=== PATIENT | female | born 1950 | race American Indian/Alaskan Native ===

== ENCOUNTER 2019-06-01 13:11 | Outpatient (CLI) | payer MEDICARE, OTHER ==
--- NOTE | 2019-06-02 10:22 | DEXA Report ---
Reason: MENOPAUSAL AND PERIMENOPAUSAL DISORDER. BONE DISOR Procedure Date: 06/01/2019 Accession Number: [id number] / [id number] Procedure: DEX - Dexa Spine and/or Hip CPT Code: FULL RESULT: EXAM: Dexa Spine and/or Hip DATE: 06/01/2019 1:48 PM CLINICAL HISTORY: MENOPAUSAL AND PERIMENOPAUSAL DISORDER. BONE DISOR TECHNIQUE: Dual energy x-ray absorptiometry (DXA) was performed on a Hydrophi System. Regions measured are the AP Spine, femoral neck, and if needed forearm. COMPARISON: None. In accordance with the International Society for Clinical Densitometry (ISCD) guidelines, data from previous exams may be reanalyzed using current recommendations and techniques. This is done to allow a more accurate basis for comparison with the current study. FINDINGS: The data for the lumbar spine is as follows: BMD (g/cm/cm) T-SCORE Z-SCORE REGION L1 1.132 0.0 0.9 L2 1.142 -0.5 0.4 L3 1.320 1.0 1.9 L4 1.371 1.4 2.3 TOTAL 1.243 0.5 1.4 NOTE: All evaluable vertebrae are used for classification The data for the hip is as follows: BMD (g/cm/cm) T-SCORE Z-SCORE REGION Neck 0.877 -1.2 -0.1 TOTAL 0.824 -1.5 -0.7 NOTE: The femoral neck or total proximal femur, whichever is lowest, is used for classification. IMPRESSION: THE WHO CLASSIFICATION BASED ON THE INTERNATIONAL REFERENCE STANDARD IS OSTEOPENIA. THE FRACTURE RISK IS INCREASED. RECOMMENDATION: Patients with diagnosis of osteoporosis or osteopenia should have regular bone mineral density assessment. For those eligible for Medicare, routine testing is allowed once every 2 years. Testing frequency can be increased for patients who have rapidly progressing disease or for those who are receiving medical therapy to restore bone mass. COMMENT: World Health Organization (WHO) definitions for osteoporosis and osteopenia: NORMAL BMD: T-score at -1.0 or higher, fracture risk is low OSTEOPENIA BMD: T-score between -1.0 and -2.5, fracture risk is increased. OSTEOPOROSIS BMD: T-score at -2.5 or lower, fracture risk is high. National Osteoporosis Foundation recommends: 1. Obtain adequate dietary calcium (at least 1200 mg per day) and vitamin D (400-800 international units per day). 2. Participate, as appropriate, in regular weightbearing and muscle-strengthening exercise. 3. Avoid tobacco use and reduce alcohol and caffeine intake. 4. For more detailed information see the website at www.NOF.org.
== END 2019-06-01 13:12 | disposition home or self-care (01) ==
LOC: DI 13:11
PROVIDERS: ATTEND Family Medicine
DX: M85.89 Other specified disorders of bone density and structure, multiple sites (principal); N95.1 Menopausal and female climacteric states; N95.9 Unspecified menopausal and perimenopausal disorder
CPT/HCPCS: 77080

== ENCOUNTER 2021-03-07 17:08 | Emergency (ER) | payer MEDICARE, OTHER ==
[2021-03-07] MEDS ORDERED: predniSONE 20 MG TABLET PO STA (18:04)
[2021-03-07] MEDS ORDERED: ALBUTEROL 1 PUFF INH STA (18:05)
--- OUTSIDE RECORDS SUMMARY | 2021-03-07 18:08 | EXTERNAL MEDICAL SUMMARY RPT | Continuity of Care Document ---
:1950 Demographics Phone Unavailable Preferred Language Unknown Marital Status Unknown Mosque Affiliation Unknown Race Unknown Ethnic Group Unknown Author Organization [facility] Address [address] [phone] Phone Social History date description facility [id number]
--- NOTE | 2021-03-07 18:10 | ED Physician Documentation ---
History of Present Illness - Stated complaint Stated Complaint: FEVER,CHILLS,COUGH - Chief complaint Chief Complaint: Resp - History obtained from History obtained from: Patient - History of Present Illness Pain level max: 0 Pain level now: 0 - Additonal information Additional information: Patient is a 70-year-old female with a history of COPD who has been coughing and congested for the past 2 to 3 days. Subjective fever at home. Nothing makes it better or worse. No pain. She states she had an appoint with her doctor today but was told that she needed a Covid test before she could be seen in the office. She has been fully vaccinated with the mother no vaccine. Received both doses. Does not know of any Covid exposures. She uses inhalers at home. States she is having some difficulty breathing as well. Review of Systems Ten Systems: 10 systems reviewed and negative Constitutional: denies: Fever, Chills Ears: denies: Ear pain Nose: denies: Rhinorrhea / runny nose, Congestion Throat: denies: Sore throat Cardiac: denies: Chest pain / pressure, Palpitations Respiratory: reports: Dyspnea, Cough, Wheezing GI: denies: Abdominal Pain, Nausea, Vomiting, Diarrhea Skin: denies: Rash Musculoskeletal: denies: Neck pain, Back pain Neurologic: denies: Headache PD PAST MEDICAL HISTORY - Past Medical History Cardiovascular: Hypertension, Coronary artery disease : Kidney stones Musculoskeletal: Rheumatoid arthritis - Past Surgical History 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, 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 - Present Medications Home Medications: Ambulatory Orders Medication Instructions Recorded Confirmed ALPRAZolam [Xanax] 0.5 mg PO HS 08/14/13 03/07/21 Letrozole 2.5 mg PO DAILY 08/14/13 03/07/21 Lisinopril [Zestril] 2.5 mg PO DAILY 08/14/13 03/07/21 Venlafaxine [Effexor] 75 mg PO BID 08/14/13 03/07/21 Zolpidem [Ambien] 10 mg PO HS 08/14/13 03/07/21 carvediloL [Carvedilol] 3.125 mg PO DAILY 08/14/13 03/07/21 Albuterol Sulf [Ventolin Hfa 1 - 2 puffs INH Q4HR PRN #1 inhaler 03/07/21 Inhaler] Doxycycline Hyclate 100 mg PO BID #20 03/07/21 predniSONE [Deltasone] 10 mg PO [id number] #42 tab 03/07/21 - Allergies Allergies/Adverse Reactions: Allergies Allergy/AdvReac Type Severity Reaction Status Date / Time No Known Drug Allergies Allergy Verified 03/07/21 17:25 - Social History Does the pt smoke?: Yes Smoking Status: Current every day smoker Does the pt drink ETOH?: No Does the pt have substance abuse?: No PD ED PE NORMAL - Vitals Vital signs reviewed: Yes - General General: Alert and oriented X 3, No acute distress - HEENT HEENT: Moist mucous membranes - Neck Neck: Supple, no meningeal sign - Cardiac Cardiac: RRR - Respiratory Respiratory: Other (wheezing bilaterally. ) - Abdomen Abdomen: Soft, Non tender, Non distended - Derm Derm: Warm and dry - Extremities Extremities: No edema - Neuro Neuro: Alert and oriented X 3 - Psych Psych: Normal mood, Normal affect Results - Vitals Vitals: Vital Signs - 24 hr 03/07/21 03/07/21 03/07/21 17:21 18:24 19:15 Temperature 35.9 C L Heart Rate 95 90 91 Respiratory 20 16 20 Rate Blood Pressure 162/84 H 112/100 H O2 Saturation 97 94 Oxygen O2 Source Room air - Rads (name of study) cxr Radiology: Prelim report reviewed, EMP read contemporaneously, See rad report (no acute disease) PD MEDICAL DECISION MAKING - ED course Complexity details: reviewed results, re-evaluated patient, considered differential, d/w patient ED course: 70-year-old female with what appears to be a COPD exacerbation. No evidence of pneumonia. Patient is well-appearing, nontoxic. Will place on doxycycline for the COPD exacerbation as well as steroids. Patient counseled regarding signs and symptoms for which I believe and urgent re-evaluation would be necessary. Patient with good understanding of and agreement to plan and is comfortable going home at this time This document was made in part using voice recognition software. While efforts are made to proofread this document, sound alike and grammatical errors may occur. Departure - Departure Disposition: 01 Home, Self Care Clinical Impression: Bronchitis, COPD exacerbation Condition: Good Instructions: ED COPD Flare Follow-Up: Martha Christianson MD [Primary Care Provider] - Within 1 week Prescriptions: Albuterol Sulf [Ventolin Hfa Inhaler] 1 - 2 puffs INH Q4HR PRN #1 inhaler PRN Reason: Shortness Of Air/Wheezing predniSONE [Deltasone] 10 mg PO [id number] #42 tab Doxycycline Hyclate 100 mg PO BID #20 Comments: Take all antibiotics until gone. Return if you worsen. Follow-up with your doctor for further care. Use the inhaler as instructed. Discharge Date/Time: 03/07/21 19:16
--- NOTE | 2021-03-07 18:53 | XRAY Report ---
PROCEDURE: Chest 1 View X-Ray INDICATIONS: cough TECHNIQUE: One view of the chest was acquired. COMPARISON: None available. FINDINGS: Surgical changes and devices: Bilateral breast clips. Left axillary clips. Lungs and pleura: No pleural effusions or pneumothorax. Lungs are clear. Mediastinum: Mediastinal contours appear normal. Heart size is normal. Bones and chest wall: No suspicious bony lesions. Overlying soft tissues appear unremarkable. IMPRESSION: No acute cardiopulmonary abnormality. Reviewed by: Rajendra Ascencio MD on 03/07/2021 6:52 PM PDT Approved by: Rajendra Ascencio MD on 03/07/2021 6:52 PM PDT Station ID: [id number]
[2021-03-07 19:16] VITALS: BP 112/100
== END 2021-03-07 19:16 | disposition home or self-care (01) ==
LOC: ED 17:08
DX: J44.1 Chronic obstructive pulmonary disease with (acute) exacerbation (principal); Z20.822 Contact with and (suspected) exposure to COVID-19; I10 Essential (primary) hypertension; F17.200 Nicotine dependence, unspecified, uncomplicated
CPT/HCPCS: 71045; 94640; 99284; J7512; U0004

== ENCOUNTER 2021-11-25 16:47 | Emergency (ER) | payer MEDICARE, OTHER ==
[2021-11-25 17:07] VITALS: BP 136/81
--- NOTE | 2021-11-25 17:08 | ED Physician Documentation ---
History of Present Illness - Stated complaint Stated Complaint: C+,FEVER - Chief complaint Chief Complaint: Heent - History obtained from History obtained from: Patient - History of Present Illness Timing: Today Pain level max: 0 Pain level now: 0 - Additonal information Additional information: 71-year-old female states that she has been sick for the past several days. Cough, congestion. She took a Covid test today that was positive at home. Came in for confirmatory test. She has an appoint with her doctor tomorrow. No difficulty breathing. Nothing makes it better or worse. She states she actually feels better than she did yesterday. Has had her 2 Covid vaccinations plus a booster. Review of Systems Constitutional: reports: Fever (Fever 2 days ago, none now). 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 - Present Medications Home Medications: Ambulatory Orders Medication Instructions Recorded Confirmed ALPRAZolam [Xanax] 0.5 mg PO HS 08/14/13 03/07/21 Letrozole 2.5 mg PO DAILY 08/14/13 03/07/21 Lisinopril [Zestril] 2.5 mg PO DAILY 08/14/13 03/07/21 Venlafaxine [Effexor] 75 mg PO BID 08/14/13 03/07/21 Zolpidem [Ambien] 10 mg PO HS 08/14/13 03/07/21 carvediloL [Carvedilol] 3.125 mg PO DAILY 08/14/13 03/07/21 Albuterol Sulf [Ventolin Hfa 1 - 2 puffs INH Q4HR PRN #1 inhaler 03/07/21 Inhaler] Doxycycline Hyclate 100 mg PO BID #20 03/07/21 predniSONE [Deltasone] 10 mg PO [id number] #42 tab 03/07/21 - Allergies Allergies/Adverse Reactions: Allergies Allergy/AdvReac Type Severity Reaction Status Date / Time No Known Drug Allergies Allergy Verified 11/25/21 17:01 - Social History Does the pt smoke?: Yes Smoking Status: Current every day smoker Does the pt drink ETOH?: No Does the pt have substance abuse?: No PD ED PE NORMAL - Vitals Vital signs reviewed: Yes - General General: Alert and oriented X 3, No acute distress - HEENT HEENT: Moist mucous membranes - Neck Neck: Supple, no meningeal sign - Cardiac Cardiac: RRR - Respiratory Respiratory: No respiratory distress, Clear bilaterally - Derm Derm: Warm and dry - Neuro Neuro: Alert and oriented X 3 - Psych Psych: Normal mood, Normal affect Results - Vitals Vitals: Vital Signs - 24 hr 11/25/21 16:57 Temperature 37.3 C Heart Rate 86 Respiratory 17 Rate Blood Pressure 136/81 H O2 Saturation 99 Oxygen O2 Source Room air PD MEDICAL DECISION MAKING - ED course Complexity details: considered differential, d/w patient ED course: Patient is well-appearing, nontoxic. Afebrile. No hypoxia. No respiratory distress. Covid test sent. Patient counseled regarding signs and symptoms for which I believe and urgent re-evaluation would be necessary. Patient with good understanding of and agreement to plan and is comfortable going home at this time This document was made in part using voice recognition software. While efforts are made to proofread this document, sound alike and grammatical errors may occur. Departure - Departure Disposition: 01 Home, Self Care Clinical Impression: COVID-19 Condition: Good Instructions: ED Viral Syndrome Follow-Up: Austin Lund MD [Primary Care Provider] - As Needed Comments: You have a Covid test pending. You need to self quarantine until the result is done and negative. The results should be done in 24-48 hours. We will call with a positive result, the fastest way to get a negative result for confirmation though is to go to the hospital website at [email or web address], click on the my [email or web address] tab and sign up for the patient portal. If any of your friends and/or family need to be tested, they can call the hospital at [phone] for an appointment to have their Covid test. Discharge Date/Time: 11/25/21 17:24
== END 2021-11-25 17:24 | disposition home or self-care (01) ==
LOC: ED 16:47
DX: U07.1 COVID-19 (principal); I10 Essential (primary) hypertension; F17.200 Nicotine dependence, unspecified, uncomplicated
CPT/HCPCS: 99282; 99283; U0004

== ENCOUNTER 2022-08-18 14:43 | Emergency (ER) | payer MEDICARE, OTHER ==
--- OUTSIDE RECORDS SUMMARY | 2022-08-18 14:52 | EXTERNAL MEDICAL SUMMARY RPT | Continuity of Care Document ---
:1950 Author Organization [facility] [place] Address [address] [place] [address] Phone Allergies and Intolerances date description facility type (no date) No Known Drug Allergies [facility] (unkn own) Encounters No information. Functional Status No information. Immunizations No information. Medications No information. Problems No information. Procedures No information. Results/Labs test date author facility value unit interpret ation Result panel 1 (unknown) (no (unknown) (unknown) (no value) (units (unk nown) date) unknown) (unknown) (no (unknown) (unknown) [address] [place] [address] (units (unknown) date) unknown) (unknown) (no (unknown) (unknown) [place] [address] (unit s (unknown) date) unknown) (unknown) (no (unknown) (unknown) [facility] (units (unknown) date) unknown) (unknown) (no (unknown) (unknown) Signed (units (unkno wn) date) unknown) (unknown) (no (unknown) (unknown) XRay Report (units (un known) date) unknown) (unknown) (no (unknown) (unknown) (no value) (units (unk nown) date) unknown) (unknown) (no (unknown) (unknown) 07/09/22 (units (unkno wn) date) unknown) (unknown) (no (unknown) (unknown) Approved by: Matt (units (unknown) date) Zhao Murray on unknown) 07/09/2022 at 16:44 (unknown) (no (unknown) (unknown) Approved by: Rajendra (units (unknown) date) Zhao Ascencio on unknown) 07/09/2022 at 17:02 (unknown) (no (unknown) (unknown) Approved by: Rajendra (units (unknown) date) Zhao Ascencio on unknown) 07/09/2022 at 17:07 (unknown) (no (unknown) (unknown) Approved by: Rajendra (units (unknown) date) Zhao Ascencio on unknown) 07/09/2022 at 17:09 (unknown) (no (unknown) (unknown) Bones and chest (units (unknown) date) wall: No suspicious unknown) bony abnormalities. Left clavicle (unknown) (no (unknown) (unknown) Bones: Left (units (un known) date) clavicle segmental unknown) fracture. No humeral head fracture or (unknown) (no (unknown) (unknown) Bones: No fractures (unit s (unknown) date) or dislocations. No unknown) suspicious bony lesions. Moderate (unknown) (no (unknown) (unknown) Bones: Segmental (units (unknown) date) left clavicle unknown) fracture with fractures at the mid and distal (unknown) (no (unknown) (unknown) CHEST 1 VIEW, (units ( unknown) date) 04/19/2010, 15:14. unknown) (unknown) (no (unknown) (unknown) COMPARISON[facility] date[facility], CR, XR unknown) CHEST 2V, 08/20/2021, 15:40. [facility] (unknown) (no (unknown) (unknown) COMPARISON: [facility] (units (unknown) date) [facility], CR, XR unknown) CLAVICLE LT, 07/09/2022, 16:23. (unknown) (no (unknown) (unknown) COMPARISON: None. (units (unknown) date) unknown) (unknown) (no (unknown) (unknown) Dictated by: Rajendra (units (unknown) date) Zhao Ascencio on unknown) 07/09/2022 at 16:58 (unknown) (no (unknown) (unknown) Dictated by: Rajendra (units (unknown) date) Zhao Ascencio on unknown) 07/09/2022 at 17:02 (unknown) (no (unknown) (unknown) Dictated by: Rajendra (units (unknown) date) Zhao Ascencio on unknown) 07/09/2022 at 17:07 (unknown) (no (unknown) (unknown) FINDINGS: (units (unkn own) date) unknown) (unknown) (no (unknown) (unknown) IMPRESSION: (units (un known) date) unknown) (unknown) (no (unknown) (unknown) IMPRESSION: (units (un known) date) Osteoarthritis unknown) without fracture (unknown) (no (unknown) (unknown) INDICATIONS: PAIN (units (unknown) date) S/P FALL unknown) (unknown) (no (unknown) (unknown) Left clavicle (units ( unknown) date) segmental fracture. unknown) (unknown) (no (unknown) (unknown) Lungs and pleura: (units (unknown) date) Minimal streaky unknown) opacity at the left lung base. No pleural (unknown) (no (unknown) (unknown) Mediastinum: (units (u nknown) date) Mediastinal contours unknown) are normal. Heart size is normal. (unknown) (no (unknown) (unknown) Minimal streaky (units (unknown) date) opacity at the left unknown) lung base. Suspect atelectasis. (unknown) (no (unknown) (unknown) No humeral head (units (unknown) date) fracture or unknown) dislocation. (unknown) (no (unknown) (unknown) Please see (units (unk nown) date) separately dictated unknown) left clavicle radiographs. Left clavicle (unknown) (no (unknown) (unknown) Segmental left (units (unknown) date) clavicle fracture. unknown) (unknown) (no (unknown) (unknown) Soft tissues: No (units (unknown) date) joint effusion. No unknown) suspicious soft tissue calcifications. (unknown) (no (unknown) (unknown) Soft tissues: No (units (unknown) date) suspicious soft unknown) tissue calcifications. (unknown) (no (unknown) (unknown) Soft tissues: No (units (unknown) date) suspicious soft unknown) tissue calcifications. Left axillary clips. (unknown) (no (unknown) (unknown) Surgical changes (units (unknown) date) and devices: Left unknown) axillary and breast clips. Right breast (unknown) (no (unknown) (unknown) TECHNIQUE: 2 views (units (unknown) date) of the chest were unknown) acquired. (unknown) (no (unknown) (unknown) TECHNIQUE: 2 views (units (unknown) date) of the clavicle were unknown) acquired. (unknown) (no (unknown) (unknown) TECHNIQUE: 3 views (units (unknown) date) of the knee were unknown) acquired. (unknown) (no (unknown) (unknown) TECHNIQUE: 3 views (units (unknown) date) of the shoulder were unknown) acquired. (unknown) (no (unknown) (unknown) The midportion (units (unknown) date) fracture is apex unknown) superior. There is moderate displacement of (unknown) (no (unknown) (unknown) fracture. Soft (units (unknown) date) tissues appear unknown) unremarkable. (unknown) (no (unknown) (unknown) fracture. The (units ( unknown) date) acromioclavicular unknown) joint is not widened. No suspicious bony (unknown) (no (unknown) (unknown) joint effusion. (units (unknown) date) Small lateral unknown) marginal osteophytes (unknown) (no (unknown) (unknown) lateral (units (unkno wn) date) compartmental joint unknown) space narrowing. Mild patellofemoral space (unknown) (no (unknown) (unknown) or pneumothorax. (units (unknown) date) unknown) (unknown) (no (unknown) (unknown) suspicious bony (units (unknown) date) lesions. Visualized unknown) ribs appear intact. (unknown) (no (unknown) (unknown) [id number] (units (unkn own) date) unknown) (unknown) (no (unknown) (unknown) Accession Number: (units (unknown) date) [id number] unknown) (unknown) (no (unknown) (unknown) Accession Number: (units (unknown) date) [id number] unknown) (unknown) (no (unknown) (unknown) Accession Number: (units (unknown) date) [id number] unknown) (unknown) (no (unknown) (unknown) Accession Number: (units (unknown) date) [id number] unknown) (unknown) (no (unknown) (unknown) Age/Sex: 71 / F (units (unknown) date) Date of Service: unknown) (unknown) (no (unknown) (unknown) : 1950 (units (unknown) date) Acct:[id number] unknown) (unknown) (no (unknown) (unknown) [facility], , (units ( unknown) date) unknown) (unknown) (no (unknown) (unknown) Loc: DI (units (unkno wn) date) unknown) (unknown) (no (unknown) (unknown) Ordering Provider: (units (unknown) date) Austin Lund MD unknown) (unknown) (no (unknown) (unknown) PROCEDURE: XR CHEST (unit s (unknown) date) 2V unknown) (unknown) (no (unknown) (unknown) PROCEDURE: XR (units ( unknown) date) CLAVICLE LT unknown) (unknown) (no (unknown) (unknown) PROCEDURE: XR KNEE (units (unknown) date) RT 3V unknown) (unknown) (no (unknown) (unknown) PROCEDURE: XR (units ( unknown) date) SHOULDER LT MIN 2V unknown) (unknown) (no (unknown) (unknown) Patient: (units (unkno wn) date) Kamilla Metz N unknown) MR#: [id number] (unknown) (no (unknown) (unknown) Procedure: XR chest (unit s (unknown) date) 2V unknown) (unknown) (no (unknown) (unknown) Procedure: XR (units ( unknown) date) clavicle LT unknown) (unknown) (no (unknown) (unknown) Procedure: XR knee (units (unknown) date) RT 3V unknown) (unknown) (no (unknown) (unknown) Procedure: XR (units ( unknown) date) shoulder LT min 2V unknown) (unknown) (no (unknown) (unknown) clips. (units (unkno wn) date) unknown) (unknown) (no (unknown) (unknown) dislocation. No (units (unknown) date) unknown) (unknown) (no (unknown) (unknown) effusions (units (unkn own) date) unknown) (unknown) (no (unknown) (unknown) fracture. (units (unkn own) date) unknown) (unknown) (no (unknown) (unknown) lesions. (units (unkno wn) date) unknown) (unknown) (no (unknown) (unknown) medial (units (unkno wn) date) unknown) (unknown) (no (unknown) (unknown) narrowing. No (units ( unknown) date) unknown) (unknown) (no (unknown) (unknown) portions. (units (unkn own) date) unknown) (unknown) (no (unknown) (unknown) segmental (units (unkn own) date) unknown) (unknown) (no (unknown) (unknown) the distal (units (unk nown) date) unknown) Result panel 2 (unknown) (no (unknown) (unknown) (no value) (units (unk nown) date) unknown) (unknown) (no (unknown) (unknown) Radiologist's (units ( unknown) date) Impression: unknown) (unknown) (no (unknown) (unknown) Date of Service: (units (unknown) date) 07/09/22 unknown) (unknown) (no (unknown) (unknown) (no value) (units (unk nown) date) unknown) (unknown) (no (unknown) (unknown) 0.5 mg PO PRN Qty: (units (unknown) date) 0 unknown) (unknown) (no (unknown) (unknown) 1,000 mcg PO DAILY (units (unknown) date) unknown) (unknown) (no (unknown) (unknown) 1,000 unit PO DAILY (unit s (unknown) date) unknown) (unknown) (no (unknown) (unknown) 10 mg PO HS Qty: 0 (units (unknown) date) unknown) (unknown) (no (unknown) (unknown) [address] [place] [address] (units (unknown) date) unknown) (unknown) (no (unknown) (unknown) 2.5 mg PO QDAY Qty: (unit s (unknown) date) 0 unknown) (unknown) (no (unknown) (unknown) 2.5 mg PO QDAY Qty: (unit s (unknown) date) 90 1RF unknown) (unknown) (no (unknown) (unknown) 3.125 mg PO QDAY (units (unknown) date) Qty: 0 unknown) (unknown) (no (unknown) (unknown) 50 mg PO DAILY (units (unknown) date) unknown) (unknown) (no (unknown) (unknown) 500 mg PO DAILY (units (unknown) date) unknown) (unknown) (no (unknown) (unknown) 650 mg PRN Qty: 0 (units (unknown) date) unknown) (unknown) (no (unknown) (unknown) 75 mg PO QDAY Qty: (units (unknown) date) 0 unknown) (unknown) (no (unknown) (unknown) Allergies (units (unkn own) date) unknown) (unknown) (no (unknown) (unknown) [place] [address] (unit s (unknown) date) unknown) (unknown) (no (unknown) (unknown) Emergency Report (units (unknown) date) unknown) (unknown) (no (unknown) (unknown) Home Medications (units (unknown) date) unknown) (unknown) (no (unknown) (unknown) [facility] (units (unknown) date) unknown) (unknown) (no (unknown) (unknown) [facility] (units (unknown) date) [address] unknown) [place] [address] (unknown) (no (unknown) (unknown) Label Comments: (units (unknown) date) unknown) (unknown) (no (unknown) (unknown) PT TO VERIFY DOSE (units (unknown) date) unknown) (unknown) (no (unknown) (unknown) Previous Rx's (units ( unknown) date) unknown) (unknown) (no (unknown) (unknown) Signed (units (unkno wn) date) unknown) (unknown) (no (unknown) (unknown) Vital Signs - 8 hr (units (unknown) date) unknown) (unknown) (no (unknown) (unknown) XRay Report (units (un known) date) unknown) (unknown) (no (unknown) (unknown) (no value) (units (unk nown) date) unknown) (unknown) (no (unknown) (unknown) [tylenol] (units (unkn own) date) unknown) (unknown) (no (unknown) (unknown) alprazolam [Xanax (units (unknown) date) XR] 0.5 MG tablet unknown) extended release 24 hr (unknown) (no (unknown) (unknown) calcium carbonate (units (unknown) date) [Calcium 500] 500 mg unknown) calcium (1,250 mg) Tablet (unknown) (no (unknown) (unknown) carvedilol [Coreg] (units (unknown) date) 3.125 MG tablet unknown) (unknown) (no (unknown) (unknown) cholecalciferol (units (unknown) date) (vitamin D3) unknown) [Vitamin D3] 1,000 unit Tablet (unknown) (no (unknown) (unknown) cyanocobalamin (units (unknown) date) (vitamin B-12) unknown) [Vitamin B-12] 1,000 mcg Tablet (unknown) (no (unknown) (unknown) letrozole [Femara] (units (unknown) date) 2.5 MG tablet unknown) (unknown) (no (unknown) (unknown) lisinopril 2.5 MG (units (unknown) date) tablet unknown) (unknown) (no (unknown) (unknown) venlafaxine (units (un known) date) [Effexor XR] 75 MG unknown) capsule,extended release 24hr (unknown) (no (unknown) (unknown) zinc 50 mg Tablet (units (unknown) date) unknown) (unknown) (no (unknown) (unknown) zolpidem [Ambien] (units (unknown) date) 10 MG tablet unknown) (unknown) (no (unknown) (unknown) 07/09/22 (units (unkno wn) date) unknown) (unknown) (no (unknown) (unknown) Medication (units (unk nown) date) Instructions unknown) Recorded (unknown) (no (unknown) (unknown) Medication (units (unk nown) date) Instructions unknown) Recorded Confirmed (unknown) (no (unknown) (unknown) distal (units (unkno wn) date) unknown) (unknown) (no (unknown) (unknown) tabs (units (unkno wn) date) unknown) (unknown) (no (unknown) (unknown) (1,250 mg) tablet (units (unknown) date) (Calcium 500) unknown) (unknown) (no (unknown) (unknown) [id number] (units (unkno wn) date) unknown) (unknown) (no (unknown) (unknown) 1,000 mcg tablet (units (unknown) date) (Vitamin B-12) unknown) (unknown) (no (unknown) (unknown) 17:01 (units (unkno wn) date) unknown) (unknown) (no (unknown) (unknown) ? (units (unkno wn) date) unknown) (unknown) (no (unknown) (unknown) Accession Number: (units (unknown) date) [id number] ?? unknown) (unknown) (no (unknown) (unknown) Acct:[id number] (units (unknown) date) unknown) (unknown) (no (unknown) (unknown) Age/Sex: 71 / F (units (unknown) date) unknown) (unknown) (no (unknown) (unknown) Age/Sex: 71 / F (units (unknown) date) unknown) (unknown) (no (unknown) (unknown) Allergy/AdvReac (units (unknown) date) Type Severity unknown) Reaction Status Date / Time (unknown) (no (unknown) (unknown) Approved by: Rajendra (units (unknown) date) Zhao Ascencio on unknown) 07/09/2022 at 17:07 ? (unknown) (no (unknown) (unknown) Blood Pressure (units (unknown) date) 146/96 H 07/09/22 unknown) 17:01 (unknown) (no (unknown) (unknown) Blood Pressure (units (unknown) date) 146/96 H unknown) (unknown) (no (unknown) (unknown) Bones:? Segmental (units (unknown) date) left clavicle unknown) fracture with fractures at the mid and distal (unknown) (no (unknown) (unknown) COMPARISON:? None. (units (unknown) date) unknown) (unknown) (no (unknown) (unknown) Chief Complaint: (units (unknown) date) Extremity Injury, unknown) Upper (unknown) (no (unknown) (unknown) Course (units (unkno wn) date) unknown) (unknown) (no (unknown) (unknown) D3) (units (unkno wn) date) unknown) (unknown) (no (unknown) (unknown) : 1950 (units (unknown) date) Acct:[id number] unknown) (unknown) (no (unknown) (unknown) : 1950 (units (unknown) date) unknown) (unknown) (no (unknown) (unknown) Date of Service: (units (unknown) date) 07/09/22 unknown) (unknown) (no (unknown) (unknown) Departure (units (unkn own) date) unknown) (unknown) (no (unknown) (unknown) Dictated by: Rajendra (units (unknown) date) Zhao Ascencio on unknown) 07/09/2022 at 17:02 ? ? (unknown) (no (unknown) (unknown) Discharge Plan (units (unknown) date) unknown) (unknown) (no (unknown) (unknown) ER Physician: (units ( unknown) date) Perry Gonzalez unknown) (unknown) (no (unknown) (unknown) Exam (units (unkno wn) date) unknown) (unknown) (no (unknown) (unknown) Extremity x-ray #1: (unit s (unknown) date) unknown) (unknown) (no (unknown) (unknown) FINDINGS:? (units (unk nown) date) unknown) (unknown) (no (unknown) (unknown) General (units (unkno wn) date) unknown) (unknown) (no (unknown) (unknown) HPI - Extremity (units (unknown) date) Injury (Upper) unknown) (unknown) (no (unknown) (unknown) IMPRESSION:? (units (u nknown) date) unknown) (unknown) (no (unknown) (unknown) INDICATIONS:? PAIN (units (unknown) date) S/P FALL unknown) (unknown) (no (unknown) (unknown) Imaging Data (units (u nknown) date) unknown) (unknown) (no (unknown) (unknown) Initial Vital Signs (unit s (unknown) date) unknown) (unknown) (no (unknown) (unknown) Initial Vital (units ( unknown) date) Signs: unknown) (unknown) (no (unknown) (unknown) Loc: DI (units (unkno wn) date) unknown) (unknown) (no (unknown) (unknown) Austin Lund MD (unit s (unknown) date) [Primary Care unknown) Provider] - (unknown) (no (unknown) (unknown) MDM - Extremity (units (unknown) date) Injury (Upper) unknown) (unknown) (no (unknown) (unknown) MR#: [id number] (units (unknown) date) unknown) (unknown) (no (unknown) (unknown) Mode of arrival: (units (unknown) date) Ambulatory unknown) (unknown) (no (unknown) (unknown) No Action (units (unkn own) date) unknown) (unknown) (no (unknown) (unknown) No Known Drug (units ( unknown) date) Allergies Allergy unknown) Verified 07/09/22 17:06 (unknown) (no (unknown) (unknown) Ordering Provider: (units (unknown) date) Austin Lund MD unknown) (unknown) (no (unknown) (unknown) Oxygen Delivery (units (unknown) date) Method 07/09/22 unknown) 17:01 (unknown) (no (unknown) (unknown) Oxygen Delivery (units (unknown) date) Method Room Air unknown) (unknown) (no (unknown) (unknown) PROCEDURE:? XR (units (unknown) date) CLAVICLE LT unknown) (unknown) (no (unknown) (unknown) Patient History (units (unknown) date) unknown) (unknown) (no (unknown) (unknown) Patient: (units (unkno wn) date) Kamilla Metz N unknown) MR#: [id number] (unknown) (no (unknown) (unknown) Patient: (units (unkno wn) date) Kamilla Metz N unknown) (unknown) (no (unknown) (unknown) Prescriptions: (units (unknown) date) unknown) (unknown) (no (unknown) (unknown) Procedure: XR (units ( unknown) date) clavicle LT unknown) (unknown) (no (unknown) (unknown) Pulse Oximetry 97 (units (unknown) date) 07/09/22 17:01 unknown) (unknown) (no (unknown) (unknown) Pulse Oximetry 97 (units (unknown) date) unknown) (unknown) (no (unknown) (unknown) Pulse Rate 83 (units ( unknown) date) 07/09/22 17:01 unknown) (unknown) (no (unknown) (unknown) Pulse Rate 83 (units ( unknown) date) unknown) (unknown) (no (unknown) (unknown) Referrals: (units (unk nown) date) unknown) (unknown) (no (unknown) (unknown) Related Data (units (u nknown) date) unknown) (unknown) (no (unknown) (unknown) Respiratory Rate (units (unknown) date) 200 H 07/09/22 17:01 unknown) (unknown) (no (unknown) (unknown) Respiratory Rate (units (unknown) date) 200 H unknown) (unknown) (no (unknown) (unknown) Segmental left (units (unknown) date) clavicle fracture. unknown) (unknown) (no (unknown) (unknown) Signed By: (units (unk nown) date) unknown) (unknown) (no (unknown) (unknown) Smoking Status: (units (unknown) date) Former smoker unknown) (unknown) (no (unknown) (unknown) Smoking Status: (units (unknown) date) Former smoker unknown) (unknown) (no (unknown) (unknown) Social History (units (unknown) date) unknown) (unknown) (no (unknown) (unknown) Soft tissues:? No (units (unknown) date) suspicious soft unknown) tissue calcifications.? (unknown) (no (unknown) (unknown) Source: patient (units (unknown) date) unknown) (unknown) (no (unknown) (unknown) Stated Complaint: (units (unknown) date) lt shoulder pain unknown) (unknown) (no (unknown) (unknown) Substance Use Type: (unit s (unknown) date) does not use unknown) (unknown) (no (unknown) (unknown) TECHNIQUE:? 2 views (unit s (unknown) date) of the clavicle were unknown) acquired.? (unknown) (no (unknown) (unknown) Temperature 98.1 F (units (unknown) date) 07/09/22 17:01 unknown) (unknown) (no (unknown) (unknown) Temperature 98.1 F (units (unknown) date) unknown) (unknown) (no (unknown) (unknown) The midportion (units ( unknown) date) fracture is apex unknown) superior.? There is moderate displacement of the (unknown) (no (unknown) (unknown) Time Seen by (units (u nknown) date) Provider: 07/09/22 unknown) 18:44 (unknown) (no (unknown) (unknown) Vital Signs (units (un known) date) unknown) (unknown) (no (unknown) (unknown) Vital signs: (units (u nknown) date) unknown) (unknown) (no (unknown) (unknown) [tylenol] 650 mg (units (unknown) date) PRN ##0 06/02/13 unknown) 09/09/19 (unknown) (no (unknown) (unknown) alcohol intake (units (unknown) date) frequency: 0-2 unknown) drinks per day (unknown) (no (unknown) (unknown) alprazolam 0.5 mg (units (unknown) date) tablet,extended 0.5 unknown) mg PO PRN ##0 06/02/13 09/09/19 (unknown) (no (unknown) (unknown) calcium carbonate (units (unknown) date) 500 mg calcium 500 unknown) mg PO DAILY 06/10/19 09/09/19 (unknown) (no (unknown) (unknown) carvedilol 3.125 mg (unit s (unknown) date) tablet (Coreg) 3.125 unknown) mg PO QDAY ##0 06/02/13 09/09/19 (unknown) (no (unknown) (unknown) cholecalciferol (units (unknown) date) (vitamin D3) 25 unknown) 1,000 unit PO DAILY 06/10/19 09/09/19 (unknown) (no (unknown) (unknown) cyanocobalamin (units (unknown) date) (vitamin B-12) 1,000 unknown) mcg PO DAILY 06/10/19 09/09/19 (unknown) (no (unknown) (unknown) fracture.? The (units (unknown) date) acromioclavicular unknown) joint is not widened.? No suspicious bony (unknown) (no (unknown) (unknown) lesions.? (units (unkn own) date) unknown) (unknown) (no (unknown) (unknown) letrozole 2.5 mg (units (unknown) date) tablet (Femara) 2.5 unknown) mg PO QDAY breast cancer #90 09/09/19 (unknown) (no (unknown) (unknown) lisinopril 2.5 mg (units (unknown) date) tablet 2.5 mg PO unknown) QDAY ##0 06/02/13 09/09/19 (unknown) (no (unknown) (unknown) mcg (1,000 unit) (units (unknown) date) tablet (Vitamin unknown) (unknown) (no (unknown) (unknown) portions.? (units (unk nown) date) unknown) (unknown) (no (unknown) (unknown) release 24 hr (units ( unknown) date) (Effexor XR) unknown) (unknown) (no (unknown) (unknown) release 24 hr (units ( unknown) date) (Xanax XR) unknown) (unknown) (no (unknown) (unknown) venlafaxine 75 mg (units (unknown) date) capsule,extended 75 unknown) mg PO QDAY ##0 06/02/13 09/09/19 (unknown) (no (unknown) (unknown) zinc 50 mg tablet (units (unknown) date) 50 mg PO DAILY unknown) 06/10/19 09/09/19 (unknown) (no (unknown) (unknown) zolpidem 10 mg (units (unknown) date) tablet (Ambien) 10 unknown) mg PO HS ##0 06/02/13 09/09/19 Result panel 3 (unknown) (no (unknown) (unknown) (no value) (units (unk nown) date) unknown) (unknown) (no (unknown) (unknown) Radiologist's (units ( unknown) date) Impression: unknown) (unknown) (no (unknown) (unknown) Date of Service: (units (unknown) date) 07/09/22 unknown) (unknown) (no (unknown) (unknown) (no value) (units (unk nown) date) unknown) (unknown) (no (unknown) (unknown) 0.5 mg PO PRN Qty: (units (unknown) date) 0 unknown) (unknown) (no (unknown) (unknown) 1,000 mcg PO DAILY (units (unknown) date) unknown) (unknown) (no (unknown) (unknown) 1,000 unit PO DAILY (unit s (unknown) date) unknown) (unknown) (no (unknown) (unknown) 10 mg PO HS Qty: 0 (units (unknown) date) unknown) (unknown) (no (unknown) (unknown) [address] [place] [address] (units (unknown) date) unknown) (unknown) (no (unknown) (unknown) 2.5 mg PO QDAY Qty: (unit s (unknown) date) 0 unknown) (unknown) (no (unknown) (unknown) 2.5 mg PO QDAY Qty: (unit s (unknown) date) 90 1RF unknown) (unknown) (no (unknown) (unknown) 3.125 mg PO QDAY (units (unknown) date) Qty: 0 unknown) (unknown) (no (unknown) (unknown) 50 mg PO DAILY (units (unknown) date) unknown) (unknown) (no (unknown) (unknown) 500 mg PO DAILY (units (unknown) date) unknown) (unknown) (no (unknown) (unknown) 650 mg PRN Qty: 0 (units (unknown) date) unknown) (unknown) (no (unknown) (unknown) 75 mg PO QDAY Qty: (units (unknown) date) 0 unknown) (unknown) (no (unknown) (unknown) Allergies (units (unkn own) date) unknown) (unknown) (no (unknown) (unknown) Sheryl [place] [address] (unit s (unknown) date) unknown) (unknown) (no (unknown) (unknown) Emergency Report (units (unknown) date) unknown) (unknown) (no (unknown) (unknown) Home Medications (units (unknown) date) unknown) (unknown) (no (unknown) (unknown) [facility] (units (unknown) date) unknown) (unknown) (no (unknown) (unknown) [facility] (units (unknown) date) [address] unknown) [place] [address] (unknown) (no (unknown) (unknown) Label Comments: (units (unknown) date) unknown) (unknown) (no (unknown) (unknown) PT TO VERIFY DOSE (units (unknown) date) unknown) (unknown) (no (unknown) (unknown) Previous Rx's (units ( unknown) date) unknown) (unknown) (no (unknown) (unknown) Signed (units (unkno wn) date) unknown) (unknown) (no (unknown) (unknown) Vital Signs - 8 hr (units (unknown) date) unknown) (unknown) (no (unknown) (unknown) XRay Report (units (un known) date) unknown) (unknown) (no (unknown) (unknown) (no value) (units (unk nown) date) unknown) (unknown) (no (unknown) (unknown) [tylenol] (units (unkn own) date) unknown) (unknown) (no (unknown) (unknown) alprazolam [Xanax (units (unknown) date) XR] 0.5 MG tablet unknown) extended release 24 hr (unknown) (no (unknown) (unknown) calcium carbonate (units (unknown) date) [Calcium 500] 500 mg unknown) calcium (1,250 mg) Tablet (unknown) (no (unknown) (unknown) carvedilol [Coreg] (units (unknown) date) 3.125 MG tablet unknown) (unknown) (no (unknown) (unknown) cholecalciferol (units (unknown) date) (vitamin D3) unknown) [Vitamin D3] 1,000 unit Tablet (unknown) (no (unknown) (unknown) cyanocobalamin (units (unknown) date) (vitamin B-12) unknown) [Vitamin B-12] 1,000 mcg Tablet (unknown) (no (unknown) (unknown) letrozole [Femara] (units (unknown) date) 2.5 MG tablet unknown) (unknown) (no (unknown) (unknown) lisinopril 2.5 MG (units (unknown) date) tablet unknown) (unknown) (no (unknown) (unknown) venlafaxine (units (un known) date) [Effexor XR] 75 MG unknown) capsule,extended release 24hr (unknown) (no (unknown) (unknown) zinc 50 mg Tablet (units (unknown) date) unknown) (unknown) (no (unknown) (unknown) zolpidem [Ambien] (units (unknown) date) 10 MG tablet unknown) (unknown) (no (unknown) (unknown) 07/09/22 (units (unkno wn) date) unknown) (unknown) (no (unknown) (unknown) Medication (units (unk nown) date) Instructions unknown) Recorded (unknown) (no (unknown) (unknown) Medication (units (unk nown) date) Instructions unknown) Recorded Confirmed (unknown) (no (unknown) (unknown) distal (units (unkno wn) date) unknown) (unknown) (no (unknown) (unknown) tabs (units (unkno wn) date) unknown) (unknown) (no (unknown) (unknown) (1,250 mg) tablet (units (unknown) date) (Calcium 500) unknown) (unknown) (no (unknown) (unknown) [id number] (units (unkno wn) date) unknown) (unknown) (no (unknown) (unknown) 1,000 mcg tablet (units (unknown) date) (Vitamin B-12) unknown) (unknown) (no (unknown) (unknown) 17:01 (units (unkno wn) date) unknown) (unknown) (no (unknown) (unknown) 71-year-old female, (unit s (unknown) date) former smoker, unknown) presents emergency department with left (unknown) (no (unknown) (unknown) ? (units (unkno wn) date) unknown) (unknown) (no (unknown) (unknown) Accession Number: (units (unknown) date) [id number] ?? unknown) (unknown) (no (unknown) (unknown) Acct:[id number] (units (unknown) date) unknown) (unknown) (no (unknown) (unknown) Active Range of (units (unknown) date) motion is full and unknown) without pain. (unknown) (no (unknown) (unknown) Age/Sex: 71 / F (units (unknown) date) unknown) (unknown) (no (unknown) (unknown) Age/Sex: 71 / F (units (unknown) date) unknown) (unknown) (no (unknown) (unknown) Allergy/AdvReac (units (unknown) date) Type Severity unknown) Reaction Status Date / Time (unknown) (no (unknown) (unknown) Approved by: Rajendra (units (unknown) date) Zhao Ascencio on unknown) 07/09/2022 at 17:07 ? (unknown) (no (unknown) (unknown) July 04, due to (unit s (unknown) date) her right knee unknown) giving way. Patient denies hitting her head (unknown) (no (unknown) (unknown) Blood Pressure (units (unknown) date) 146/96 H 07/09/22 unknown) 17:01 (unknown) (no (unknown) (unknown) Blood Pressure (units (unknown) date) 146/96 H unknown) (unknown) (no (unknown) (unknown) Bones:? Segmental (units (unknown) date) left clavicle unknown) fracture with fractures at the mid and distal (unknown) (no (unknown) (unknown) CARDIOVASCULAR: (units (unknown) date) Denies palpitations, unknown) edema. (unknown) (no (unknown) (unknown) CARDIOVASCULAR: (units (unknown) date) Regular rate and unknown) rhythm without murmurs, peripheral pulses (unknown) (no (unknown) (unknown) COMPARISON:? None. (units (unknown) date) unknown) (unknown) (no (unknown) (unknown) Chief Complaint: (units (unknown) date) Extremity Injury, unknown) Upper (unknown) (no (unknown) (unknown) Course (units (unkno wn) date) unknown) (unknown) (no (unknown) (unknown) D3) (units (unkno wn) date) unknown) (unknown) (no (unknown) (unknown) : 1950 (units (unknown) date) Acct:[id number] unknown) (unknown) (no (unknown) (unknown) : 1950 (units (unknown) date) unknown) (unknown) (no (unknown) (unknown) Date of Service: (units (unknown) date) 07/09/22 unknown) (unknown) (no (unknown) (unknown) Departure (units (unkn own) date) unknown) (unknown) (no (unknown) (unknown) Dictated by: Rajendra (units (unknown) date) Zhao Ascencio on unknown) 07/09/2022 at 17:02 ? ? (unknown) (no (unknown) (unknown) Discharge Plan (units (unknown) date) unknown) (unknown) (no (unknown) (unknown) ER Physician: (units ( unknown) date) Perry Gonzalez unknown) (unknown) (no (unknown) (unknown) Exam (units (unkno wn) date) unknown) (unknown) (no (unknown) (unknown) Exam Narrative: (units (unknown) date) unknown) (unknown) (no (unknown) (unknown) Extrem (units (unkno wn) date) unknown) (unknown) (no (unknown) (unknown) Extremity x-ray #1: (unit s (unknown) date) unknown) (unknown) (no (unknown) (unknown) FINDINGS:? (units (unk nown) date) unknown) (unknown) (no (unknown) (unknown) GASTROINTESTINAL: (units (unknown) date) Denies nausea, unknown) vomiting, abdominal pain, diarrhea, (unknown) (no (unknown) (unknown) GENERAL: Denies (units (unknown) date) chills, fatigue, unknown) fever, sweats. See HPI (unknown) (no (unknown) (unknown) GENERAL: This is a (units (unknown) date) well-nourished, unknown) well-developed patient, in no acute distress (unknown) (no (unknown) (unknown) : Denies dysuria, (unit s (unknown) date) frequency, unknown) incontinence, hematuria, urinary retention, (unknown) (no (unknown) (unknown) General (units (unkno wn) date) unknown) (unknown) (no (unknown) (unknown) HEAD: Atraumatic. (units (unknown) date) Normocephalic. unknown) (unknown) (no (unknown) (unknown) HEENT: Denies sinus (unit s (unknown) date) pain, ear pain, sore unknown) throat, difficulty swallowing, (unknown) (no (unknown) (unknown) HPI - Extremity (units (unknown) date) Injury (Upper) unknown) (unknown) (no (unknown) (unknown) HPI narrative: (units (unknown) date) unknown) (unknown) (no (unknown) (unknown) History of Present (units (unknown) date) Illness unknown) (unknown) (no (unknown) (unknown) IMPRESSION:? (units (u nknown) date) unknown) (unknown) (no (unknown) (unknown) INDICATIONS:? PAIN (units (unknown) date) S/P FALL unknown) (unknown) (no (unknown) (unknown) Imaging Data (units (u nknown) date) unknown) (unknown) (no (unknown) (unknown) Initial Vital Signs (unit s (unknown) date) unknown) (unknown) (no (unknown) (unknown) Initial Vital (units ( unknown) date) Signs: unknown) (unknown) (no (unknown) (unknown) Loc: DI (units (unkno wn) date) unknown) (unknown) (no (unknown) (unknown) Austin Lund MD (unit s (unknown) date) [Primary Care unknown) Provider] - (unknown) (no (unknown) (unknown) MDM - Extremity (units (unknown) date) Injury (Upper) unknown) (unknown) (no (unknown) (unknown) MR#: [id number] (units (unknown) date) unknown) (unknown) (no (unknown) (unknown) MSK: Moves all (units (unknown) date) extremities. Did not unknown) move left shoulder due to fractured left (unknown) (no (unknown) (unknown) MSK: Denies (units (un known) date) weakness, joint unknown) pain. Endorses left upper chest/clavicle pain and (unknown) (no (unknown) (unknown) Mode of arrival: (units (unknown) date) Ambulatory unknown) (unknown) (no (unknown) (unknown) NEURO: A+O x 3. (units (unknown) date) unknown) (unknown) (no (unknown) (unknown) NEUROLOGIC: Denies (units (unknown) date) weakness, dizziness, unknown) headache, numbness, confusion. (unknown) (no (unknown) (unknown) Narrative (units (unkn own) date) unknown) (unknown) (no (unknown) (unknown) Narrative: (units (unk nown) date) unknown) (unknown) (no (unknown) (unknown) No Action (units (unkn own) date) unknown) (unknown) (no (unknown) (unknown) No Known Drug (units ( unknown) date) Allergies Allergy unknown) Verified 07/09/22 17:06 (unknown) (no (unknown) (unknown) Ordering Provider: (units (unknown) date) Austin Lund MD unknown) (unknown) (no (unknown) (unknown) Other: (units (unkno wn) date) unknown) (unknown) (no (unknown) (unknown) Oxygen Delivery (units (unknown) date) Method 07/09/22 unknown) 17:01 (unknown) (no (unknown) (unknown) Oxygen Delivery (units (unknown) date) Method Room Air unknown) (unknown) (no (unknown) (unknown) PROCEDURE:? XR (units (unknown) date) CLAVICLE LT unknown) (unknown) (no (unknown) (unknown) PSYCHIATRIC: No (units (unknown) date) concerning unknown) psychosocial issues. (unknown) (no (unknown) (unknown) Passive range of (units (unknown) date) motion is full and unknown) without pain. (unknown) (no (unknown) (unknown) Patient History (units (unknown) date) unknown) (unknown) (no (unknown) (unknown) Patient has been (units (unknown) date) applying hot and unknown) cold compresses over the last several days and (unknown) (no (unknown) (unknown) Patient: (units (unkno wn) date) Kamilla Metz N unknown) MR#: [id number] (unknown) (no (unknown) (unknown) Patient: (units (unkno wn) date) Kamilla Metz N unknown) (unknown) (no (unknown) (unknown) Positive bruising (units (unknown) date) and tenting adjacent unknown) to the fracture site. Patient was placed (unknown) (no (unknown) (unknown) Prescriptions: (units (unknown) date) unknown) (unknown) (no (unknown) (unknown) Procedure: XR (units ( unknown) date) clavicle LT unknown) (unknown) (no (unknown) (unknown) Pulse Oximetry 97 (units (unknown) date) 07/09/22 17:01 unknown) (unknown) (no (unknown) (unknown) Pulse Oximetry 97 (units (unknown) date) unknown) (unknown) (no (unknown) (unknown) Pulse Rate 83 (units ( unknown) date) 07/09/22 17:01 unknown) (unknown) (no (unknown) (unknown) Pulse Rate 83 (units ( unknown) date) unknown) (unknown) (no (unknown) (unknown) RESPIRATORY: Breath (unit s (unknown) date) sounds equal and unknown) clear bilaterally. No wheezes, rales, or (unknown) (no (unknown) (unknown) RESPIRATORY: Denies (unit s (unknown) date) dyspnea, cough, unknown) wheezing, sputum. (unknown) (no (unknown) (unknown) Range of motion of (units (unknown) date) the elbow is normal. unknown) (unknown) (no (unknown) (unknown) Referrals: (units (unk nown) date) unknown) (unknown) (no (unknown) (unknown) Related Data (units (u nknown) date) unknown) (unknown) (no (unknown) (unknown) Resistive strength (units (unknown) date) intact. unknown) (unknown) (no (unknown) (unknown) Respiratory Rate (units (unknown) date) 200 H 07/09/22 17:01 unknown) (unknown) (no (unknown) (unknown) Respiratory Rate (units (unknown) date) 200 H unknown) (unknown) (no (unknown) (unknown) Review of Systems (units (unknown) date) unknown) (unknown) (no (unknown) (unknown) Reviewed (units (unkno wn) date) unknown) (unknown) (no (unknown) (unknown) SHOULDER: (units (unkn own) date) unknown) (unknown) (no (unknown) (unknown) SKIN: Denies rash, (units (unknown) date) skin lesions, or unknown) pruritis. (unknown) (no (unknown) (unknown) SKIN: Warm, dry, no (unit s (unknown) date) rashes or lesions unknown) noted. Bruising noted adjacent to left (unknown) (no (unknown) (unknown) Segmental left (units (unknown) date) clavicle fracture. unknown) (unknown) (no (unknown) (unknown) Sensation grossly (units (unknown) date) intact. unknown) (unknown) (no (unknown) (unknown) Signed By: (units (unk nown) date) unknown) (unknown) (no (unknown) (unknown) Smoking Status: (units (unknown) date) Former smoker unknown) (unknown) (no (unknown) (unknown) Smoking Status: (units (unknown) date) Former smoker unknown) (unknown) (no (unknown) (unknown) Social History (units (unknown) date) (Reviewed 07/09/22 @ unknown) 18:59 by PERNELL Wilson) (unknown) (no (unknown) (unknown) Soft tissues:? No (units (unknown) date) suspicious soft unknown) tissue calcifications.? (unknown) (no (unknown) (unknown) Source: patient (units (unknown) date) unknown) (unknown) (no (unknown) (unknown) Stated Complaint: (units (unknown) date) lt shoulder pain unknown) (unknown) (no (unknown) (unknown) Substance Use Type: (unit s (unknown) date) does not use unknown) (unknown) (no (unknown) (unknown) TECHNIQUE:? 2 views (unit s (unknown) date) of the clavicle were unknown) acquired.? (unknown) (no (unknown) (unknown) Temperature 98.1 F (units (unknown) date) 07/09/22 17:01 unknown) (unknown) (no (unknown) (unknown) Temperature 98.1 F (units (unknown) date) unknown) (unknown) (no (unknown) (unknown) The contralateral (units (unknown) date) shoulder exam is unknown) unremarkable. (unknown) (no (unknown) (unknown) The midportion (units ( unknown) date) fracture is apex unknown) superior.? There is moderate displacement of the (unknown) (no (unknown) (unknown) There is bruising, (units (unknown) date) swelling and unknown) asymmetry. (unknown) (no (unknown) (unknown) There is no soft (units (unknown) date) tissue tenderness to unknown) palpation. (unknown) (no (unknown) (unknown) There is tenderness (unit s (unknown) date) to palpation over unknown) the AC joint, coracoid or glenoid (unknown) (no (unknown) (unknown) Time Seen by (units (u nknown) date) Provider: 07/09/22 unknown) 18:44 (unknown) (no (unknown) (unknown) Vital Signs (units (un known) date) unknown) (unknown) (no (unknown) (unknown) Vital signs: (units (u nknown) date) unknown) (unknown) (no (unknown) (unknown) [tylenol] 650 mg (units (unknown) date) PRN ##0 06/02/13 unknown) 09/09/19 (unknown) (no (unknown) (unknown) alcohol intake (units (unknown) date) frequency: 0-2 unknown) drinks per day (unknown) (no (unknown) (unknown) alprazolam 0.5 mg (units (unknown) date) tablet,extended 0.5 unknown) mg PO PRN ##0 06/02/13 09/09/19 (unknown) (no (unknown) (unknown) and with the (units (u nknown) date) exception of the unknown) fractured clavicle, all others were negative. (unknown) (no (unknown) (unknown) bruising. (units (unkn own) date) unknown) (unknown) (no (unknown) (unknown) calcium carbonate (units (unknown) date) 500 mg calcium 500 unknown) mg PO DAILY 06/10/19 09/09/19 (unknown) (no (unknown) (unknown) carvedilol 3.125 mg (unit s (unknown) date) tablet (Coreg) 3.125 unknown) mg PO QDAY ##0 06/02/13 09/09/19 (unknown) (no (unknown) (unknown) cholecalciferol (units (unknown) date) (vitamin D3) 25 unknown) 1,000 unit PO DAILY 06/10/19 09/09/19 (unknown) (no (unknown) (unknown) clavicle fracture. (units (unknown) date) Patient reports that unknown) she fell down 5 steps on , (unknown) (no (unknown) (unknown) clavicle. (units (unkn own) date) Neurovascularly unknown) intact. (unknown) (no (unknown) (unknown) constipation. (units ( unknown) date) unknown) (unknown) (no (unknown) (unknown) cyanocobalamin (units (unknown) date) (vitamin B-12) 1,000 unknown) mcg PO DAILY 06/10/19 09/09/19 (unknown) (no (unknown) (unknown) did not come in to (units (unknown) date) the hospital until unknown) she was reprimanded by her daughter. (unknown) (no (unknown) (unknown) dizziness. (units (unk nown) date) unknown) (unknown) (no (unknown) (unknown) flank pain. (units (un known) date) unknown) (unknown) (no (unknown) (unknown) fracture.? The (units (unknown) date) acromioclavicular unknown) joint is not widened.? No suspicious bony (unknown) (no (unknown) (unknown) fractured clavicle. (unit s (unknown) date) unknown) (unknown) (no (unknown) (unknown) in a sling which (units (unknown) date) slightly improved unknown) the pain. (unknown) (no (unknown) (unknown) intact, cap refill (units (unknown) date) <2 sec. unknown) (unknown) (no (unknown) (unknown) lesions.? (units (unkn own) date) unknown) (unknown) (no (unknown) (unknown) letrozole 2.5 mg (units (unknown) date) tablet (Femara) 2.5 unknown) mg PO QDAY breast cancer #90 09/09/19 (unknown) (no (unknown) (unknown) lisinopril 2.5 mg (units (unknown) date) tablet 2.5 mg PO unknown) QDAY ##0 06/02/13 09/09/19 (unknown) (no (unknown) (unknown) mcg (1,000 unit) (units (unknown) date) tablet (Vitamin unknown) (unknown) (no (unknown) (unknown) or any loss of (units (unknown) date) consciousness. unknown) Patient's family doctor ordered multiple x-rays (unknown) (no (unknown) (unknown) portions.? (units (unk nown) date) unknown) (unknown) (no (unknown) (unknown) processes. (units (unk nown) date) unknown) (unknown) (no (unknown) (unknown) release 24 hr (units ( unknown) date) (Effexor XR) unknown) (unknown) (no (unknown) (unknown) release 24 hr (units ( unknown) date) (Xanax XR) unknown) (unknown) (no (unknown) (unknown) rhonchi. No cough. (units (unknown) date) No increased unknown) respiratory effort. No accessory muscle use. (unknown) (no (unknown) (unknown) venlafaxine 75 mg (units (unknown) date) capsule,extended 75 unknown) mg PO QDAY ##0 06/02/13 09/09/19 (unknown) (no (unknown) (unknown) zinc 50 mg tablet (units (unknown) date) 50 mg PO DAILY unknown) 06/10/19 09/09/19 (unknown) (no (unknown) (unknown) zolpidem 10 mg (units (unknown) date) tablet (Ambien) 10 unknown) mg PO HS ##0 06/02/13 09/09/19 Result panel 4 (unknown) (no (unknown) (unknown) (no value) (units (unk nown) date) unknown) (unknown) (no (unknown) (unknown) Radiologist's (units ( unknown) date) Impression: unknown) (unknown) (no (unknown) (unknown) (no value) (units (unk nown) date) unknown) (unknown) (no (unknown) (unknown) *Please continue to (unit s (unknown) date) take your regular unknown) medications as directed. (unknown) (no (unknown) (unknown) Date of Service: (units (unknown) date) 07/09/22 unknown) (unknown) (no (unknown) (unknown) (no value) (units (unk nown) date) unknown) (unknown) (no (unknown) (unknown) <Electronically (units (unknown) date) signed by Perry lawson) PERNELL Gonzalez> (unknown) (no (unknown) (unknown) 0.5 mg PO PRN Qty: (units (unknown) date) 0 unknown) (unknown) (no (unknown) (unknown) 07/09/22 1930 (units ( unknown) date) unknown) (unknown) (no (unknown) (unknown) 1,000 mcg PO DAILY (units (unknown) date) unknown) (unknown) (no (unknown) (unknown) 1,000 unit PO DAILY (unit s (unknown) date) unknown) (unknown) (no (unknown) (unknown) 10 mg PO HS Qty: 0 (units (unknown) date) unknown) (unknown) (no (unknown) (unknown) [address] [place] [address] (units (unknown) date) unknown) (unknown) (no (unknown) (unknown) 2.5 mg PO QDAY Qty: (unit s (unknown) date) 0 unknown) (unknown) (no (unknown) (unknown) 2.5 mg PO QDAY Qty: (unit s (unknown) date) 90 1RF unknown) (unknown) (no (unknown) (unknown) 3.125 mg PO QDAY (units (unknown) date) Qty: 0 unknown) (unknown) (no (unknown) (unknown) 50 mg PO DAILY (units (unknown) date) unknown) (unknown) (no (unknown) (unknown) 500 mg PO DAILY (units (unknown) date) unknown) (unknown) (no (unknown) (unknown) 650 mg PRN Qty: 0 (units (unknown) date) unknown) (unknown) (no (unknown) (unknown) 75 mg PO QDAY Qty: (units (unknown) date) 0 unknown) (unknown) (no (unknown) (unknown) Allergies (units (unkn own) date) unknown) (unknown) (no (unknown) (unknown) [facility]ORE[facility] Sau[facility]o [address] (unit s (unknown) date) unknown) (unknown) (no (unknown) (unknown) Emergency Report (units (unknown) date) unknown) (unknown) (no (unknown) (unknown) Home Medications (units (unknown) date) unknown) (unknown) (no (unknown) (unknown) [facility] (units (unknown) date) unknown) (unknown) (no (unknown) (unknown) [facility] (units (unknown) date) [address] unknown) [place] [address] (unknown) (no (unknown) (unknown) Label Comments: (units (unknown) date) unknown) (unknown) (no (unknown) (unknown) Last Admin: (units (un known) date) 07/09/22 19:03 Dose: unknown) 1 tab (unknown) (no (unknown) (unknown) PT TO VERIFY DOSE (units (unknown) date) unknown) (unknown) (no (unknown) (unknown) Previous Rx's (units ( unknown) date) unknown) (unknown) (no (unknown) (unknown) Signed (units (unkno wn) date) unknown) (unknown) (no (unknown) (unknown) Stop: 07/09/22 (units (unknown) date) 18:55 unknown) (unknown) (no (unknown) (unknown) Vital Signs - 8 hr (units (unknown) date) unknown) (unknown) (no (unknown) (unknown) XRay Report (units (un known) date) unknown) (unknown) (no (unknown) (unknown) [ ] New medication (units (unknown) date) prescriptions sent unknown) to your pharmacy: [ ] (unknown) (no (unknown) (unknown) [ ] New medication (units (unknown) date) written as a paper unknown) prescription (unknown) (no (unknown) (unknown) [x ] No new (units (un known) date) medications given unknown) (unknown) (no (unknown) (unknown) (no value) (units (unk nown) date) unknown) (unknown) (no (unknown) (unknown) [tylenol] (units (unkn own) date) unknown) (unknown) (no (unknown) (unknown) alprazolam [Xanax (units (unknown) date) XR] 0.5 MG tablet unknown) extended release 24 hr (unknown) (no (unknown) (unknown) calcium carbonate (units (unknown) date) [Calcium 500] 500 mg unknown) calcium (1,250 mg) Tablet (unknown) (no (unknown) (unknown) carvedilol [Coreg] (units (unknown) date) 3.125 MG tablet unknown) (unknown) (no (unknown) (unknown) cholecalciferol (units (unknown) date) (vitamin D3) unknown) [Vitamin D3] 1,000 unit Tablet (unknown) (no (unknown) (unknown) cyanocobalamin (units (unknown) date) (vitamin B-12) unknown) [Vitamin B-12] 1,000 mcg Tablet (unknown) (no (unknown) (unknown) letrozole [Femara] (units (unknown) date) 2.5 MG tablet unknown) (unknown) (no (unknown) (unknown) lisinopril 2.5 MG (units (unknown) date) tablet unknown) (unknown) (no (unknown) (unknown) venlafaxine (units (un known) date) [Effexor XR] 75 MG unknown) capsule,extended release 24hr (unknown) (no (unknown) (unknown) zinc 50 mg Tablet (units (unknown) date) unknown) (unknown) (no (unknown) (unknown) zolpidem [Ambien] (units (unknown) date) 10 MG tablet unknown) (unknown) (no (unknown) (unknown) 07/09/22 (units (unkno wn) date) unknown) (unknown) (no (unknown) (unknown) Fracture of (units (un known) date) clavicle unknown) (unknown) (no (unknown) (unknown) Medication (units (unk nown) date) Instructions unknown) Recorded (unknown) (no (unknown) (unknown) Medication (units (unk nown) date) Instructions unknown) Recorded Confirmed (unknown) (no (unknown) (unknown) distal (units (unkno wn) date) unknown) (unknown) (no (unknown) (unknown) in for evaluation (units (unknown) date) this week. For any unknown) worsening symptoms that include (unknown) (no (unknown) (unknown) needed. Please call (unit s (unknown) date) the orthopedic unknown) clinic tomorrow morning so they can get you (unknown) (no (unknown) (unknown) tabs (units (unkno wn) date) unknown) (unknown) (no (unknown) (unknown) (1,250 mg) tablet (units (unknown) date) (Calcium 500) unknown) (unknown) (no (unknown) (unknown) *If you do not have (unit s (unknown) date) a primary care unknown) provider please contact the [facility] (unknown) (no (unknown) (unknown) *Please follow up (units (unknown) date) with your primary unknown) care provider in 2-3 days, call for an (unknown) (no (unknown) (unknown) *What to do: (units (u nknown) date) unknown) (unknown) (no (unknown) (unknown) *You have been (units (unknown) date) diagnosed with left unknown) clavicle fracture. We have placed you in a (unknown) (no (unknown) (unknown) [id number] (units (unkno wn) date) unknown) (unknown) (no (unknown) (unknown) 1,000 mcg tablet (units (unknown) date) (Vitamin B-12) unknown) (unknown) (no (unknown) (unknown) 17:01 (units (unkno wn) date) unknown) (unknown) (no (unknown) (unknown) 71-year-old female (units (unknown) date) that presents to the unknown) emergency department with a left (unknown) (no (unknown) (unknown) 71-year-old female, (unit s (unknown) date) former smoker, unknown) presents emergency department with left (unknown) (no (unknown) (unknown) ? (units (unkno wn) date) unknown) (unknown) (no (unknown) (unknown) ? Return to ER if (units (unknown) date) you should have any unknown) new, worsening or concerning symptoms, (unknown) (no (unknown) (unknown) Accession Number: (units (unknown) date) [id number] ?? unknown) (unknown) (no (unknown) (unknown) Acct:[id number] (units (unknown) date) unknown) (unknown) (no (unknown) (unknown) Activity (units (unkno wn) date) Restrictions/Additio unknown) nal Instructions: (unknown) (no (unknown) (unknown) Age/Sex: 71 / F (units (unknown) date) unknown) (unknown) (no (unknown) (unknown) Age/Sex: 71 / F (units (unknown) date) unknown) (unknown) (no (unknown) (unknown) Allergy/AdvReac (units (unknown) date) Type Severity unknown) Reaction Status Date / Time (unknown) (no (unknown) (unknown) Approved by: Rajendra (units (unknown) date) Zhao Ascencio on unknown) 07/09/2022 at 17:07 ? (unknown) (no (unknown) (unknown) July 04, due to (unit s (unknown) date) her right knee unknown) giving way. Patient denies hitting her head (unknown) (no (unknown) (unknown) Blood Pressure (units (unknown) date) 146/96 H 07/09/22 unknown) 17:01 (unknown) (no (unknown) (unknown) Blood Pressure (units (unknown) date) 146/96 H unknown) (unknown) (no (unknown) (unknown) Bones:? Segmental (units (unknown) date) left clavicle unknown) fracture with fractures at the mid and distal (unknown) (no (unknown) (unknown) CARDIOVASCULAR: (units (unknown) date) Denies palpitations, unknown) edema. (unknown) (no (unknown) (unknown) CARDIOVASCULAR: (units (unknown) date) Regular rate and unknown) rhythm without murmurs, peripheral pulses (unknown) (no (unknown) (unknown) COMPARISON:? None. (units (unknown) date) unknown) (unknown) (no (unknown) (unknown) Chief Complaint: (units (unknown) date) Extremity Injury, unknown) Upper (unknown) (no (unknown) (unknown) Clinical (units (unkno wn) date) Impression: unknown) (unknown) (no (unknown) (unknown) Consultation #1: (units (unknown) date) unknown) (unknown) (no (unknown) (unknown) Consultations (units ( unknown) date) unknown) (unknown) (no (unknown) (unknown) Course (units (unkno wn) date) unknown) (unknown) (no (unknown) (unknown) D3) (units (unkno wn) date) unknown) (unknown) (no (unknown) (unknown) : 1950 (units (unknown) date) Acct:[id number] unknown) (unknown) (no (unknown) (unknown) : 1950 (units (unknown) date) unknown) (unknown) (no (unknown) (unknown) Date of Service: (units (unknown) date) 07/09/22 unknown) (unknown) (no (unknown) (unknown) Departure (units (unkn own) date) unknown) (unknown) (no (unknown) (unknown) Dictated by: Rajendra (units (unknown) date) Zhao Ascencio on unknown) 07/09/2022 at 17:02 ? ? (unknown) (no (unknown) (unknown) Differential (units (u nknown) date) Diagnosis unknown) (unknown) (no (unknown) (unknown) Differential (units (u nknown) date) diagnosis: Likely unknown) fracture of clavicle (unknown) (no (unknown) (unknown) Discharge Plan (units (unknown) date) unknown) (unknown) (no (unknown) (unknown) Discontinued (units (u nknown) date) Medications unknown) (unknown) (no (unknown) (unknown) Dr. Alex, (units (unk nown) date) orthopedics. unknown) Recommended patient be placed in a splint and have her (unknown) (no (unknown) (unknown) ER Physician: (units ( unknown) date) Perry Gonzalez unknown) (unknown) (no (unknown) (unknown) Exam (units (unkno wn) date) unknown) (unknown) (no (unknown) (unknown) Exam Narrative: (units (unknown) date) unknown) (unknown) (no (unknown) (unknown) Extrem (units (unkno wn) date) unknown) (unknown) (no (unknown) (unknown) Extremity x-ray #1: (unit s (unknown) date) unknown) (unknown) (no (unknown) (unknown) FINDINGS:? (units (unk nown) date) unknown) (unknown) (no (unknown) (unknown) GASTROINTESTINAL: (units (unknown) date) Denies nausea, unknown) vomiting, abdominal pain, diarrhea, (unknown) (no (unknown) (unknown) GENERAL: Denies (units (unknown) date) chills, fatigue, unknown) fever, sweats. See HPI (unknown) (no (unknown) (unknown) GENERAL: This is a (units (unknown) date) well-nourished, unknown) well-developed patient, in no acute distress (unknown) (no (unknown) (unknown) : Denies dysuria, (unit s (unknown) date) frequency, unknown) incontinence, hematuria, urinary retention, (unknown) (no (unknown) (unknown) General (units (unkno wn) date) unknown) (unknown) (no (unknown) (unknown) HEAD: Atraumatic. (units (unknown) date) Normocephalic. unknown) (unknown) (no (unknown) (unknown) HEENT: Denies sinus (unit s (unknown) date) pain, ear pain, sore unknown) throat, difficulty swallowing, (unknown) (no (unknown) (unknown) HPI - Extremity (units (unknown) date) Injury (Upper) unknown) (unknown) (no (unknown) (unknown) HPI narrative: (units (unknown) date) unknown) (unknown) (no (unknown) (unknown) History of Present (units (unknown) date) Illness unknown) (unknown) (no (unknown) (unknown) IMPRESSION:? (units (u nknown) date) unknown) (unknown) (no (unknown) (unknown) INDICATIONS:? PAIN (units (unknown) date) S/P FALL unknown) (unknown) (no (unknown) (unknown) Imaging Data (units (u nknown) date) unknown) (unknown) (no (unknown) (unknown) Initial Vital Signs (unit s (unknown) date) unknown) (unknown) (no (unknown) (unknown) Initial Vital (units ( unknown) date) Signs: unknown) (unknown) (no (unknown) (unknown) Instructions: DI (units (unknown) date) for Clavicle unknown) Fracture-Adult (unknown) (no (unknown) (unknown) Loc: DI (units (unkno wn) date) unknown) (unknown) (no (unknown) (unknown) Austin Lund MD (unit s (unknown) date) [Primary Care unknown) Provider] - (unknown) (no (unknown) (unknown) MDM - Extremity (units (unknown) date) Injury (Upper) unknown) (unknown) (no (unknown) (unknown) MDM Narrative (units ( unknown) date) unknown) (unknown) (no (unknown) (unknown) MR#: [id number] (units (unknown) date) unknown) (unknown) (no (unknown) (unknown) MSK: Moves all (units (unknown) date) extremities. Did not unknown) move left shoulder due to fractured left (unknown) (no (unknown) (unknown) MSK: Denies (units (un known) date) weakness, joint unknown) pain. Endorses left upper chest/clavicle pain and (unknown) (no (unknown) (unknown) Medical decision (units (unknown) date) making narrative: unknown) (unknown) (no (unknown) (unknown) Mode of arrival: (units (unknown) date) Ambulatory unknown) (unknown) (no (unknown) (unknown) NEURO: A+O x 3. (units (unknown) date) unknown) (unknown) (no (unknown) (unknown) NEUROLOGIC: Denies (units (unknown) date) weakness, dizziness, unknown) headache, numbness, confusion. (unknown) (no (unknown) (unknown) Narrative (units (unkn own) date) unknown) (unknown) (no (unknown) (unknown) Narrative: (units (unk nown) date) unknown) (unknown) (no (unknown) (unknown) No Action (units (unkn own) date) unknown) (unknown) (no (unknown) (unknown) No Known Drug (units ( unknown) date) Allergies Allergy unknown) Verified 07/09/22 17:06 (unknown) (no (unknown) (unknown) Kulwinder Alex MD (unit s (unknown) date) [Physician] - unknown) (unknown) (no (unknown) (unknown) Ordered: (units (unkno wn) date) unknown) (unknown) (no (unknown) (unknown) Ordering Provider: (units (unknown) date) Austin Lund MD unknown) (unknown) (no (unknown) (unknown) Orders (units (unkno wn) date) unknown) (unknown) (no (unknown) (unknown) Orthopedics, who (units (unknown) date) recommended patient unknown) be placed in a splint and have her follow- (unknown) (no (unknown) (unknown) Other: (units (unkno wn) date) unknown) (unknown) (no (unknown) (unknown) Oxycodone/Acetaminop (unit s (unknown) date) hen unknown) (Oxycodone/Acetamino phen 5/325 Tablet) 1 tab PO NOW ONE (unknown) (no (unknown) (unknown) Oxygen Delivery (units (unknown) date) Method 07/09/22 unknown) 17:01 (unknown) (no (unknown) (unknown) Oxygen Delivery (units (unknown) date) Method Room Air unknown) (unknown) (no (unknown) (unknown) PROCEDURE:? XR (units (unknown) date) CLAVICLE LT unknown) (unknown) (no (unknown) (unknown) PSYCHIATRIC: No (units (unknown) date) concerning unknown) psychosocial issues. (unknown) (no (unknown) (unknown) Passive and active (units (unknown) date) range of motion is unknown) limited due to pain. (unknown) (no (unknown) (unknown) Patient (units (unkno wn) date) Disposition: Home unknown) (unknown) (no (unknown) (unknown) Patient History (units (unknown) date) unknown) (unknown) (no (unknown) (unknown) Patient has been (units (unknown) date) applying hot and unknown) cold compresses over the last several days and (unknown) (no (unknown) (unknown) Patient: (units (unkno wn) date) Sabrina Metzn N unknown) MR#: [id number] (unknown) (no (unknown) (unknown) Patient: (units (unkno wn) date) Sabrina Metzn N unknown) (unknown) (no (unknown) (unknown) Positive bruising (units (unknown) date) and tenting adjacent unknown) to the fracture site. Patient was placed (unknown) (no (unknown) (unknown) Positive bruising, (units (unknown) date) asymmetry and unknown) tenting adjacent to the fracture. Contacted (unknown) (no (unknown) (unknown) Prescriptions: (units (unknown) date) unknown) (unknown) (no (unknown) (unknown) Procedure: XR (units ( unknown) date) clavicle LT unknown) (unknown) (no (unknown) (unknown) Pulse Oximetry 97 (units (unknown) date) 07/09/22 17:01 unknown) (unknown) (no (unknown) (unknown) Pulse Oximetry 97 (units (unknown) date) unknown) (unknown) (no (unknown) (unknown) Pulse Rate 83 (units ( unknown) date) 07/09/22 17:01 unknown) (unknown) (no (unknown) (unknown) Pulse Rate 83 (units ( unknown) date) unknown) (unknown) (no (unknown) (unknown) RESPIRATORY: Breath (unit s (unknown) date) sounds equal and unknown) clear bilaterally. No wheezes, rales, or (unknown) (no (unknown) (unknown) RESPIRATORY: Denies (unit s (unknown) date) dyspnea, cough, unknown) wheezing, sputum. (unknown) (no (unknown) (unknown) Range of motion of (units (unknown) date) the elbow is normal. unknown) (unknown) (no (unknown) (unknown) Referrals: (units (unk nown) date) unknown) (unknown) (no (unknown) (unknown) Related Data (units (u nknown) date) unknown) (unknown) (no (unknown) (unknown) Resistive strength (units (unknown) date) intact. unknown) (unknown) (no (unknown) (unknown) Resource line at (units (unknown) date) [phone]. They unknown) will ask some questions about your medical (unknown) (no (unknown) (unknown) Respiratory Rate (units (unknown) date) 200 H 07/09/22 17:01 unknown) (unknown) (no (unknown) (unknown) Respiratory Rate (units (unknown) date) 200 H unknown) (unknown) (no (unknown) (unknown) Review of Systems (units (unknown) date) unknown) (unknown) (no (unknown) (unknown) Reviewed (units (unkno wn) date) unknown) (unknown) (no (unknown) (unknown) SHOULDER: (units (unkn own) date) unknown) (unknown) (no (unknown) (unknown) SKIN: Denies rash, (units (unknown) date) skin lesions, or unknown) pruritis. (unknown) (no (unknown) (unknown) SKIN: Warm, dry, no (unit s (unknown) date) rashes or lesions unknown) noted. Bruising noted adjacent to left (unknown) (no (unknown) (unknown) Segmental left (units (unknown) date) clavicle fracture. unknown) (unknown) (no (unknown) (unknown) Sensation grossly (units (unknown) date) intact. unknown) (unknown) (no (unknown) (unknown) Signed By: (units (unk nown) date) unknown) (unknown) (no (unknown) (unknown) Smoking Status: (units (unknown) date) Former smoker unknown) (unknown) (no (unknown) (unknown) Smoking Status: (units (unknown) date) Former smoker unknown) (unknown) (no (unknown) (unknown) Social History (units (unknown) date) (Reviewed 07/09/22 @ unknown) 18:59 by PERNELL Wilson) (unknown) (no (unknown) (unknown) Soft tissues:? No (units (unknown) date) suspicious soft unknown) tissue calcifications.? (unknown) (no (unknown) (unknown) Source: patient (units (unknown) date) unknown) (unknown) (no (unknown) (unknown) Stated Complaint: (units (unknown) date) lt shoulder pain unknown) (unknown) (no (unknown) (unknown) Substance Use Type: (unit s (unknown) date) does not use unknown) (unknown) (no (unknown) (unknown) TECHNIQUE:? 2 views (unit s (unknown) date) of the clavicle were unknown) acquired.? (unknown) (no (unknown) (unknown) Temperature 98.1 F (units (unknown) date) 07/09/22 17:01 unknown) (unknown) (no (unknown) (unknown) Temperature 98.1 F (units (unknown) date) unknown) (unknown) (no (unknown) (unknown) The contralateral (units (unknown) date) shoulder exam is unknown) unremarkable. (unknown) (no (unknown) (unknown) The midportion (units ( unknown) date) fracture is apex unknown) superior.? There is moderate displacement of the (unknown) (no (unknown) (unknown) There is bruising, (units (unknown) date) swelling and unknown) asymmetry. (unknown) (no (unknown) (unknown) There is no soft (units (unknown) date) tissue tenderness to unknown) palpation. (unknown) (no (unknown) (unknown) There is tenderness (unit s (unknown) date) to palpation over unknown) the AC joint.. (unknown) (no (unknown) (unknown) Time Seen by (units (u nknown) date) Provider: 07/09/22 unknown) 18:44 (unknown) (no (unknown) (unknown) Vital Signs (units (un known) date) unknown) (unknown) (no (unknown) (unknown) Vital signs: (units (u nknown) date) unknown) (unknown) (no (unknown) (unknown) [tylenol] 650 mg (units (unknown) date) PRN ##0 06/02/13 unknown) 09/09/19 (unknown) (no (unknown) (unknown) alcohol intake (units (unknown) date) frequency: 0-2 unknown) drinks per day (unknown) (no (unknown) (unknown) alprazolam 0.5 mg (units (unknown) date) tablet,extended 0.5 unknown) mg PO PRN ##0 06/02/13 09/09/19 (unknown) (no (unknown) (unknown) and with the (units (u nknown) date) exception of the unknown) fractured clavicle, all others were negative. (unknown) (no (unknown) (unknown) appointment. Let (units (unknown) date) them know you were unknown) seen in the Emergency Department and that we (unknown) (no (unknown) (unknown) ask that you be (units (unknown) date) seen in follow up. unknown) We will electronically transmit a record of (unknown) (no (unknown) (unknown) breathing, fever (units (unknown) date) greater than 101 F, unknown) shaking chills, persistent vomiting to the (unknown) (no (unknown) (unknown) bruising. (units (unkn own) date) unknown) (unknown) (no (unknown) (unknown) calcium carbonate (units (unknown) date) 500 mg calcium 500 unknown) mg PO DAILY 06/10/19 09/09/19 (unknown) (no (unknown) (unknown) carvedilol 3.125 mg (unit s (unknown) date) tablet (Coreg) 3.125 unknown) mg PO QDAY ##0 06/02/13 09/09/19 (unknown) (no (unknown) (unknown) cholecalciferol (units (unknown) date) (vitamin D3) 25 unknown) 1,000 unit PO DAILY 06/10/19 09/09/19 (unknown) (no (unknown) (unknown) clavicle fracture. (units (unknown) date) Patient fell this unknown) down 5 stairs approximately 6 days ago. (unknown) (no (unknown) (unknown) clavicle fracture. (units (unknown) date) Patient reports that unknown) she fell down 5 steps on , (unknown) (no (unknown) (unknown) clavicle. (units (unkn own) date) Neurovascularly unknown) intact. (unknown) (no (unknown) (unknown) cold compresses to (units (unknown) date) the affected site in unknown) use your [id number] medications as (unknown) (no (unknown) (unknown) constipation. (units ( unknown) date) unknown) (unknown) (no (unknown) (unknown) cyanocobalamin (units (unknown) date) (vitamin B-12) 1,000 unknown) mcg PO DAILY 06/10/19 09/09/19 (unknown) (no (unknown) (unknown) did not come in to (units (unknown) date) the hospital until unknown) she was reprimanded by her daughter. (unknown) (no (unknown) (unknown) dizziness. (units (unk nown) date) unknown) (unknown) (no (unknown) (unknown) family doctor as (units (unknown) date) needed. unknown) (unknown) (no (unknown) (unknown) flank pain. (units (un known) date) unknown) (unknown) (no (unknown) (unknown) follow-up with (units (unknown) date) orthopedic clinic in unknown) the morning. (unknown) (no (unknown) (unknown) fracture.? The (units (unknown) date) acromioclavicular unknown) joint is not widened.? No suspicious bony (unknown) (no (unknown) (unknown) fractured clavicle. (unit s (unknown) date) unknown) (unknown) (no (unknown) (unknown) history and help (units (unknown) date) get you set up with unknown) a doctor in the community. (unknown) (no (unknown) (unknown) in a sling which (units (unknown) date) slightly improved unknown) the pain. (unknown) (no (unknown) (unknown) intact, cap refill (units (unknown) date) <2 sec. unknown) (unknown) (no (unknown) (unknown) into the emergency (units (unknown) date) room immediately. unknown) Otherwise, please follow-up with your (unknown) (no (unknown) (unknown) intolerable pain, (units (unknown) date) difficulty unknown) breathing, chest pain, etc. please call 911 or get (unknown) (no (unknown) (unknown) lesions.? (units (unkn own) date) unknown) (unknown) (no (unknown) (unknown) letrozole 2.5 mg (units (unknown) date) tablet (Femara) 2.5 unknown) mg PO QDAY breast cancer #90 09/09/19 (unknown) (no (unknown) (unknown) lisinopril 2.5 mg (units (unknown) date) tablet 2.5 mg PO unknown) QDAY ##0 06/02/13 09/09/19 (unknown) (no (unknown) (unknown) mcg (1,000 unit) (units (unknown) date) tablet (Vitamin unknown) (unknown) (no (unknown) (unknown) medications. (units (u nknown) date) Discussed plan of unknown) care and return precautions with patient, who (unknown) (no (unknown) (unknown) or any loss of (units (unknown) date) consciousness. unknown) Patient's family doctor ordered multiple x-rays (unknown) (no (unknown) (unknown) point that you (units (unknown) date) cannot drink fluids, unknown) or other new or worsening symptoms. (unknown) (no (unknown) (unknown) portions.? (units (unk nown) date) unknown) (unknown) (no (unknown) (unknown) release 24 hr (units ( unknown) date) (Effexor XR) unknown) (unknown) (no (unknown) (unknown) release 24 hr (units ( unknown) date) (Xanax XR) unknown) (unknown) (no (unknown) (unknown) reports he is able (units (unknown) date) to control her pain unknown) at home with [id number]-rypymno (unknown) (no (unknown) (unknown) rhonchi. No cough. (units (unknown) date) No increased unknown) respiratory effort. No accessory muscle use. (unknown) (no (unknown) (unknown) splint that should (units (unknown) date) help with your unknown) discomfort. You may continue to apply hot or (unknown) (no (unknown) (unknown) such as worsening (units (unknown) date) pain, severe unknown) headache, confusion, chest pain, difficulty (unknown) (no (unknown) (unknown) today's note if (units (unknown) date) your PCP is in our unknown) system (unknown) (no (unknown) (unknown) up with orthopedics (unit s (unknown) date) in the morning. unknown) Percocet given in the ED, but patient (unknown) (no (unknown) (unknown) venlafaxine 75 mg (units (unknown) date) capsule,extended 75 unknown) mg PO QDAY ##0 06/02/13 09/09/19 (unknown) (no (unknown) (unknown) was agreeable with (units (unknown) date) course of action. unknown) (unknown) (no (unknown) (unknown) zinc 50 mg tablet (units (unknown) date) 50 mg PO DAILY unknown) 06/10/19 09/09/19 (unknown) (no (unknown) (unknown) zolpidem 10 mg (units (unknown) date) tablet (Ambien) 10 unknown) mg PO HS ##0 06/02/13 09/09/19 Result panel 5 (unknown) (no (unknown) (unknown) (no value) (units (unk nown) date) unknown) (unknown) (no (unknown) (unknown) Radiologist's (units ( unknown) date) Impression: unknown) (unknown) (no (unknown) (unknown) *Please continue to (unit s (unknown) date) take your regular unknown) medications as directed. (unknown) (no (unknown) (unknown) Date of Service: (units (unknown) date) 07/09/22 unknown) (unknown) (no (unknown) (unknown) (no value) (units (unk nown) date) unknown) (unknown) (no (unknown) (unknown) <Electronically (units (unknown) date) signed by Perry unknown) PERNELL Gonzalez> (unknown) (no (unknown) (unknown) <Electronically (units (unknown) date) signed by Skye Calvin unknown) Lauri ROTH> (unknown) (no (unknown) (unknown) <Electronically (units (unknown) date) signed by Skye Calvin unknown) MD Lauri> (unknown) (no (unknown) (unknown) 0.5 mg PO PRN Qty: (units (unknown) date) 0 unknown) (unknown) (no (unknown) (unknown) 07/09/22 1930 (units ( unknown) date) unknown) (unknown) (no (unknown) (unknown) 07/10/22 0759 (units ( unknown) date) unknown) (unknown) (no (unknown) (unknown) 1,000 mcg PO DAILY (units (unknown) date) unknown) (unknown) (no (unknown) (unknown) 1,000 unit PO DAILY (unit s (unknown) date) unknown) (unknown) (no (unknown) (unknown) 10 mg PO HS Qty: 0 (units (unknown) date) unknown) (unknown) (no (unknown) (unknown) [address] [place] [address] (units (unknown) date) unknown) (unknown) (no (unknown) (unknown) 2.5 mg PO QDAY Qty: (unit s (unknown) date) 0 unknown) (unknown) (no (unknown) (unknown) 2.5 mg PO QDAY Qty: (unit s (unknown) date) 90 1RF unknown) (unknown) (no (unknown) (unknown) 3.125 mg PO QDAY (units (unknown) date) Qty: 0 unknown) (unknown) (no (unknown) (unknown) 50 mg PO DAILY (units (unknown) date) unknown) (unknown) (no (unknown) (unknown) 500 mg PO DAILY (units (unknown) date) unknown) (unknown) (no (unknown) (unknown) 650 mg PRN Qty: 0 (units (unknown) date) unknown) (unknown) (no (unknown) (unknown) 75 mg PO QDAY Qty: (units (unknown) date) 0 unknown) (unknown) (no (unknown) (unknown) Allergies (units (unkn own) date) unknown) (unknown) (no (unknown) (unknown) KOREY Saucedo [id number] (unit s (unknown) date) unknown) (unknown) (no (unknown) (unknown) Documented By: FILI (units (unknown) date) unknown) (unknown) (no (unknown) (unknown) Emergency Report (units (unknown) date) unknown) (unknown) (no (unknown) (unknown) Home Medications (units (unknown) date) unknown) (unknown) (no (unknown) (unknown) [facility] (units (unknown) date) unknown) (unknown) (no (unknown) (unknown) [facility] (units (unknown) date) [address] [place] [address] unknown) KOREY Saucedo [id number] (unknown) (no (unknown) (unknown) Label Comments: (units (unknown) date) unknown) (unknown) (no (unknown) (unknown) Last Admin: (units (un known) date) 07/09/22 19:03 Dose: unknown) 1 tab (unknown) (no (unknown) (unknown) PT TO VERIFY DOSE (units (unknown) date) unknown) (unknown) (no (unknown) (unknown) Previous Rx's (units ( unknown) date) unknown) (unknown) (no (unknown) (unknown) Signed (units (unkno wn) date) unknown) (unknown) (no (unknown) (unknown) Stop: 07/09/22 (units (unknown) date) 18:55 unknown) (unknown) (no (unknown) (unknown) Vital Signs - 8 hr (units (unknown) date) unknown) (unknown) (no (unknown) (unknown) XRay Report (units (un known) date) unknown) (unknown) (no (unknown) (unknown) [ ] New medication (units (unknown) date) prescriptions sent unknown) to your pharmacy: [ ] (unknown) (no (unknown) (unknown) [ ] New medication (units (unknown) date) written as a paper unknown) prescription (unknown) (no (unknown) (unknown) [x ] No new (units (un known) date) medications given unknown) (unknown) (no (unknown) (unknown) (no value) (units (unk nown) date) unknown) (unknown) (no (unknown) (unknown) [tylenol] (units (unkn own) date) unknown) (unknown) (no (unknown) (unknown) alprazolam [Xanax (units (unknown) date) XR] 0.5 MG tablet unknown) extended release 24 hr (unknown) (no (unknown) (unknown) calcium carbonate (units (unknown) date) [Calcium 500] 500 mg unknown) calcium (1,250 mg) Tablet (unknown) (no (unknown) (unknown) carvedilol [Coreg] (units (unknown) date) 3.125 MG tablet unknown) (unknown) (no (unknown) (unknown) cholecalciferol (units (unknown) date) (vitamin D3) unknown) [Vitamin D3] 1,000 unit Tablet (unknown) (no (unknown) (unknown) cyanocobalamin (units (unknown) date) (vitamin B-12) unknown) [Vitamin B-12] 1,000 mcg Tablet (unknown) (no (unknown) (unknown) letrozole [Femara] (units (unknown) date) 2.5 MG tablet unknown) (unknown) (no (unknown) (unknown) lisinopril 2.5 MG (units (unknown) date) tablet unknown) (unknown) (no (unknown) (unknown) venlafaxine (units (un known) date) [Effexor XR] 75 MG unknown) capsule,extended release 24hr (unknown) (no (unknown) (unknown) zinc 50 mg Tablet (units (unknown) date) unknown) (unknown) (no (unknown) (unknown) zolpidem [Ambien] (units (unknown) date) 10 MG tablet unknown) (unknown) (no (unknown) (unknown) 07/09/22 (units (unkno wn) date) unknown) (unknown) (no (unknown) (unknown) Fracture of (units (un known) date) clavicle unknown) (unknown) (no (unknown) (unknown) Medication (units (unk nown) date) Instructions unknown) Recorded (unknown) (no (unknown) (unknown) Medication (units (unk nown) date) Instructions unknown) Recorded Confirmed (unknown) (no (unknown) (unknown) distal (units (unkno wn) date) unknown) (unknown) (no (unknown) (unknown) in for evaluation (units (unknown) date) this week. For any unknown) worsening symptoms that include (unknown) (no (unknown) (unknown) needed. Please call (unit s (unknown) date) the orthopedic unknown) clinic tomorrow morning so they can get you (unknown) (no (unknown) (unknown) tabs (units (unkno wn) date) unknown) (unknown) (no (unknown) (unknown) <Perry Gonzalez, (units (unknown) date) [facility] - Last Filed: unknown) 07/09/22 19:30> (unknown) (no (unknown) (unknown) <Skye Carreon, (units (unknown) date) - Last Filed: unknown) 07/10/22 07:59> (unknown) (no (unknown) (unknown) <peggyigner> (units (unk nown) date) unknown) (unknown) (no (unknown) (unknown) (1,250 mg) tablet (units (unknown) date) (Calcium 500) unknown) (unknown) (no (unknown) (unknown) *If you do not have (unit s (unknown) date) a primary care unknown) provider please contact the [facility] (unknown) (no (unknown) (unknown) *Please follow up (units (unknown) date) with your primary unknown) care provider in 2-3 days, call for an (unknown) (no (unknown) (unknown) *What to do: (units (u nknown) date) unknown) (unknown) (no (unknown) (unknown) *You have been (units (unknown) date) diagnosed with left unknown) clavicle fracture. We have placed you in a (unknown) (no (unknown) (unknown) [id number] (units (unkno wn) date) unknown) (unknown) (no (unknown) (unknown) 1,000 mcg tablet (units (unknown) date) (Vitamin B-12) unknown) (unknown) (no (unknown) (unknown) 17:01 (units (unkno wn) date) unknown) (unknown) (no (unknown) (unknown) 71-year-old female (units (unknown) date) that presents to the unknown) emergency department with a left (unknown) (no (unknown) (unknown) 71-year-old female, (unit s (unknown) date) former smoker, unknown) presents emergency department with left (unknown) (no (unknown) (unknown) ? (units (unkno wn) date) unknown) (unknown) (no (unknown) (unknown) ? Return to ER if (units (unknown) date) you should have any unknown) new, worsening or concerning symptoms, (unknown) (no (unknown) (unknown) Accession Number: (units (unknown) date) [id number] ?? unknown) (unknown) (no (unknown) (unknown) Acct:[id number] (units (unknown) date) unknown) (unknown) (no (unknown) (unknown) Activity (units (unkno wn) date) Restrictions/Additio unknown) nal Instructions: (unknown) (no (unknown) (unknown) Age/Sex: 71 / F (units (unknown) date) unknown) (unknown) (no (unknown) (unknown) Age/Sex: 71 / F (units (unknown) date) unknown) (unknown) (no (unknown) (unknown) Allergy/AdvReac (units (unknown) date) Type Severity unknown) Reaction Status Date / Time (unknown) (no (unknown) (unknown) Approved by: Rajendra (units (unknown) date) Zhao Ascencio on unknown) 07/09/2022 at 17:07 ? (unknown) (no (unknown) (unknown) July 04, due to (unit s (unknown) date) her right knee unknown) giving way. Patient denies hitting her head (unknown) (no (unknown) (unknown) Blood Pressure (units (unknown) date) 146/96 H 07/09/22 unknown) 17:01 (unknown) (no (unknown) (unknown) Blood Pressure (units (unknown) date) 146/96 H unknown) (unknown) (no (unknown) (unknown) Bones:? Segmental (units (unknown) date) left clavicle unknown) fracture with fractures at the mid and distal (unknown) (no (unknown) (unknown) CARDIOVASCULAR: (units (unknown) date) Denies palpitations, unknown) edema. (unknown) (no (unknown) (unknown) CARDIOVASCULAR: (units (unknown) date) Regular rate and unknown) rhythm without murmurs, peripheral pulses (unknown) (no (unknown) (unknown) COMPARISON:? None. (units (unknown) date) unknown) (unknown) (no (unknown) (unknown) Chief Complaint: (units (unknown) date) Extremity Injury, unknown) Upper (unknown) (no (unknown) (unknown) Clinical (units (unkno wn) date) Impression: unknown) (unknown) (no (unknown) (unknown) Consultation #1: (units (unknown) date) unknown) (unknown) (no (unknown) (unknown) Consultations (units ( unknown) date) unknown) (unknown) (no (unknown) (unknown) Cosign (units (unkno wn) date) unknown) (unknown) (no (unknown) (unknown) Course (units (unkno wn) date) unknown) (unknown) (no (unknown) (unknown) D3) (units (unkno wn) date) unknown) (unknown) (no (unknown) (unknown) : 1950 (units (unknown) date) Acct:[id number] unknown) (unknown) (no (unknown) (unknown) : 1950 (units (unknown) date) unknown) (unknown) (no (unknown) (unknown) Date of Service: (units (unknown) date) 07/09/22 unknown) (unknown) (no (unknown) (unknown) Departure (units (unkn own) date) unknown) (unknown) (no (unknown) (unknown) Dictated by: Rajendra (units (unknown) date) Zhao Ascencio on unknown) 07/09/2022 at 17:02 ? ? (unknown) (no (unknown) (unknown) Differential (units (u nknown) date) Diagnosis unknown) (unknown) (no (unknown) (unknown) Differential (units (u nknown) date) diagnosis: Likely unknown) fracture of clavicle (unknown) (no (unknown) (unknown) Discharge Plan (units (unknown) date) unknown) (unknown) (no (unknown) (unknown) Discontinued (units (u nknown) date) Medications unknown) (unknown) (no (unknown) (unknown) Dr. Alex, (units (unk nown) date) orthopedics. unknown) Recommended patient be placed in a splint and have her (unknown) (no (unknown) (unknown) ED Attending (units (u nknown) date) Cosignature unknown) Attestation: (unknown) (no (unknown) (unknown) ER Physician: (units ( unknown) date) Perry Gonzalez unknown) (unknown) (no (unknown) (unknown) Exam (units (unkno wn) date) unknown) (unknown) (no (unknown) (unknown) Exam Narrative: (units (unknown) date) unknown) (unknown) (no (unknown) (unknown) Extrem (units (unkno wn) date) unknown) (unknown) (no (unknown) (unknown) Extremity x-ray #1: (unit s (unknown) date) unknown) (unknown) (no (unknown) (unknown) FINDINGS:? (units (unk nown) date) unknown) (unknown) (no (unknown) (unknown) GASTROINTESTINAL: (units (unknown) date) Denies nausea, unknown) vomiting, abdominal pain, diarrhea, (unknown) (no (unknown) (unknown) GENERAL: Denies (units (unknown) date) chills, fatigue, unknown) fever, sweats. See HPI (unknown) (no (unknown) (unknown) GENERAL: This is a (units (unknown) date) well-nourished, unknown) well-developed patient, in no acute distress (unknown) (no (unknown) (unknown) : Denies dysuria, (unit s (unknown) date) frequency, unknown) incontinence, hematuria, urinary retention, (unknown) (no (unknown) (unknown) General (units (unkno wn) date) unknown) (unknown) (no (unknown) (unknown) HEAD: Atraumatic. (units (unknown) date) Normocephalic. unknown) (unknown) (no (unknown) (unknown) HEENT: Denies sinus (unit s (unknown) date) pain, ear pain, sore unknown) throat, difficulty swallowing, (unknown) (no (unknown) (unknown) HPI - Extremity (units (unknown) date) Injury (Upper) unknown) (unknown) (no (unknown) (unknown) HPI narrative: (units (unknown) date) unknown) (unknown) (no (unknown) (unknown) History of Present (units (unknown) date) Illness unknown) (unknown) (no (unknown) (unknown) I was immediately (units (unknown) date) available in the unknown) department for consultation throughout this (unknown) (no (unknown) (unknown) IMPRESSION:? (units (u nknown) date) unknown) (unknown) (no (unknown) (unknown) INDICATIONS:? PAIN (units (unknown) date) S/P FALL unknown) (unknown) (no (unknown) (unknown) Imaging Data (units (u nknown) date) unknown) (unknown) (no (unknown) (unknown) Initial Vital Signs (unit s (unknown) date) unknown) (unknown) (no (unknown) (unknown) Initial Vital (units ( unknown) date) Signs: unknown) (unknown) (no (unknown) (unknown) Instructions: DI (units (unknown) date) for Clavicle unknown) Fracture-Adult (unknown) (no (unknown) (unknown) Loc: DI (units (unkno wn) date) unknown) (unknown) (no (unknown) (unknown) Austin Lund MD (unit s (unknown) date) [Primary Care unknown) Provider] - (unknown) (no (unknown) (unknown) MDM - Extremity (units (unknown) date) Injury (Upper) unknown) (unknown) (no (unknown) (unknown) MDM Narrative (units ( unknown) date) unknown) (unknown) (no (unknown) (unknown) MR#: [id number] (units (unknown) date) unknown) (unknown) (no (unknown) (unknown) MSK: Moves all (units (unknown) date) extremities. Did not unknown) move left shoulder due to fractured left (unknown) (no (unknown) (unknown) MSK: Denies (units (un known) date) weakness, joint unknown) pain. Endorses left upper chest/clavicle pain and (unknown) (no (unknown) (unknown) Medical decision (units (unknown) date) making narrative: unknown) (unknown) (no (unknown) (unknown) Mode of arrival: (units (unknown) date) Ambulatory unknown) (unknown) (no (unknown) (unknown) NEURO: A+O x 3. (units (unknown) date) unknown) (unknown) (no (unknown) (unknown) NEUROLOGIC: Denies (units (unknown) date) weakness, dizziness, unknown) headache, numbness, confusion. (unknown) (no (unknown) (unknown) Narrative (units (unkn own) date) unknown) (unknown) (no (unknown) (unknown) Narrative: (units (unk nown) date) unknown) (unknown) (no (unknown) (unknown) No Action (units (unkn own) date) unknown) (unknown) (no (unknown) (unknown) No Known Drug (units ( unknown) date) Allergies Allergy unknown) Verified 07/09/22 17:06 (unknown) (no (unknown) (unknown) Kulwinder Alex MD (unit s (unknown) date) [Physician] - unknown) (unknown) (no (unknown) (unknown) Ordered: (units (unkno wn) date) unknown) (unknown) (no (unknown) (unknown) Ordering Provider: (units (unknown) date) Austin Lund MD unknown) (unknown) (no (unknown) (unknown) Orders (units (unkno wn) date) unknown) (unknown) (no (unknown) (unknown) Orthopedics, who (units (unknown) date) recommended patient unknown) be placed in a splint and have her follow- (unknown) (no (unknown) (unknown) Other: (units (unkno wn) date) unknown) (unknown) (no (unknown) (unknown) Oxycodone/Acetaminop (unit s (unknown) date) hen unknown) (Oxycodone/Acetamino phen 5/325 Tablet) 1 tab PO NOW ONE (unknown) (no (unknown) (unknown) Oxygen Delivery (units (unknown) date) Method 07/09/22 unknown) 17:01 (unknown) (no (unknown) (unknown) Oxygen Delivery (units (unknown) date) Method Room Air unknown) (unknown) (no (unknown) (unknown) PROCEDURE:? XR (units (unknown) date) CLAVICLE LT unknown) (unknown) (no (unknown) (unknown) PSYCHIATRIC: No (units (unknown) date) concerning unknown) psychosocial issues. (unknown) (no (unknown) (unknown) Passive and active (units (unknown) date) range of motion is unknown) limited due to pain. (unknown) (no (unknown) (unknown) Patient (units (unkno wn) date) Disposition: Home unknown) (unknown) (no (unknown) (unknown) Patient History (units (unknown) date) unknown) (unknown) (no (unknown) (unknown) Patient has been (units (unknown) date) applying hot and unknown) cold compresses over the last several days and (unknown) (no (unknown) (unknown) Patient: (units (unkno wn) date) Kamilla Metz unknown) MR#: [id number] (unknown) (no (unknown) (unknown) Patient: (units (unkno wn) date) Isaías,Kamilla N unknown) (unknown) (no (unknown) (unknown) Positive bruising (units (unknown) date) and tenting adjacent unknown) to the fracture site. Patient was placed (unknown) (no (unknown) (unknown) Positive bruising, (units (unknown) date) asymmetry and unknown) tenting adjacent to the fracture. Contacted (unknown) (no (unknown) (unknown) Prescriptions: (units (unknown) date) unknown) (unknown) (no (unknown) (unknown) Procedure: XR (units ( unknown) date) clavicle LT unknown) (unknown) (no (unknown) (unknown) Pulse Oximetry 97 (units (unknown) date) 07/09/22 17:01 unknown) (unknown) (no (unknown) (unknown) Pulse Oximetry 97 (units (unknown) date) unknown) (unknown) (no (unknown) (unknown) Pulse Rate 83 (units ( unknown) date) 07/09/22 17:01 unknown) (unknown) (no (unknown) (unknown) Pulse Rate 83 (units ( unknown) date) unknown) (unknown) (no (unknown) (unknown) RESPIRATORY: Breath (unit s (unknown) date) sounds equal and unknown) clear bilaterally. No wheezes, rales, or (unknown) (no (unknown) (unknown) RESPIRATORY: Denies (unit s (unknown) date) dyspnea, cough, unknown) wheezing, sputum. (unknown) (no (unknown) (unknown) Range of motion of (units (unknown) date) the elbow is normal. unknown) (unknown) (no (unknown) (unknown) Referrals: (units (unk nown) date) unknown) (unknown) (no (unknown) (unknown) Related Data (units (u nknown) date) unknown) (unknown) (no (unknown) (unknown) Resistive strength (units (unknown) date) intact. unknown) (unknown) (no (unknown) (unknown) Resource line at (units (unknown) date) [phone]. They unknown) will ask some questions about your medical (unknown) (no (unknown) (unknown) Respiratory Rate 20 (unit s (unknown) date) 07/09/22 17:01 unknown) (unknown) (no (unknown) (unknown) Respiratory Rate (units (unknown) date) 200 H unknown) (unknown) (no (unknown) (unknown) Review of Systems (units (unknown) date) unknown) (unknown) (no (unknown) (unknown) Reviewed (units (unkno wn) date) unknown) (unknown) (no (unknown) (unknown) SHOULDER: (units (unkn own) date) unknown) (unknown) (no (unknown) (unknown) SKIN: Denies rash, (units (unknown) date) skin lesions, or unknown) pruritis. (unknown) (no (unknown) (unknown) SKIN: Warm, dry, no (unit s (unknown) date) rashes or lesions unknown) noted. Bruising noted adjacent to left (unknown) (no (unknown) (unknown) Segmental left (units (unknown) date) clavicle fracture. unknown) (unknown) (no (unknown) (unknown) Sensation grossly (units (unknown) date) intact. unknown) (unknown) (no (unknown) (unknown) Signed By: (units (unk nown) date) unknown) (unknown) (no (unknown) (unknown) Smoking Status: (units (unknown) date) Former smoker unknown) (unknown) (no (unknown) (unknown) Smoking Status: (units (unknown) date) Former smoker unknown) (unknown) (no (unknown) (unknown) Social History (units (unknown) date) (Reviewed 07/09/22 @ unknown) 18:59 by PERNELL Wilson) (unknown) (no (unknown) (unknown) Soft tissues:? No (units (unknown) date) suspicious soft unknown) tissue calcifications.? (unknown) (no (unknown) (unknown) Source: patient (units (unknown) date) unknown) (unknown) (no (unknown) (unknown) Stated Complaint: (units (unknown) date) lt shoulder pain unknown) (unknown) (no (unknown) (unknown) Substance Use Type: (unit s (unknown) date) does not use unknown) (unknown) (no (unknown) (unknown) TECHNIQUE:? 2 views (unit s (unknown) date) of the clavicle were unknown) acquired.? (unknown) (no (unknown) (unknown) Temperature 98.1 F (units (unknown) date) 07/09/22 17:01 unknown) (unknown) (no (unknown) (unknown) Temperature 98.1 F (units (unknown) date) unknown) (unknown) (no (unknown) (unknown) The contralateral (units (unknown) date) shoulder exam is unknown) unremarkable. (unknown) (no (unknown) (unknown) The midportion (units ( unknown) date) fracture is apex unknown) superior.? There is moderate displacement of the (unknown) (no (unknown) (unknown) There is bruising, (units (unknown) date) swelling and unknown) asymmetry. (unknown) (no (unknown) (unknown) There is no soft (units (unknown) date) tissue tenderness to unknown) palpation. (unknown) (no (unknown) (unknown) There is tenderness (unit s (unknown) date) to palpation over unknown) the AC joint.. (unknown) (no (unknown) (unknown) Time Seen by (units (u nknown) date) Provider: 07/09/22 unknown) 18:44 (unknown) (no (unknown) (unknown) Visit Report Forms: (unit s (unknown) date) Patient Portal/API unknown) (unknown) (no (unknown) (unknown) Vital Signs (units (un known) date) unknown) (unknown) (no (unknown) (unknown) Vital signs: (units (u nknown) date) unknown) (unknown) (no (unknown) (unknown) [tylenol] 650 mg (units (unknown) date) PRN ##0 06/02/13 unknown) 09/09/19 (unknown) (no (unknown) (unknown) alcohol intake (units (unknown) date) frequency: 0-2 unknown) drinks per day (unknown) (no (unknown) (unknown) alprazolam 0.5 mg (units (unknown) date) tablet,extended 0.5 unknown) mg PO PRN ##0 06/02/13 09/09/19 (unknown) (no (unknown) (unknown) and with the (units (u nknown) date) exception of the unknown) fractured clavicle, all others were negative. (unknown) (no (unknown) (unknown) appointment. Let (units (unknown) date) them know you were unknown) seen in the Emergency Department and that we (unknown) (no (unknown) (unknown) ask that you be (units (unknown) date) seen in follow up. unknown) We will electronically transmit a record of (unknown) (no (unknown) (unknown) breathing, fever (units (unknown) date) greater than 101 F, unknown) shaking chills, persistent vomiting to the (unknown) (no (unknown) (unknown) bruising. (units (unkn own) date) unknown) (unknown) (no (unknown) (unknown) calcium carbonate (units (unknown) date) 500 mg calcium 500 unknown) mg PO DAILY 06/10/19 09/09/19 (unknown) (no (unknown) (unknown) carvedilol 3.125 mg (unit s (unknown) date) tablet (Coreg) 3.125 unknown) mg PO QDAY ##0 06/02/13 09/09/19 (unknown) (no (unknown) (unknown) cholecalciferol (units (unknown) date) (vitamin D3) 25 unknown) 1,000 unit PO DAILY 06/10/19 09/09/19 (unknown) (no (unknown) (unknown) clavicle fracture. (units (unknown) date) Patient fell this unknown) down 5 stairs approximately 6 days ago. (unknown) (no (unknown) (unknown) clavicle fracture. (units (unknown) date) Patient reports that unknown) she fell down 5 steps on , (unknown) (no (unknown) (unknown) clavicle. (units (unkn own) date) Neurovascularly unknown) intact. (unknown) (no (unknown) (unknown) cold compresses to (units (unknown) date) the affected site in unknown) use your [id number] medications as (unknown) (no (unknown) (unknown) constipation. (units ( unknown) date) unknown) (unknown) (no (unknown) (unknown) cyanocobalamin (units (unknown) date) (vitamin B-12) 1,000 unknown) mcg PO DAILY 06/10/19 09/09/19 (unknown) (no (unknown) (unknown) did not come in to (units (unknown) date) the hospital until unknown) she was reprimanded by her daughter. (unknown) (no (unknown) (unknown) dizziness. (units (unk nown) date) unknown) (unknown) (no (unknown) (unknown) family doctor as (units (unknown) date) needed. unknown) (unknown) (no (unknown) (unknown) flank pain. (units (un known) date) unknown) (unknown) (no (unknown) (unknown) follow-up with (units (unknown) date) orthopedic clinic in unknown) the morning. (unknown) (no (unknown) (unknown) fracture.? The (units (unknown) date) acromioclavicular unknown) joint is not widened.? No suspicious bony (unknown) (no (unknown) (unknown) fractured clavicle. (unit s (unknown) date) unknown) (unknown) (no (unknown) (unknown) history and help (units (unknown) date) get you set up with unknown) a doctor in the community. (unknown) (no (unknown) (unknown) in a sling which (units (unknown) date) slightly improved unknown) the pain. (unknown) (no (unknown) (unknown) intact, cap refill (units (unknown) date) <2 sec. unknown) (unknown) (no (unknown) (unknown) into the emergency (units (unknown) date) room immediately. unknown) Otherwise, please follow-up with your (unknown) (no (unknown) (unknown) intolerable pain, (units (unknown) date) difficulty unknown) breathing, chest pain, etc. please call 911 or get (unknown) (no (unknown) (unknown) lesions.? (units (unkn own) date) unknown) (unknown) (no (unknown) (unknown) letrozole 2.5 mg (units (unknown) date) tablet (Femara) 2.5 unknown) mg PO QDAY breast cancer #90 09/09/19 (unknown) (no (unknown) (unknown) lisinopril 2.5 mg (units (unknown) date) tablet 2.5 mg PO unknown) QDAY ##0 06/02/13 09/09/19 (unknown) (no (unknown) (unknown) mcg (1,000 unit) (units (unknown) date) tablet (Vitamin unknown) (unknown) (no (unknown) (unknown) medications. (units (u nknown) date) Discussed plan of unknown) care and return precautions with patient, who (unknown) (no (unknown) (unknown) or any loss of (units (unknown) date) consciousness. unknown) Patient's family doctor ordered multiple x-rays (unknown) (no (unknown) (unknown) patient's visit. I (units (unknown) date) agree with unknown) documentation as above. Skye Carreon MD (unknown) (no (unknown) (unknown) point that you (units (unknown) date) cannot drink fluids, unknown) or other new or worsening symptoms. (unknown) (no (unknown) (unknown) portions.? (units (unk nown) date) unknown) (unknown) (no (unknown) (unknown) release 24 hr (units ( unknown) date) (Effexor XR) unknown) (unknown) (no (unknown) (unknown) release 24 hr (units ( unknown) date) (Xanax XR) unknown) (unknown) (no (unknown) (unknown) reports he is able (units (unknown) date) to control her pain unknown) at home with [id number] (unknown) (no (unknown) (unknown) rhonchi. No cough. (units (unknown) date) No increased unknown) respiratory effort. No accessory muscle use. (unknown) (no (unknown) (unknown) splint that should (units (unknown) date) help with your unknown) discomfort. You may continue to apply hot or (unknown) (no (unknown) (unknown) such as worsening (units (unknown) date) pain, severe unknown) headache, confusion, chest pain, difficulty (unknown) (no (unknown) (unknown) today's note if (units (unknown) date) your PCP is in our unknown) system (unknown) (no (unknown) (unknown) up with orthopedics (unit s (unknown) date) in the morning. unknown) Percocet given in the ED, but patient (unknown) (no (unknown) (unknown) venlafaxine 75 mg (units (unknown) date) capsule,extended 75 unknown) mg PO QDAY ##0 06/02/13 09/09/19 (unknown) (no (unknown) (unknown) was agreeable with (units (unknown) date) course of action. unknown) (unknown) (no (unknown) (unknown) zinc 50 mg tablet (units (unknown) date) 50 mg PO DAILY unknown) 07/25/19 10/24/19 (unknown) (no (unknown) (unknown) zolpidem 10 mg (units (unknown) date) tablet (Ambien) 10 unknown) mg PO HS ##0 06/02/13 09/09/19 Social History No information. Vital Signs No information.
--- NOTE | 2022-08-18 14:58 | ED Physician Documentation ---
PD HPI URI - Stated complaint Stated Complaint: COUGHING/COLD SYMPTOM - Chief complaint Chief Complaint: Resp - History obtained from History obtained from: Patient - History of Present Illness Timing - onset: How many weeks ago (2) Timing duration: Weeks (2) Timing details: Gradual onset, Still present, Waxing and waning (Her grandson had a viral type illness with cough over 2 weeks ago and the patient developed similar symptoms a few days later. The patient was somewhat improving after a week and now increased cough aches and sputum the last several days.) Associated symptoms: Fever (initial few days), Chills, Sore throat, Productive cough (more the past several days), Dyspnea. No: Chest pain, NVD Contributing factors: Sick contact (her grandson had URI symptoms this past week but was negative for covid by home test.). No: COPD / asthma (no formal diagnosis, but has wheezing with illness and had improved symptoms with Albuterol with bronchitis last January.) Improves by: No: Medication (OTC cough/cold meds withut improvement.) Worsened by: Activity Similar symptoms before: Diagnosis (Diagnosed with bronchitis last January and improved with an inhaler as well as other medicines. Previous smoker and quit last January. No formal diagnosis of asthma nor COPD.) Recently seen: Not recently seen Review of Systems Constitutional: reports: Chills, Myalgias, Fatigue Nose: reports: Congestion. denies: Rhinorrhea / runny nose, Sinus pressure / pain Throat: reports: Sore throat (initially with illness, but is improved) Cardiac: denies: Chest pain / pressure Respiratory: reports: Dyspnea, Cough, Wheezing GI: denies: Vomiting, Diarrhea Skin: denies: Rash Neurologic: denies: Altered mental status, Headache PD PAST MEDICAL HISTORY - Past Medical History Cardiovascular: Hypertension, Coronary artery disease Respiratory: None Neuro: None Endocrine/Autoimmune: None GI: None MATERIAL ANALYST: None : Kidney stones HEENT: None Psych: None Musculoskeletal: Rheumatoid arthritis Derm: None - Past Surgical History Past Surgical History: Yes /MATERIAL ANALYST: Hysterectomy, Mastectomy - Present Medications Home Medications: Ambulatory Orders Medication Instructions Recorded Confirmed ALPRAZolam [Xanax] 0.5 mg PO HS 08/14/13 03/07/21 Letrozole 2.5 mg PO DAILY 08/14/13 03/07/21 Lisinopril [Zestril] 2.5 mg PO DAILY 08/14/13 03/07/21 Venlafaxine [Effexor] 75 mg PO BID 08/14/13 03/07/21 Zolpidem [Ambien] 10 mg PO HS 08/14/13 03/07/21 carvediloL [Carvedilol] 3.125 mg PO DAILY 08/14/13 03/07/21 Albuterol Sulf [Ventolin Hfa 1 - 2 puffs INH Q4HR PRN #1 inhaler 03/07/21 Inhaler] Doxycycline Hyclate 100 mg PO BID #20 03/07/21 predniSONE [Deltasone] 10 mg PO [id number] #42 tab 03/07/21 ALPRAZolam [Alprazolam] 0.5 mg PO BID PRN #10 tablet 08/18/22 Albuterol Sulf [Ventolin Hfa 2 - 3 puffs INH QID #1 each 08/18/22 Inhaler] Benzonatate [Tessalon] 100 mg PO TID PRN #15 cap 08/18/22 Doxycycline Hyclate 100 mg PO BID 5 Days #10 cap 08/18/22 Zolpidem [Ambien] 5 mg PO QPM 7 Days #7 tablet 08/18/22 Zolpidem [Ambien] 10 mg PO HS 7 Days #7 tablet 08/18/22 - Allergies Allergies/Adverse Reactions: Allergies Allergy/AdvReac Type Severity Reaction Status Date / Time No Known Drug Allergies Allergy Verified 08/18/22 14:52 - Living Situation Living Situation: reports: Alone Living Arrangement: reports: At home - Social History Does the pt smoke?: Yes Smoking Status: Former smoker (quit January 2022) Does the pt drink ETOH?: No Does the pt have substance abuse?: No - Immunizations Immunizations are current?: Yes - POLST Patient has POLST: No PD ED PE NORMAL - Vitals Vital signs reviewed: Yes (good sats) - General General: Alert and oriented X 3, No acute distress, Well developed/nourished - HEENT HEENT: Ears normal, Moist mucous membranes, Pharynx benign - Neck Neck: Supple, no meningeal sign, No adenopathy - Cardiac Cardiac: RRR, No murmur - Respiratory Respiratory: No respiratory distress. No: Clear bilaterally (wheezing expiratory, more left sided than right. No coarse sounds. ) - Abdomen Abdomen: Soft, Non tender - Derm Derm: Normal color, Warm and dry - Extremities Extremities: No tenderness to palpate (has supporter on right knee. No effusion. States arthritis pains commonly in right knee. ), No edema, No calf tenderness / cord - Neuro Neuro: Alert and oriented X 3, No motor deficit, Normal speech Results - Vitals Vitals: Vital Signs - 24 hr 08/18/22 08/18/22 08/18/22 14:49 15:31 15:48 Temperature 36 C L Heart Rate 97 84 86 Respiratory 16 20 18 Rate Blood Pressure 149/94 H 145/93 H O2 Saturation 99 97 08/18/22 18:25 Temperature Heart Rate 85 Respiratory 17 Rate Blood Pressure 147/89 H O2 Saturation 98 Oxygen O2 Source Room air - Labs Labs: Laboratory Tests 08/18/22 16:23 Nasal Influenza B PCR NOT DETECTED Nasal Influenza A PCR NOT DETECTED Nasal RSV (PCR) NOT DETECTED Nasal SARS-CoV-2 (PCR) DETECTED A - Rads (name of study) chest xray Radiology: Prelim report reviewed (no acute cardiopulmonary process), See rad report PD MEDICAL DECISION MAKING - ED course Complexity details: reviewed results (took a time interval for resp PCR to be obtained. Patient wanting to wait results as would like Paxlovid if positive. ), considered differential (2 weeks of viral type illness with upper respiratory symptoms then cough. Cough has worsened recently with sputum production and wheezing. History of smoking long-term with quitting just this past January.), d/w patient ED course: Vitals are good. sats good. Unlabored breathing but does have some wheezing. Improved with Albuterol MDI. We do not have take home inhalers and pharmacies closing at time of discharge. She should be okay until pharmacy tomorrow, and encouraged to return if worse breathing. Departure - Departure Disposition: 01 Home, Self Care Clinical Impression: COVID-19, Lower respiratory infection Insomnia Qualifiers: Insomnia type: unspecified Qualified Code(s): G47.00 - Insomnia, unspecified Condition: Stable Record reviewed to determine appropriate education?: Yes Follow-Up: Austin Lund MD [Primary Care Provider] - Prescriptions: ALPRAZolam [Alprazolam] 0.5 mg PO BID PRN #10 tablet PRN Reason: Anxiety Zolpidem [Ambien] 10 mg PO HS 7 Days #7 tablet Zolpidem [Ambien] 5 mg PO QPM 7 Days #7 tablet Doxycycline Hyclate 100 mg PO BID 5 Days #10 cap Benzonatate [Tessalon] 100 mg PO TID PRN #15 cap PRN Reason: Cough Albuterol Sulf [Ventolin Hfa Inhaler] 2 - 3 puffs INH QID #1 each Comments: You did test positive for COVID. This is likely the main underlying cause for not feeling well and cough. However it has been going on for a while and so its possible he may have a secondary bronchitis type infection as well. Your chest x-ray is clear without any signs of pneumonia. I would have you take the pack Slo-Bid antiviral medication twice daily for 5 days as per the kit instructions. Also albuterol inhaler 2 to 3 puffs 4 times daily for the next several days to week to help with breathing as well. Doxycycline twice daily for 5 days for potential secondary bacterial infection as well. Add the Tessalon if needed for cough. Continue your other usual medications. Since he will be unable to see your primary care tomorrow most likely because of the COVID, I did write a prescription for a weeks worth of your sleep and anxiety medicine of the Ambien/zolpidem and alprazolam. This should allow time for rescheduling with your primary care to get the subsequent regular prescriptions. I sent your prescriptions to [facility] pharmacy in [place]. Discharge Date/Time: 08/18/22 18:26
[2022-08-18] MEDS ORDERED: BENZONATATE 100 MG CAPSULE PO STA (15:11)
[2022-08-18] MEDS ORDERED: CHERRY SYRUP 10 ML UDC PO ONE (15:11)
[2022-08-18] MEDS ORDERED: DEXAMETHASONE 10 MG/ML VIAL PO STA (15:11)
[2022-08-18] MEDS ORDERED: ALBUTEROL 1 PUFF INH STA (15:11)
[2022-08-18] MEDS ORDERED: DOXYCYCLINE 100 MG TABLET PO STA (15:12)
--- NOTE | 2022-08-18 16:51 | XRAY Report ---
PROCEDURE: Chest 1 View X-Ray INDICATIONS: chest pain TECHNIQUE: One view of the chest was acquired. COMPARISON: 03/07/2021 FINDINGS: Surgical changes and devices: Left clavicular cortical sideplate and screws in good position. Bilate ral soft tissue surgical clips Lungs and pleura: No pleural effusions or pneumothorax. Lungs are clear. Mediastinum: Mediastinal contours appear normal. Heart size is normal. Bones and chest wall: No suspicious bony lesions. Overlying soft tissues appear unremarkable. IMPRESSION: No acute cardiopulmonary findings Reviewed by: Matt Murray MD on 08/18/2022 3:50 PM AKDT Approved by: Matt Murray MD on 08/18/2022 3:50 PM AKDT Station ID: [id number]
[2022-08-18 17:25] LABS: INFLUENZA A- RESP PCR PANEL NOT DETECTED; INFLUENZA B - RESP PCR PANEL NOT DETECTED; RSV- RESP PCR PANEL NOT DETECTED; SARS-CoV-2 -RESP PCR PANEL DETECTED
[2022-08-18] MEDS ORDERED: NIRMATRELVIR/RITONAVIR PREPACK PO STA (18:04)
[2022-08-18 18:26] VITALS: BP 147/89
== END 2022-08-18 18:26 | disposition home or self-care (01) ==
LOC: ED 14:43
DX: U07.1 COVID-19 (principal); J22 Unspecified acute lower respiratory infection; I10 Essential (primary) hypertension
CPT/HCPCS: 71045; 87637; 94640; 94664; 99284; 99285; A9270; J3490

== ENCOUNTER 2025-07-16 13:49 | Inpatient (IN) ==
--- NOTE | 2025-07-16 13:57 | ED Physician Documentation ---
History of Present Illness Stated complaint Stated Complaint: GLF, FEVER, LIGHTHEADED Chief complaint Chief Complaint: General Additonal information Additional information: 74-year-old with history of type 2 diabetes presents with fever, cough, and generalized fatigue. Patient reports symptoms started on Friday. She has been having rhinorrhea, a dry cough, and generalized weakness. Her symptoms have persisted into today. She has felt feverish but did not check a temperature at home. No chest pain or dyspnea. She is not having abdominal pain. She is not having dysuria or frequency. No back pain. She presents today due to continually feeling unwell. She did have 2 falls landing on her head in the last couple days. Meds/Allgy Home Medications Ambulatory Orders Medication Instructions Recorded Confirmed albuterol sulfate 90 mcg/actuation 1 - 2 puff inhalati on Q4HR PRN 03/07/21 02/21/25 aerosol inhaler (Ventolin HFA) Shortness Of Air/Wheezi ng ##1 prednisone 10 mg tablet 10 mg PO [id number] #42 tabs 03/07/21 02/21/25 zolpidem 5 mg tablet 10 mg (2 x 5 mg) PO HS 7 day s #7 08/18/22 02/21/25 tabs albuterol sulfate 90 mcg/actuation 1 - 2 puff inhalati on Q4HR PRN 08/25/22 02/21/25 aerosol inhaler (Ventolin HFA) Shortness Of Air/Wheezi ng #1 ea benzonatate 100 mg capsule 100 mg PO TID #30 caps 08/0802/21/25 alprazolam 0.5 mg tablet 0.5 mg PO BID 02/21/2502/21 blood-glucose meter #1 mike 02/21/25 insulin glargine 100 unit/mL (3 15 unit (0.15 mL) subc ut QAM #13.5 02/21/25 mL) subcutaneous pen (Lantus mL Solostar U-100 Insulin) lancets 32 gauge and blood glucose #300 mike 02/21/25 strips kit (TileuLink Blood Glucose System Refill) venlafaxine 75 mg capsule,extended 75 mg PO DAILY 06/1002/21/25 release 24 hr zolpidem 10 mg tablet 10 mg PO ONCE 02/21/2502/21 Allergies Allergies Allergy/AdvReac Type Severity Reaction Status Date / Time No Known Drug Allergies Allergy Verified 07/16/25 13:56 PFSH Active Problems All Active Problems (Updated 07/16/25 @ 15:35 by Henri Lehman MD) Acute hypoxemic respiratory failure (Acute) COVID (Acute) Hyperglycemia (Acute) Bronchitis (Acute) Medical History Medical History (Updated 07/16/25 @ 15:35 by Henri Lehman MD) Breast cancer COPD (chronic obstructive pulmonary disease) Diabetes Social History Social History (Updated 02/21/25 @ 14:38 by Austin Ramires, RN, BSN) Living arrangement: At home Living Condition: Alone Do you feel safe in your home environment?: Yes History of physical, verbal, emotional, or financial abuse?: No POLST Patient has POLST: No Exam Exam Vital Signs: Vital Signs x48h Temp Pulse Resp BP Pulse Ox O2 Flow Rate 07/16/25 16:00 37.1 C 86 24 97/66 97 4 07/16/25 14:44 4 07/16/25 14:43 32 H 95 4 07/16/25 14:30 76 L 07/16/25 14:22 38.2 C H 100 26 H 137/73 H 95 07/16/25 13:53 37.7 C 114 H 22 142/78 H 95 Unwell appearing. Febrile, tachycardic, and tachypneic although not hypoxemic. Sleepy but awakens to voice. Lungs are clear to auscultation bilaterally. S1 and S2 are audible. Abdomen is soft and nontender. Patient feels warm although extremities are warm and well-perfused. Grossly moving all extremities without focal neurologic deficit. Results Vitals Vitals: Vital Signs - 24 hr 07/16/25 13:53 07/16/25 14:22 07/16/25 14:30 Temperature 37.7 C 38.2 C H Temperature Source Oral Oral Pulse Rate 114 H 100 Respiratory Rate 22 26 H Blood Pressure 142/78 H 137/73 H O2 Saturation 95 95 76 L Oxygen Delivery Method O2 Source Room air Room air Room air If not protocol: Oxygen Flow, liters/minute Pain Intensity 5 5 07/16/25 14:43 07/16/25 14:44 07/16/25 15:01 Temperature Temperature Source Pulse Rate Respiratory Rate 32 H Blood Pressure O2 Saturation 95 Oxygen Delivery Method Nasal Cannula O2 Source Nasal cannula If not protocol: Oxygen Flow, liters/minute 4 4 Pain Intensity 3 07/16/25 16:00 07/16/25 16:23 Temperature 37.1 C Temperature Source Oral Pulse Rate 86 Respiratory Rate 24 Blood Pressure 97/66 O2 Saturation 97 Oxygen Delivery Method O2 Source Nasal cannula If not protocol: Oxygen Flow, liters/minute 4 Pain Intensity 0 0 Oxygen O2 Source Nasal cannula Labs Labs: Laboratory Tests 07/16/25 07/16/25 14:29 14:36 WBC 23.8 H RBC 4.19 L Hgb 12.4 Hct 36.9 L MCV 88.1 MCH 29.6 MCHC 33.6 RDW 13.2 Plt Count 300 MPV 9.6 Neut # (Auto) Not Reportable Lymph # (Auto) Not Reportable Hitchcock # (Auto) Not Reportable Eos # (Auto) Not Reportable Baso # (Auto) Not Reportable Absolute Nucleated RBC Not Reportable Total Counted 100 Band Neuts % (Manual) 6 Abnorm Lymph % (Manual) 0 Nucleated RBC % Not Reportable Neutrophils # (Manual) 21.4 H Lymphocytes # (Manual) 1.0 L Monocytes # (Manual) 1.4 H Eosinophils # (Manual) 0.0 Basophils # (Manual) 0.0 Differential Comment MANUAL DIFFERENTIAL WBC Morphology NORMAL APPEARANCE Platelet Estimate NORMAL (130-450,000) Platelet Morphology NORMAL APPEARANCE RBC Morph Micro Appear NORMAL APPEARANCE Sodium 135 Potassium 3.0 L Chloride 101 Carbon Dioxide 26 Anion Gap 8.0 BUN 13 Creatinine 0.9 Estimated GFR (MDRD) 61 L Glucose 329 H POC Whole Bld Glucose 359 Lactic Acid 2.1 Calcium 9.6 Total Bilirubin 0.8 AST 11 ALT 11 Alkaline Phosphatase 89 Total Protein 7.1 Albumin 3.6 Globulin 3.5 Albumin/Globulin Ratio 1.0 Nasal Influenza B PCR NOT DETECTED Nasal Influenza A PCR NOT DETECTED Nasal RSV (PCR) NOT DETECTED Nasal SARS-CoV-2 (PCR) DETECTED A PD Medical Decision Making ED course ED course: Presents with a few days of fever, weakness, cough, and generally feeling unwell. Patient is tachycardic, tachypneic, and febrile. Lungs are clear to auscultation, so I am unsure if she has a focal bacterial pneumonia. I am suspicious for COVID. I will check labs, COVID flu RSV testing, chest radiograph, CT head for altered mental status. I will order fluids and ketorolac. Chest radiograph interpreted by me as no acute cardiopulmonary disease. Patient is positive for COVID. She also has a notable leukocytosis. She apparently had a desaturation episode into the mid 70s and required 4 L of oxygen to return to normal oxygen saturation. Given her generally unwell appearance, abnormal vital signs, and hypoxemia, I will admit her to the hospital for acute respiratory failure secondary to COVID infection. Discharge Plan Discharge Patient Disposition: 66 [facility] DC/Xfer Clinical Impression: COVID, Acute hypoxemic respiratory failure Prescriptions: No Action prednisone 10 MG tablet 10 mg PO [id number] Qty: 42 0RF Rx Instructions: Day 1-4: Take 60mg (6 tablets) daily; Day 5-7: Take 40mg (4 tablets) daily; Day 8-10: Take 20mg (2 tablets) daily albuterol sulfate [Ventolin HFA] 200 PUFFS/18 GM HFA aerosol inhaler 1 - 2 puff inhalation Q4HR PRN (Reason: Shortness Of Air/Wheezing) Qty: 1 0RF zolpidem 5 MG tablet 10 mg PO HS 7 Days Qty: 7 0RF benzonatate 100 MG capsule 100 mg PO TID Qty: 30 0RF albuterol sulfate [Ventolin HFA] 200 PUFFS/18 GM HFA aerosol inhaler 1 - 2 puff inhalation Q4HR PRN (Reason: Shortness Of Air/Wheezing) Qty: 1 0RF (DME) BluLink BG System Refill 32 gauge kit See Rx Instructions .Route Qty: 300 0RF Rx Instructions: As directed (DME) blood-glucose meter Kit See Rx Instructions .Route Qty: 1 0RF Rx Instructions: As directed insulin glargine [Lantus Solostar U-100 Insulin] 100 unit/mL (3 mL) insulin pen 15 unit subcut QAM Qty: 13.5 0RF ipratropium-albuterol 0.5 mg-3 mg(2.5 mg base)/3 mL solution for nebulization 3 ml inhalation ONCE Qty: 1 0RF zolpidem 10 mg tablet 10 mg PO ONCE Patient Comments: TAKE ONE TABLET BY MOUTH ONE TIME DAILY DIRECTED alprazolam 0.5 mg tablet 0.5 mg PO BID Patient Comments: TAKE ONE TABLET BY MOUTH TWICE DAILY venlafaxine 75 mg capsule,extended release 24hr 75 mg PO DAILY Print Language: Greenlandic
[2025-07-16 14:43] LABS: HCT - HEMATOCRIT 36.9 % (37.0-47.0); HGB - HEMOGLOBIN 12.4 g/dL (12.0-16.0); MEAN PLATELET VOLUME 9.6 fL (7.9-10.8); PLT - PLATELET COUNT 300 10^3/uL (130-450); RED CELL DISTRIBUTION WIDTH 13.2 % (12.0-15.0)
[2025-07-16 14:50] LABS: ABNORMAL LYMPHS % (MANUAL) 0 %; BASOPHILS # (MANUAL) 0.0 10^3/uL (0-0.1); EOSINOPHILS # (MANUAL) 0.0 10^3/uL (0-0.7)
[2025-07-16 14:55] LABS: ALT ALANINE AMINOTRANSFERASE 11.0 IU/L (10-60); AST ASPARTATE AMINOTRANSFERASE 11.0 IU/L (10-42); BUN - BLOOD UREA NITROGEN 13.0 mg/dL (6-20); CARBON DIOXIDE - CO2 26.0 mmol/L (21-32); CREATININE 0.9 mg/dL (0.6-1.3); GFR - MDRD 61.0 (>89)
[2025-07-16] MEDS: LACTATED RINGERS 1,000 ML IV STA (15:01)
[2025-07-16] MEDS: KETOROLAC 15 MG/ML VIAL IVP STA (15:01)
[2025-07-16 15:09] LABS: BAND NEUTROPHILS % (MANUAL) 6 %; LYMPHOCYTES # (MANUAL) 1.0 10^3/uL (1.5-3.5); LYMPHOCYTES % (MANUAL) 4 %; MONOCYTES # (MANUAL) 1.4 10^3/uL (0.0-1.0); NEUTROPHILS # (MANUAL) 21.4 10^3/uL (1.5-6.6); PLATELET ESTIMATE, MANUAL NORMAL (130-450,000) (NORMAL); PLATELET MORPHOLOGY NORMAL APPEARANCE (NORMAL); RBC MORPHOLOGY (MULTIPLE) NORMAL APPEARANCE (NORMAL); WBC MORPHOLOGY (MULTIPLE) NORMAL APPEARANCE (NORMAL)
[2025-07-16] MEDS: POTASSIUM BICARB 25 MEQ TABLET PO STA (15:17)
--- NOTE | 2025-07-16 15:25 | CT Report ---
PROCEDURE: CT Head WO INDICATIONS: fall with head strike TECHNIQUE: CT of the head was performed, without intravenous contrast. Reformats: Coronal and sagittal. For radiation dose reduction, the following was used: automated exposure control, adjustment of mA and/or kV according to patient size. COMPARISON: None. FINDINGS: Image quality: Diagnostic. CSF spaces: Basal cisterns are patent. No extra-axial fluid collections. Ventricles are normal in size and shape. Brain: No midline shift. No intracranial mass effect or hemorrhage. Pandey- white matter interface is normal. There is mild global atrophy with compensatory enlargement of the CSF spaces, less than expected for age. Skull and face: Calvarium and visualized facial bones are intact, without suspicious lesions. Sinuses: Visualized sinuses and mastoids are clear. IMPRESSION: No acute intracranial pathology. Reviewed by: Mary Lou Marsh MD on 07/16/2025 2:23 PM BLUE Approved by: Mary Lou Marsh MD on 07/16/2025 2:23 PM WAMARILYN Station ID: [id number]
[2025-07-16 15:27] LABS: INFLUENZA A- RESP PCR PANEL NOT DETECTED; INFLUENZA B - RESP PCR PANEL NOT DETECTED; RSV- RESP PCR PANEL NOT DETECTED
[2025-07-16 15:28] LABS: SARS-CoV-2 -RESP PCR PANEL DETECTED
--- NOTE | 2025-07-16 15:31 | XRAY Report ---
PROCEDURE: XR Chest 2V INDICATIONS: fever, cough TECHNIQUE: 2 views of the chest were acquired. COMPARISON: Chest x-ray 8 08/18/2022 FINDINGS: Surgical changes and devices: Left clavicular ORIF as well as left axillary/chest wall clips. Lungs and pleura: No pleural effusions or pneumothorax. No consolidation. Mediastinum: Mediastinal contours appear normal. Heart size is mildly prominent. Bones and chest wall: No suspicious bony lesions. Overlying soft tissues appear unremarkable. IMPRESSION: No acute cardiopulmonary process. Reviewed by: Sehree Vazquez MD on 07/16/2025 3:30 PM PDT Approved by: Sheree Vazquez MD on 07/16/2025 3:30 PM PDT Station ID: [id number]
[2025-07-16] MEDS: DEXAMETHASONE 10 MG/ML VIAL IVP STA (16:17)
--- NOTE | 2025-07-16 17:27 | HISTORY & PHYSICAL EXAMINATION ---
Chief Complaint Chief Complaint Chief Complaint: Fever, lightheaded History of Present Illness History Obtained From History obtained from: Interview with patient, granddaughter Exam Limitations: Patient is somnolent History of Present Illness HPI Comment/Other: 74-year-old female history of type 2 diabetes, COPD, breast cancer presents to the ER with fever, cough, generalized fatigue, sore throat, runny nose. She reports the symptoms started on Friday, and they have persisted. She denies chest pain, productive cough, abdominal pain, bladder abnormality. She reports having 2 falls over the past couple days and did hit her head at some point In the ER, head CT was performed and found to be negative. Chest x-ray showed no acute process. Lab work was significant for hyperglycemia, hypokalemia at 3, WBC 23.8. Viral swab was obtained which was positive for COVID. Most importantly, patient was hypoxic requiring 4 L O2. Hospitalist was contacted for admission for acute on chronic hypoxic respiratory failure secondary to COVID-19 Meds/Allgy Home Medications Ambulatory Orders Medication Instructions Recorded Confirmed albuterol sulfate 90 mcg/actuation 1 - 2 puff inhalati on Q4HR PRN 03/07/21 02/21/25 aerosol inhaler (Ventolin HFA) Shortness Of Air/Wheezi ng ##1 prednisone 10 mg tablet 10 mg PO [id number] #42 tabs 03/07/21 02/21/25 zolpidem 5 mg tablet 10 mg (2 x 5 mg) PO HS 7 day s #7 08/18/22 02/21/25 tabs albuterol sulfate 90 mcg/actuation 1 - 2 puff inhalati on Q4HR PRN 08/25/22 02/21/25 aerosol inhaler (Ventolin HFA) Shortness Of Air/Wheezi ng #1 ea benzonatate 100 mg capsule 100 mg PO TID #30 caps 10/08/0802/21/25 alprazolam 0.5 mg tablet 0.5 mg PO BID 02/21/2502/21 blood-glucose meter #1 ea 02/21/25 insulin glargine 100 unit/mL (3 15 unit (0.15 mL) subc ut QAM #13.5 02/21/25 mL) subcutaneous pen (Lantus mL Solostar U-100 Insulin) lancets 32 gauge and blood glucose #300 ea 02/21/25 strips kit (BluLink Blood Glucose System Refill) venlafaxine 75 mg capsule,extended 75 mg PO DAILY 06/1002/21/25 release 24 hr zolpidem 10 mg tablet 10 mg PO ONCE 02/21/2502/21 Allergies Allergies Allergy/AdvReac Type Severity Reaction Status Date / Time No Known Drug Allergies Allergy Verified 07/16/25 13:56 PFSH Active Problems All Active Problems (Updated 07/16/25 @ 15:35 by Henri Lehman MD) Acute hypoxemic respiratory failure (Acute) COVID (Acute) Hyperglycemia (Acute) Bronchitis (Acute) Medical History Medical History (Updated 07/16/25 @ 15:35 by Henri Lehman MD) Breast cancer COPD (chronic obstructive pulmonary disease) Diabetes Social History Social History (Updated 02/21/25 @ 14:38 by Austin Ramires, RN, BSN) Living arrangement: At home Living Condition: Alone Do you feel safe in your home environment?: Yes History of physical, verbal, emotional, or financial abuse?: No POLST Patient has POLST: No Review of Systems Status of ROS: 10 or more systems reviewed and unremarkable except as noted in history and below and unobtainable due to mental status (ROS limited due to patient's somnolence) Constitutional Reports: Fever Ears, nose, mouth, and throat Reports: Nasal congestion Cardiovascular Reports: shortness of breath with exertion; Denies: chest pain Respiratory Reports: Shortness of breath and Cough; Denies: Sputum production Exam Exam Vital Signs: Vital Signs x48h Temp Pulse Resp BP Pulse Ox O2 Flow Rate 07/16/25 16:00 37.1 C 86 24 97/66 97 4 07/16/25 14:44 4 07/16/25 14:43 32 H 95 4 07/16/25 14:30 76 L 07/16/25 14:22 38.2 C H 100 26 H 137/73 H 95 07/16/25 13:53 37.7 C 114 H 22 142/78 H 95 Constitutional normal general appearance and no apparent distress HENMT normocephalic and head/scalp atraumatic Eyes PERRL Neck/C-Spine visual inspection normal Lymph no lymphadenopathy noted Chest inspection of chest normal and palpation of chest normal Respiratory breath sounds equal bilaterally, normal respiratory effort and clear to auscultation bilaterally Cardiovascular normal heart rate noted and regular rhythm noted Gastrointestinal abdomen normal to inspection and abdomen soft to palpation Extremities normal to inspection Neurology GCS calculation - Eye opening: To Voice Verbal response: Oriented Motor response: Obeys Commands Ligia Coma Scale total score: 14 Psychiatry oriented x3 Skin skin color normal Conclusion/Plan Problem List (1) Acute hypoxemic respiratory failure: Plan: This respiratory failure is likely due to COVID infection on top of pre-existing COPD Room air at baseline, on 4 L now O2 as needed Manage COVID as below (2) COVID: Plan: COVID was detected on nasal swab Decadron 10 mg IV push once Decadron 6 mg p.o. daily starting tomorrow DuoNeb RT 4 times daily as needed Encourage pulmonary toilet Check D-dimer, procalcitonin (3) Diabetes: Plan: Appears to be managed with Lantus at home Check A1c SSI Plan Admit inpatient med floor Full code She names her granddaughter as her surrogate decision maker Lab Results Lab results reviewed: Yes 07/16/25 14:29 07/16/25 14:29 Core Measures Anticipated LOS I expect patient to be DC'd or transferred within 96 hours.: Yes DVT/VTE - Prophylaxis VTE/DVT Prophylaxis med ordered at admit?: Yes
--- OUTSIDE RECORDS SUMMARY | 2025-07-16 17:38 | EXTERNAL MEDICAL SUMMARY RPT | Continuity of Care Document ---
Author Organization [facility] Address [address] [address] Phone Problems date description facility 2025-07-16 15:03 Shortness of breath [facility] 2025-07-16 15:03 Dizziness and giddiness [facility] 2025-07-16 15:03 Other abnormal glucose [facility] 2025-07-16 15:03 Hyperglycemia, unspecified [facility] Results/Labs test date facility value unit notes Result panel 1 ABNORMAL LYMPHS % (MANUAL) 2025-07-16 14:29 [facility] 0 % (missing) BASOPHILS # (MANUAL) 2025-07-16 14:29 [facility] 0.0 10 3/ul (missing) EOSINOPHILS # (MANUAL) 2025-07-16 14:29 [facility] 0.0 10 3/ul (missing) BILIRUBIN,TOTAL 2025-07-16 14:29 [facility] 0.8 mg /dl As of May 2023 testing method has changed, this may include reference ranges. CREATININE 2025-07-16 14:29 [facility] 0.9 mg/dl As of May 2023 testing method has changed, this may include reference ranges. ALBUMIN/GLOBULIN RATIO 2025-07-16 14:29 [facility] 1.0 (missing) (missing) LYMPHOCYTES # (MANUAL) 2025-07-16 14:29 [facility] 1.0 10 3/ul (missing) MONOCYTES # (MANUAL) 2025-07-16 14:29 [facility] 1.4 10 3/ul (missing) TOTAL CELLS COUNTED 2025-07-16 14:29 [facility] 100 (missing) (missing) CHLORIDE 2025-07-16 14:29 [facility] 101 mmol/l As of May 2023 testing method has changed, this may include reference ranges. AST ASPARTATE AMINOTRANSFERASE 2025-07-16 14:29 [facility] 11 iu/l As of May 2023 testing method has changed, this may include reference ranges. ALT ALANINE AMINOTRANSFERASE 2025-07-16 14:29 [facility] 11 iu/l As of May 2023 testing method has changed, this may include reference ranges. HGB - HEMOGLOBIN 2025-07-16 14:29 [facility] 12.4 g /dl (missing) BUN - BLOOD UREA NITROGEN 2025-07-16 14:29 [facility] 13 mg/dl As of May testing method has changed, this may include reference ranges. RED CELL DISTRIBUTION WIDTH 2025-07-16 14:29 [facility] 13.2 % (missing) SODIUM 2025-07-16 14:29 [facility] 135 mmol/l (missing) LACTIC ACID, VENOUS 2025-07-16 14:29 [facility] 2.1 mmol/l N As of May 2023 testing method has changed, this may include reference ranges. NEUTROPHILS # (MANUAL) 2025-07-16 14:29 [facility] 21.4 10 3/ul (missing) WHITE BLOOD COUNT 2025-07-16 14:29 [facility] 23.8 x10 3/ul (missing) CARBON DIOXIDE - CO2 2025-07-16 14:29 [facility] 26 mmol/l As of May 2023 testing method has changed, this may include reference ranges. MEAN CORPUSCULAR HEMOGLOBIN 2025-07-16 14:29 [facility] 29.6 pg (missing) POTASSIUM 2025-07-16 14:29 [facility] 3.0 mmol/l As of May 2023 testing method has changed, this may include reference ranges. GLOBULIN 2025-07-16 14:29 [facility] [employer] 3.5 g/dl (missing) ALBUMIN 2025-07-16 14:29 [facility] 3.6 g/dl As of May 2023 testing method has changed, this may include reference ranges. PLT - PLATELET COUNT 2025-07-16 14:29 [facility] 300 10 3/ul (missing) GLUCOSE 2025-07-16 14:29 [facility] 329 mg/dl As of May 2023 testing method has changed, this may include reference ranges. MEAN CORPUSCULAR HGB CONC 2025-07-16 14:29 [employer] 33.6 g/dl (missing) HCT - HEMATOCRIT 2025-07-16 14:29 [facility] [employer] 36.9 % (missing) RED BLOOD COUNT 2025-07-16 14:29 [facility] 4.19 10 6/ul (missing) BAND NEUTROPHILS % (MANUAL) 2025-07-16 14:29 [facility] 6 % (missing) GFR - MDRD 2025-07-16 14:29 [facility] Social History date description facility
[2025-07-16] MEDS ORDERED: SODIUM CHLORIDE FLUSH 0.9% 10 ML SYRINGE IVP PRN (18:16)
[2025-07-16] MEDS: SODIUM CHLORIDE FLUSH 0.9% 10 ML SYRINGE IVP SCH (18:46)
--- NOTE | 2025-07-16 21:30 | CT Report ---
PROCEDURE: CT Angio Chest INDICATIONS: Hypoxia, elevated D-dimer CONTRAST: 100 ml omni 300 TECHNIQUE: After the administration of intravenous contrast, 2 mm axial images were acquired from the pulmonary apices to the posterior costophrenic angles during the arterial phase. In addition, 1 mm lung kernel and 5 mm soft tissue kernel reconstructions were performed. 3-dimensional coronal oblique maximum intensity projection (MIP) reformats, 8 mm axial MIP, and 5 mm coronal and sagittal MPR reformats were then performed through the thorax. For radiation dose reduction, the following was used: automated exposure control, adjustment of mA and/or kV according to patient size. COMPARISON: Correlation is made with the accompanying imaging. FINDINGS: Image quality: Motion artifact is noted. Large vessels: Within the right lower lobe, there is a mild burden of segmental pulmonary wasn't seen. Within the left lower lobe, a mild burden of segmental pulmonary embolus is also seen. The pulmonary arteries demonstrate normal size. Lungs and pleura: There is significant poorly defined infiltrate within the dependent left lower lobe. There is a mild degree of thin the dependent medial right lower lobe. Mild dependently layering groundglass opacity can be seen elsewhere within the lungs. No pleural effusions. No pneumothorax. No s uspicious pulmonary nodules which require follow up. Mediastinum: Heart size is normal. No findings of right heart strain. No pericardial effusion. No large vessel abnormality. No mediastinal adenopathy by size criteria. Chest wall and lower neck: Thyroid is unremarkable. Bilateral mastectomy change. Left axillary clips are seen. No axillary or supraclavicular adenopathy by size. Bones: No aggressive osseous abnormality. Mild levoconvex scoliotic curvature is seen. There is accentuated thoracic kyphosis. Age-appropriate degenerative changes are seen. Upper Abdomen: Cholecystectomy clips are seen. IMPRESSION: Segmental pulmonary motion can be seen involving both lower lobes. No findings of right heart strain can be seen. Significant left lower lobe infiltrate, with mild right lower lobe infiltrate. Additional findings: Mild coronary artery calcification Bilateral mastectomy change Left axillary clips Cholecystectomy Note: Case discussed by telephone with Ankur Somers at 9:28 PM [place] time on 07/16/2025. Reviewed by: Sunil Le MD on 07/16/2025 8:29 PM AKDT Approved by: Sunil Le MD on 07/16/2025 8:29 PM AKDT Station ID: [id number]
[2025-07-16] MEDS: APIXABAN 5 MG TABLET PO SCH (22:22)
[2025-07-16] MEDS: AZITHROMYCIN 250 MG TABLET PO SCH (22:22)
[2025-07-16] MEDS: INSULIN LISPRO 300 UNIT/3 ML PEN SUBQ SCH (22:23)
[2025-07-17 04:53] LABS: HCT - HEMATOCRIT 36.4 % (37.0-47.0); HGB - HEMOGLOBIN 12.2 g/dL (12.0-16.0); MEAN PLATELET VOLUME 9.8 fL (7.9-10.8); NRBC ABSOLUTE COUNT (AUTO) 0.00 x10^3/uL; NUCLEATED RED BLOOD CELLS AUTO 0.0 /100WBC; PLT - PLATELET COUNT 305 10^3/uL (130-450); RED CELL DISTRIBUTION WIDTH 13.3 % (12.0-15.0)
[2025-07-17 05:11] LABS: BUN - BLOOD UREA NITROGEN 19.0 mg/dL (6-20); CARBON DIOXIDE - CO2 29.0 mmol/L (21-32); CREATININE 0.8 mg/dL (0.6-1.3); GFR - MDRD 70.0 (>89)
[2025-07-17 05:17] LABS: PLATELET ESTIMATE, MANUAL NORMAL (130-450,000) (NORMAL); PLATELET MORPHOLOGY NORMAL APPEARANCE (NORMAL); RBC MORPHOLOGY (MULTIPLE) NORMAL APPEARANCE (NORMAL); WBC MORPHOLOGY (MULTIPLE) NORMAL APPEARANCE (NORMAL)
[2025-07-17 05:37] LABS: GLUCOSE, URINE (UA) >=1000 mg/dL (NEGATIVE); KETONES,URINE (UA) NEGATIVE (NEGATIVE); OCCULT BLOOD,URINE MODERATE (NEGATIVE)
[2025-07-17 05:44] LABS: SQUAMOUS EPITHELIAL CELL,UR FEW Squamous (<= Few)
[2025-07-17] MEDS ORDERED: INSULIN LISPRO 300 UNIT/3 ML PEN SUBQ SCH (08:00)
[2025-07-17] MEDS: INSULIN LISPRO 300 UNIT/3 ML PEN SUBQ SCH (08:51)
[2025-07-17] MEDS: ACETAMINOPHEN 325 MG TABLET PO PRN (08:56)
[2025-07-17] MEDS ORDERED: ENOXAPARIN 40 MG/0.4 ML SYRINGE SUBQ SCH (09:00)
--- NOTE | 2025-07-17 11:24 | PHARMACY PROGRESS NOTE ---
Best Possible Medication History Admit Date and Time: 07/16/25 1650 Home Medications Medication Instructions Recorded Confirmed Type zolpidem 5 mg tablet 10 mg (2 x 5 mg) PO HS 7 day s #7 08/18/22 07/17/25 Rx tabs alprazolam 0.5 mg tablet 0.5 mg PO BID 02/21/2507/17 History blood-glucose meter #1 ea 02/21/25 Rx insulin glargine 100 unit/mL (3 15 unit (0.15 mL) subc ut QAM #13.5 02/21/25 07/17/25 Rx mL) subcutaneous pen (Lantus mL Solostar U-100 Insulin) lancets 32 gauge and blood glucose #300 ea 02/21/25 R x strips kit ([employer] Blood Glucose System Refill) venlafaxine 75 mg capsule,extended 75 mg PO DAILY 06/1007/17/25 History release 24 hr Processed by: Pharmacy Medications reviewed in ED?: No Medication History completed: Yes Secondary Source(s): Pharmacy records and Insurance records [facility] Statement: As the person ultimately responsible for medication therapy, providers are able to order a medication from an existing home medication list in [facility] via the "Reconcile Routine" prior to Confirmation of that medication by donor support technician. Such practice is discouraged except when the physician, in their clinical judgment, deems that a medical need exists for a medication without regard to previous use.
[2025-07-17 12:03] LABS: ESTIMATED AVERAGE GLUCOSE 134 mg/dL (70-100); HEMOGLOBIN A1c% 6.3 % (4.27-6.07)
--- NOTE | 2025-07-17 12:28 | PROVIDER PROGRESS NOTE ---
Subjective Prog Note Date Prog Note Date: 07/17/25 Subjective Pt reports feeling: Improved Current Medications Current Medications Current Medications: Current Medications Generic Name Dose Route Start Last Admin Trade Name Ad PRN Reason Stop Dose Admin Acetaminophen 650 mg 07/16/25 18:16 07/17/25 08:56 Acetaminophen 325 Mg Tablet PO 650 mg Q4HR PRN Administration Pain 1 to 4, or Fever Apixaban 10 mg 07/16/25 22:00 07/17/25 08:56 Apixaban 5 Mg Tablet PO 10 mg BID TAJ Administration Azithromycin 500 mg 07/16/25 21:35 07/17/25 08:57 Azithromycin 250 Mg Tablet PO 500 mg DAILY TAJ Administration Ceftriaxone Sodium 2 gm 07/16/25 21:30 07/17/25 08:50 Ceftriaxone 2 Gm Vial IVP 2 gm DAILY TAJ Administration Dexamethasone 6 mg 07/17/25 12:00 07/17/25 12:01 Dexamethasone 4 Mg Tablet PO 6 mg DAILYWM TAJ Administration Insulin Human Lispro 2 - 10 unit 07/17/25 08:00 07/17/25 11:51 Insulin Lispro 300 Unit/3 Ml Pen SUBQ 10 unit 0800,1200,1700,2100 TAJ Administration Protocol Sodium Chloride 10 ml 07/16/25 18:16 Sodium Chloride Flush 0.9% 10 Ml Syringe IVP PRN PRN NEEDED PER PROVIDER ORDERS Sodium Chloride 10 ml 07/16/25 18:16 07/17/25 08:57 Sodium Chloride Flush 0.9% 10 Ml Syringe IVP 10 ml 0100,0900,1700 TAJ Administration Objective Vital Signs/Intake & Output Reviewed Vital Signs: Yes Intake & Output: Intake & Output 07/14/25 07/15/25 07/16/25 07/17/25 23:59 23:59 23:59 23:59 Intake Total 1050 / 1050 400 / 400 Output Total 0 / 0 1100 / 1100 Balance 1050 / 1050 -700 / -700 Weight (kg) 84 kg Objective General Appearance: positive No acute distress and Alert Eyes Bilateral: positive Normal inspection ENT: positive ENT inspection nml Neck: positive Nml inspection Respiratory: positive Chest non-tender, No respiratory distress and Rhonchi Cardiovascular: positive Regular rate & rhythm Abdomen: positive Non-tender Skin: positive Color nml Extremities: positive Non-tender Neurologic/Psychiatric: positive Oriented x3 Lab Results 07/17/25 04:32 07/17/25 04:32 Other Labs: Lab Results x24hrs 07/17/25 07/17/25 07/17/25 Range/Units 11:41 08:08 04:55 WBC (4.8-10.8) x10^3/uL RBC (4.20-5.40) 10^6/uL Hgb (12.0-16.0) g/dL Hct (37.0-47.0) % MCV (81.0-99.0) fL MCH (27.0-31.0) pg MCHC (32.0-36.0) g/dL RDW (12.0-15.0) % Plt Count (130-450) 10^3/uL MPV (7.9-10.8) fL Neut # (Auto) Lymph # (Auto) [place] # (Auto) Eos # (Auto) Baso # (Auto) Absolute Nucleated RBC Total Counted Band Neuts % (Manual) (0 - 10) % Abnorm Lymph % (Manual) % Nucleated RBC % Neutrophils # (Manual) (1.5-6.6) 10^3/uL Lymphocytes # (Manual) (1.5-3.5) 10^3/uL Monocytes # (Manual) (0.0-1.0) 10^3/uL Eosinophils # (Manual) (0-0.7) 10^3/uL Basophils # (Manual) (0-0.1) 10^3/uL Differential Comment WBC Morphology (NORMAL) Platelet Estimate (NORMAL) Platelet Morphology (NORMAL) RBC Morph Micro Appear (NORMAL) D-Dimer (200.0-255.0) ng/mL Sodium (135-145) mmol/L Potassium (3.5-4.5) mmol/L Chloride (101-111) mmol/L Carbon Dioxide (21-32) mmol/L Anion Gap (6-13) BUN (6-20) mg/dL Creatinine (0.6-1.3) mg/dL Estimated GFR (MDRD) (>89) Glucose (74-104) mg/dL POC Whole Bld Glucose 337 264 (70-100) mg/dL Estimat Average Glucose (70-100) mg/dL Hemoglobin A1c % (4.27-6.07) % Lactic Acid (0.5-2.2) mmol/L Calcium (8.5-10.3) mg/dL Total Bilirubin (0.2-1.0) mg/dL AST (10-42) IU/L ALT (10-60) IU/L Alkaline Phosphatase (42-121) IU/L Total Protein (6.4-8.9) g/dL Albumin (3.2-5.5) g/dL Globulin (2.1-4.2) g/dL Albumin/Globulin Ratio (1.0-2.2) Procalcitonin Immunoas (<0.5) ng/mL Urine Color YELLOW Urine Clarity CLEAR (CLEAR) Urine pH 6.0 (5.0-7.5) PH Ur Specific [place] 1.010 (1.002-1.030) Urine Protein TRACE (NEGATIVE) mg/dL Urine Glucose (UA) >=1000 H (NEGATIVE) mg/dL Urine Ketones NEGATIVE (NEGATIVE) mg/dL Urine Occult Blood MODERATE (NEGATIVE) Urine Nitrite NEGATIVE (NEGATIVE) Urine Bilirubin NEGATIVE (NEGATIVE) Urine Urobilinogen 0.2 (NORMAL) (NORMAL) E.U./dL Ur Leukocyte Esterase NEGATIVE (NEGATIVE) Urine RBC 6-10 H (0-5) /HPF Urine WBC 4-5 (0-5) /HPF Ur Squamous Epith Cells FEW Squamous (<= Few) Urine Bacteria Many H (None Seen) /HPF Ur Microscopic Review INDICATED Urine Culture Comments NOT INDICATED Nasal Influenza B PCR Nasal Influenza A PCR Nasal RSV (PCR) Nasal SARS-CoV-2 (PCR) 07/17/25 07/16/25 07/16/25 Range/Units 04:32 20:53 18:17 WBC 21.8 H (4.8-10.8) x10^3/uL RBC 4.11 L (4.20-5.40) 10^6/uL Hgb 12.2 (12.0-16.0) g/dL Hct 36.4 L (37.0-47.0) % MCV 88.6 (81.0-99.0) fL MCH 29.7 (27.0-31.0) pg MCHC 33.5 (32.0-36.0) g/dL RDW 13.3 (12.0-15.0) % Plt Count 305 (130-450) 10^3/uL MPV 9.8 (7.9-10.8) fL Neut # (Auto) 19.6 H Lymph # (Auto) 0.9 L [place] # (Auto) 1.0 Eos # (Auto) 0.1 Baso # (Auto) 0.1 Absolute Nucleated RBC 0.00 Total Counted Band Neuts % (Manual) Not Reportable (0 - 10) % Abnorm Lymph % (Manual) Not Reportable % Nucleated RBC % 0.0 Neutrophils # (Manual) Not Reportable (1.5-6.6) 10^3/uL Lymphocytes # (Manual) Not Reportable (1.5-3.5) 10^3/uL Monocytes # (Manual) Not Reportable (0.0-1.0) 10^3/uL Eosinophils # (Manual) Not Reportable (0-0.7) 10^3/uL Basophils # (Manual) Not Reportable (0-0.1) 10^3/uL Differential Comment MANUAL=AUTO DIFF WBC Morphology NORMAL APPEARANCE (NORMAL) Platelet Estimate NORMAL (130-450,000) (NORMAL) Platelet Morphology NORMAL APPEARANCE (NORMAL) RBC Morph Micro Appear NORMAL APPEARANCE (NORMAL) D-Dimer (200.0-255.0) ng/mL Sodium 138 (135-145) mmol/L Potassium 3.6 (3.5-4.5) mmol/L Chloride 103 (101-111) mmol/L Carbon Dioxide 29 (21-32) mmol/L Anion Gap 6.0 (6-13) BUN 19 (6-20) mg/dL Creatinine 0.8 (0.6-1.3) mg/dL Estimated GFR (MDRD) 70 L (>89) Glucose 323 H (74-104) mg/dL POC Whole Bld Glucose 255 233 (70-100) mg/dL Estimat Average Glucose 134 H (70-100) mg/dL Hemoglobin A1c % 6.3 H (4.27-6.07) % Lactic Acid (0.5-2.2) mmol/L Calcium 9.3 (8.5-10.3) mg/dL Total Bilirubin (0.2-1.0) mg/dL AST (10-42) IU/L ALT (10-60) IU/L Alkaline Phosphatase (42-121) IU/L Total Protein (6.4-8.9) g/dL Albumin (3.2-5.5) g/dL Globulin (2.1-4.2) g/dL Albumin/Globulin Ratio (1.0-2.2) Procalcitonin Immunoas (<0.5) ng/mL Urine Color Urine Clarity (CLEAR) Urine pH (5.0-7.5) PH Ur Specific [place] (1.002-1.030) Urine Protein (NEGATIVE) mg/dL Urine Glucose (UA) (NEGATIVE) mg/dL Urine Ketones (NEGATIVE) mg/dL Urine Occult Blood (NEGATIVE) Urine Nitrite (NEGATIVE) Urine Bilirubin (NEGATIVE) Urine Urobilinogen (NORMAL) E.U./dL Ur Leukocyte Esterase (NEGATIVE) Urine RBC (0-5) /HPF Urine WBC (0-5) /HPF Ur Squamous Epith Cells (<= Few) Urine Bacteria (None Seen) /HPF Ur Microscopic Review Urine Culture Comments Nasal Influenza B PCR Nasal Influenza A PCR Nasal RSV (PCR) Nasal SARS-CoV-2 (PCR) 07/16/25 07/16/25 Range/Units 14:36 14:29 WBC 23.8 H (4.8-10.8) x10^3/uL RBC 4.19 L (4.20-5.40) 10^6/uL Hgb 12.4 (12.0-16.0) g/dL Hct 36.9 L (37.0-47.0) % MCV 88.1 (81.0-99.0) fL MCH 29.6 (27.0-31.0) pg MCHC 33.6 (32.0-36.0) g/dL RDW 13.2 (12.0-15.0) % Plt Count 300 (130-450) 10^3/uL MPV 9.6 (7.9-10.8) fL Neut # (Auto) Not Reportable Lymph # (Auto) Not Reportable [place] # (Auto) Not Reportable Eos # (Auto) Not Reportable Baso # (Auto) Not Reportable Absolute Nucleated RBC Not Reportable Total Counted 100 Band Neuts % (Manual) 6 (0 - 10) % Abnorm Lymph % (Manual) 0 % Nucleated RBC % Not Reportable Neutrophils # (Manual) 21.4 H (1.5-6.6) 10^3/uL Lymphocytes # (Manual) 1.0 L (1.5-3.5) 10^3/uL Monocytes # (Manual) 1.4 H (0.0-1.0) 10^3/uL Eosinophils # (Manual) 0.0 (0-0.7) 10^3/uL Basophils # (Manual) 0.0 (0-0.1) 10^3/uL Differential Comment MANUAL DIFFERENTIAL WBC Morphology NORMAL APPEARANCE (NORMAL) Platelet Estimate NORMAL (130-450,000) (NORMAL) Platelet Morphology NORMAL APPEARANCE (NORMAL) RBC Morph Micro Appear NORMAL APPEARANCE (NORMAL) D-Dimer 366.7 H (200.0-255.0) ng/mL Sodium 135 (135-145) mmol/L Potassium 3.0 L (3.5-4.5) mmol/L Chloride 101 (101-111) mmol/L Carbon Dioxide 26 (21-32) mmol/L Anion Gap 8.0 (6-13) BUN 13 (6-20) mg/dL Creatinine 0.9 (0.6-1.3) mg/dL Estimated GFR (MDRD) 61 L (>89) Glucose 329 H (74-104) mg/dL POC Whole Bld Glucose 359 (70-100) mg/dL Estimat Average Glucose (70-100) mg/dL Hemoglobin A1c % (4.27-6.07) % Lactic Acid 2.1 (0.5-2.2) mmol/L Calcium 9.6 (8.5-10.3) mg/dL Total Bilirubin 0.8 (0.2-1.0) mg/dL AST 11 (10-42) IU/L ALT 11 (10-60) IU/L Alkaline Phosphatase 89 (42-121) IU/L Total Protein 7.1 (6.4-8.9) g/dL Albumin 3.6 (3.2-5.5) g/dL Globulin 3.5 (2.1-4.2) g/dL Albumin/Globulin Ratio 1.0 (1.0-2.2) Procalcitonin Immunoas 2.96 H* (<0.5) ng/mL Urine Color Urine Clarity (CLEAR) Urine pH (5.0-7.5) PH Ur Specific [place] (1.002-1.030) Urine Protein (NEGATIVE) mg/dL Urine Glucose (UA) (NEGATIVE) mg/dL Urine Ketones (NEGATIVE) mg/dL Urine Occult Blood (NEGATIVE) Urine Nitrite (NEGATIVE) Urine Bilirubin (NEGATIVE) Urine Urobilinogen (NORMAL) E.U./dL Ur Leukocyte Esterase (NEGATIVE) Urine RBC (0-5) /HPF Urine WBC (0-5) /HPF Ur Squamous Epith Cells (<= Few) Urine Bacteria (None Seen) /HPF Ur Microscopic Review Urine Culture Comments Nasal Influenza B PCR NOT DETECTED Nasal Influenza A PCR NOT DETECTED Nasal RSV (PCR) NOT DETECTED Nasal SARS-CoV-2 (PCR) DETECTED A Assessment/Plan Problem List (1) Acute hypoxemic respiratory failure: Impression: Her respiratory failure is secondary to combination of underlying COPD, COVID- positive status, superimposed bacterial pneumonia, PE Manage all of these as below (2) Pulmonary embolus: Impression: Multiple subsegmental pulmonary emboli were noted on CTA chest I started Eliquis last night Check DVT ultrasound to look for source No evidence of right heart strain on CT (3) COVID: Impression: COVID-positive on presentation She received 10 mg loading dose of Decadron On 07/16 Procalcitonin and Decadron were both checked and found to be positive Decadron 6 mg p.o. daily for 10-day course Supportive care, pulmonary hygiene (4) Community acquired pneumonia: Impression: She had an elevated procalcitonin and CT evidence of pneumonia I have started her on Rocephin 2 g IV daily, as well as azithromycin 500 mg p.o. daily (5) Diabetes: Impression: I have restarted her 15 unit subcu daily Lantus Continue SSI Follow-up A1c
[2025-07-17] MEDS ORDERED: INSULIN GLARGINE-YFGN 300 UNIT/3 ML PEN SUBQ SCH (13:00)
[2025-07-17] MEDS: INSULIN GLARGINE-YFGN 300 UNIT/3 ML PEN SUBQ SCH (17:32)
--- NOTE | 2025-07-17 19:54 | Ultrasound Report ---
PROCEDURE: US Venous Duplex BL INDICATIONS: Henri Lehman MD TECHNIQUE: Real-time imaging, as well as color and pulse Doppler interrogation, were performed of the deep veins of both legs from the inguinal ligament to the popliteal fossa. Attempted visualization of the calf veins was performed. COMPARISON: None FINDINGS: The deep veins are normally compressible, and free of intraluminal thrombus. Color and pulse Doppler demonstrate normal phasic intravascular flow. There is normal augmentation response to distal compression maneuver. This is present in the right greater saphenous vein. IMPRESSION: No deep venous thrombosis of the visualized lower extremities. Thrombus within the right greater saphenous vein suggestive of thrombophlebitis. Reviewed by: Sheree Vazquez MD on 07/17/2025 7:53 PM PDT Approved by: Sheree Vazquez MD on 07/17/2025 7:53 PM PDT Station ID: [id number]
[2025-07-17] MEDS: ZOLPIDEM 5 MG TABLET PO SCH (21:29)
[2025-07-18 05:11] LABS: HCT - HEMATOCRIT 36.1 % (37.0-47.0); HGB - HEMOGLOBIN 12.4 g/dL (12.0-16.0); MEAN PLATELET VOLUME 9.9 fL (7.9-10.8); NRBC ABSOLUTE COUNT (AUTO) 0.00 x10^3/uL; NUCLEATED RED BLOOD CELLS AUTO 0.0 /100WBC; PLT - PLATELET COUNT 381 10^3/uL (130-450); RED CELL DISTRIBUTION WIDTH 13.2 % (12.0-15.0)
[2025-07-18 05:30] LABS: BUN - BLOOD UREA NITROGEN 21.0 mg/dL (6-20); CARBON DIOXIDE - CO2 29.0 mmol/L (21-32); CREATININE 0.7 mg/dL (0.6-1.3); GFR - MDRD 82.0 (>89)
[2025-07-18 05:33] LABS: PLATELET ESTIMATE, MANUAL NORMAL (130-450,000) (NORMAL); PLATELET MORPHOLOGY NORMAL APPEARANCE (NORMAL); RBC MORPHOLOGY (MULTIPLE) NORMAL APPEARANCE (NORMAL); WBC MORPHOLOGY (MULTIPLE) NORMAL APPEARANCE (NORMAL)
[2025-07-18] MEDS: VENLAFAXINE ER 75 MG CAPSULE PO SCH (08:18)
[2025-07-18 09:32] VITALS: TEMP 97.7
[2025-07-18] MEDS: BENZOCAINE/MENTHOL LOZENGE MM PRN (10:14)
[2025-07-18] MEDS: POTASSIUM CHLORIDE 20 MEQ TABLET PO ONE (10:14)
--- NOTE | 2025-07-18 10:22 | Discharge Summary ---
Discharge Summary Admit Date: 07/16/25 Discharge Date: 07/18/25 Discharging Provider: Ankur Somers Primary Care Provider: Austin Lund Code Status: Attempt Resuscitation DIAGNOSES Admission Diagnoses: Acute respiratory failure with hypoxemia COVID-19 Diabetes mellitus Discharge Diagnoses with Status of Each Condition: Acute hypoxemic respiratory failure Secondary to COVID, bacterial pneumonia, PE Pulmonary embolusDC on Eliquis. Secondary to right sided DVT COVIDDC on steroid Community-acquired pneumoniafinished azithromycin, DC on Augmentin Diabetes/chronic HPI History of Present Illness: 74-year-old female history of type 2 diabetes, COPD, breast cancer presents to the ER with fever, cough, generalized fatigue, sore throat, runny nose. She reports the symptoms started on Friday, and they have persisted. She denies chest pain, productive cough, abdominal pain, bladder abnormality. She reports having 2 falls over the past couple days and did hit her head at some point In the ER, head CT was performed and found to be negative. Chest x-ray showed no acute process. Lab work was significant for hyperglycemia, hypokalemia at 3, WBC 23.8. Viral swab was obtained which was positive for COVID. Most importantly, patient was hypoxic requiring 4 L O2. Hospitalist was contacted for admission for acute on chronic hypoxic respiratory failure secondary to COVID-19 HOSPITAL COURSE Hospital Course: Patient was found to have a positive procalcitonin and positive D-dimer. She was sent for CTA chest which shows multiple subsegmental PE as well as left lower lobe infiltrate. She was started on antibiotics for community-acquired pneumonia superimposed on COVID-pneumonia. Venous duplex was performed which showed thrombus within the right greater saphenous vein. She was monitored on antibiotics, anticoagulant, steroid until she returned to room air. Today, she is feeling much better and is safe to discharge home. She has been discharged with course of steroid, Augmentin, Eliquis. She is to follow-up with her PCP ALLERGIES Allergies Allergy/AdvReac Type Severity Reaction Status Date / Time No Known Drug Allergies Allergy Verified 07/16/25 13:56 MEDICATIONS Ambulatory Orders Medication Instructions Recorded Confirmed zolpidem 5 mg tablet 10 mg (2 x 5 mg) PO HS 7 day s #7 08/18/22 07/17/25 tabs alprazolam 0.5 mg tablet 0.5 mg PO BID 02/21/2507/17 blood-glucose meter #1 ea 02/21/25 lancets 32 gauge and blood glucose #300 ea 02/21/25 strips kit ([facility] Blood Glucose System Refill) venlafaxine 75 mg capsule,extended 75 mg PO DAILY 06/1007/17/25 release 24 hr insulin glargine 100 unit/mL (3 15 unit subcut QPM 07/17/25 mL) subcutaneous pen (Lantus Solostar U-100 Insulin) Augmentin 875 mg-potassium 1 tab PO BID 3 days #6 tabs 07/18/25 clavulanate 125 mg tablet apixaban 5 mg (74 tabs) tablets in See Rx Instructions PO .COMPLEX 07/18/25 a dose pack (Eliquis DVT-PE Treat #74 ea 30D Start) dexamethasone 4 mg tablet 6 mg (1.5 x 4 mg) PO DAILYWM 5 07/18/25 days #8 tabs PHYSICAL EXAM AT DISCHARGE Vital Signs: Vital Signs x48h Temp Pulse Resp BP BP Pulse Ox 07/18/25 13:26 36.5 C 92 20 172/90 H 98 07/18/25 08:30 36.5 C 83 18 133/71 H 96 General Appearance: positive No acute distress and Alert Eyes Bilateral: positive Normal inspection Respiratory: positive Chest non-tender and No respiratory distress Cardiovascular: positive Regular rate & rhythm Peripheral Pulses: positive 2+ Abdomen: positive Non-tender Skin: positive Color nml Extremities: positive Non-tender Neurologic/Psychiatric: positive Oriented x3 LABS 07/18/25 04:49 07/18/25 04:49 FOLLOW UP Follow Up: With PCP TIME SPENT Time Spent in Discharge (Minutes): 37 Discharge Plan Discharge Patient Disposition: Home, Self Care Prescriptions: New Eliquis DVT-PE Treat 30D Start 5 mg (74 tabs) tablets,dose pack See Rx Instructions .ROUTE .COMPLEX Qty: 74 0RF Rx Instructions: orally per package directions. 10 mg twice daily for the first 7 days, followed by 5 mg orally twice daily thereafter dexamethasone 4 mg Tablet 6 mg PO DAILYWM 5 Days Qty: 8 0RF amoxicillin-pot clavulanate 875-125 mg tablet 1 tab PO BID 3 Days Qty: 6 0RF Continued zolpidem 5 MG tablet 10 mg PO HS 7 Days Qty: 7 0RF (DME) [facility] BG System Refill 32 gauge kit See Rx Instructions .Route Qty: 300 0RF Rx Instructions: As directed (DME) blood-glucose meter Kit See Rx Instructions .Route Qty: 1 0RF Rx Instructions: As directed insulin glargine [Lantus Solostar U-100 Insulin] 100 unit/mL (3 mL) insulin pen 15 unit subcut QPM alprazolam 0.5 mg tablet 0.5 mg PO BID Patient Comments: TAKE ONE TABLET BY MOUTH TWICE DAILY venlafaxine 75 mg capsule,extended release 24hr 75 mg PO DAILY Activity Restrictions: No Restrictions Diet: Regular Health Concerns: You came into the hospital and were found to be positive for COVID-19. Further workup revealed that she also had a bacterial pneumonia on top of your COVID infection. You also were found to have a clot in your right leg, which is caused to have multiple small clots in your lungs on each side. We have weaned your oxygen back down to room air, and you are safe to discharge back home. I would like for you to take an oral antibiotic called Augmentin twice daily until the bottle is empty. I would also like for you to finish out a course of steroids for your COVID. I am also placing you on a medication called Eliquis. This is a drug to help prevent the clots in your leg and your lungs from getting worse while your body naturally breaks down the clots. The Eliquis regimen is for 10 mg twice daily for the first 7 days, followed by 5 mg twice daily after that. You have received your dose of antibiotic and steroid for today, your next dose of these will be tomorrow. You will need a dose of your blood thinner tonight. Please be as active as you can safely manage, and follow-up with your primary care provider for further management Print Language: Kazakh Patient Instructions: DVT Dc Stand Alone Forms: PCP List Follow-up Care: Austin Lund MD [Primary Care Provider, Client Service Supervisor] Vitals documented within 30 minutes of discharge?: Yes
[2025-07-18 13:28] VITALS: BP 172/90; O2SAT 98
--- NOTE | 2025-07-19 12:42 | ED Physician Documentation ---
ED Addendum Addendum Addendum: I was notified that the patient's blood cultures returned 2/2 positive for strep pneumonia. Our charge nurse called the patient on 2 different phone lines listed in her chart and left a message to please come to the emergency department for further evaluation. She would benefit from repeat cultures. The hospitalist contacted me and told me that treatment for this bacteremia would be the same as treatment for the pneumonia. 7 days of abx should be sufficient. She would benefit from repeat cultures here and could discharge home if feeling well. Discharge Plan Discharge Patient Disposition: [facility] DC/Xfer Clinical Impression: COVID, Acute hypoxemic respiratory failure Interventions: ED Admission Assessment Last Done: 07/16/25 18:18 Vitals documented within 30 minutes of discharge?: Yes
== END 2025-07-18 13:28 | disposition home or self-care (01) | DRG 177 ==
LOC: ED 13:49 → MS2 16:50
PROVIDERS: ADMIT Nurse Practitioner Acute Care; ATTEND Nurse Practitioner Acute Care
DX: J44.0 Chronic obstructive pulmonary disease with (acute) lower respiratory infection; E87.6 Hypokalemia; Z79.4 Long term (current) use of insulin; J44.9 Chronic obstructive pulmonary disease, unspecified; J96.01 Acute respiratory failure with hypoxia; E11.65 Type 2 diabetes mellitus with hyperglycemia; I26.99 Other pulmonary embolism without acute cor pulmonale; Z79.899 Other long term (current) drug therapy; Z85.3 Personal history of malignant neoplasm of breast; I82.4Y1 Acute embolism and thrombosis of unspecified deep veins of right proximal lower extremity; Z91.81 History of falling; U07.1 COVID-19; J96.21 Acute and chronic respiratory failure with hypoxia; E11.9 Type 2 diabetes mellitus without complications; J15.9 Unspecified bacterial pneumonia

== ENCOUNTER 2025-07-21 16:53 | Inpatient (IN) ==
--- NOTE | 2025-07-21 17:17 | ED Physician Documentation ---
History of Present Illness Stated complaint Stated Complaint: LUMPS ON STOMACH, VOMITING, COVID+ Chief complaint Chief Complaint: Resp History obtained from History obtained from: Patient and Family Additonal information Additional information: 74-year-old woman with history of recurrent breast cancer but now in remission, COPD, type 2 diabetes, laparotomy after trauma and also a nephrectomy, she is not sure why. She was seen and admitted on July 16 for pneumonia, she did have COVID. She ended up being discharged but subsequently her blood cultures both came back positive for pansensitive Streptococcus pneumoniae. We had called her, but she said she slept through the phone calls now returns with her granddaughter. In the interim she has developed some ventral hernias from coughing that are quite painful. She feels weak and dizzy and vomited once. No fevers. Meds/Allgy Home Medications Ambulatory Orders Medication Instructions Recorded Confirmed zolpidem 5 mg tablet 10 mg (2 x 5 mg) PO HS 7 day s #7 08/18/22 07/17/25 tabs alprazolam 0.5 mg tablet 0.5 mg PO BID 02/21/2507/17 blood-glucose meter #1 ea 02/21/25 lancets 32 gauge and blood glucose #300 ea 02/21/25 strips kit ([facility] Blood Glucose System Refill) venlafaxine 75 mg capsule,extended 75 mg PO DAILY 06/1007/17/25 release 24 hr insulin glargine 100 unit/mL (3 15 unit subcut QPM 07/17/25 mL) subcutaneous pen (Lantus Solostar U-100 Insulin) Augmentin 875 mg-potassium 1 tab PO BID 3 days #6 tabs 07/18/25 clavulanate 125 mg tablet apixaban 5 mg (74 tabs) tablets in See Rx Instructions PO .COMPLEX 07/18/25 a dose pack (Eliquis DVT-PE Treat #74 ea 30D Start) dexamethasone 4 mg tablet 6 mg (1.5 x 4 mg) PO DAILYWM 5 07/18/25 days #8 tabs Allergies Allergies Allergy/AdvReac Type Severity Reaction Status Date / Time No Known Drug Allergies Allergy Verified 07/21/25 17:00 PFSH Active Problems All Active Problems (Updated 07/21/25 @ 17:47 by Ashvin Eng MD) Bacteremia due to Streptococcus pneumoniae (Acute) Perforated abdominal viscus (Acute) Pulmonary embolus (Acute) Community acquired pneumonia (Acute) Acute hypoxemic respiratory failure (Acute) COVID (Acute) Hyperglycemia (Acute) Bronchitis (Acute) Medical History Medical History (Updated 07/21/25 @ 17:47 by Ashvin Eng MD) Breast cancer COPD (chronic obstructive pulmonary disease) Diabetes Social History Social History If you are a former smoker, when did you quit? (Date/Year): 2018 Number of Years Smoked: 50 How many cigarettes a day do you smoke? (20 cigarettes=1 Pk): 20 Second hand tobacco smoke exposure: No Do you dip or chew tobacco?: No Do you vape?: No Patient requests smoking cessation consult: No Initiate information on smoking cessation: No Living arrangement: At home Living Condition: Alone Level: Independent Do you feel safe in your home environment?: Yes History of physical, verbal, emotional, or financial abuse?: No Substance Use: denies use and former substance user POLST Patient has POLST: No Exam Exam Vital Signs: Vital Signs x48h Temp Pulse Resp BP Pulse Ox 07/21/25 18:15 108 H 20 123/82 92 07/21/25 17:30 117 H 36 H 150/95 H 93 07/21/25 17:17 118 H 35 H 166/99 H 92 07/21/25 16:57 36.9 C 130 H 24 128/90 93 Constitutional She appears ill and she is tachypneic and tachycardic. Mild encephalopathy, much of the history is from the granddaughter because of that. Respiratory Tachypneic with rhonchorous lungs Cardiovascular Tachycardic but regular without murmur Gastrointestinal There are 2 tender and not easily reducible ventral hernias within a laparotomy incision anteriorly. No diffuse tenderness. Results Vitals Vitals: Vital Signs - 24 hr 07/21/25 16:57 07/21/25 17:00 07/21/25 17:17 Temperature 36.9 C Temperature Source Temporal Artery Scan Pulse Rate 130 H 118 H Respiratory Rate 24 35 H Blood Pressure 128/90 166/99 H O2 Saturation 93 92 O2 Source Room air Pain Intensity 8 8 07/21/25 17:30 07/21/25 18:15 Temperature Temperature Source Pulse Rate 117 H 108 H Respiratory Rate 36 H 20 Blood Pressure 150/95 H 123/82 O2 Saturation 93 92 O2 Source Room air Pain Intensity 0 Oxygen O2 Source Room air EKG (time done) 1715: EKG releavant findings:: EKG personally interpreted by author of this note. Relevant findings are: Sinus tachycardia with rate of 123. She does have 3 monomorphic PVCs on the rhythm strip. LAE, LAFB, LVH. No obvious acute ischemia. Labs Labs: Laboratory Tests 07/21/25 07/21/25 17:15 17:36 WBC 36.8 H* RBC 5.14 Hgb 15.0 Hct 46.2 MCV 89.9 MCH 29.2 MCHC 32.5 RDW 14.2 Plt Count 622 H MPV 10.4 Neut # (Auto) Not Reportable Lymph # (Auto) Not Reportable Baxter # (Auto) Not Reportable Eos # (Auto) Not Reportable Baso # (Auto) Not Reportable Absolute Nucleated RBC Not Reportable Total Counted 100 Band Neuts % (Manual) 3 Abnorm Lymph % (Manual) 0 Nucleated RBC % Not Reportable Neutrophils # (Manual) 35.3 H Lymphocytes # (Manual) 1.1 L Monocytes # (Manual) 0.4 Eosinophils # (Manual) 0.0 Basophils # (Manual) 0.0 Nucleated RBCs 1 Differential Comment MANUAL DIFFERENTIAL WBC Morphology 1+ HYPERSEG NEUT Platelet Estimate INCREASED (>450,000) Platelet Morphology 1+ LARGE PLATELETS RBC Morph Micro Appear NORMAL APPEARANCE Sodium 134 L Potassium 4.1 Chloride 93 L Carbon Dioxide 25 Anion Gap 16.0 H BUN 43 H Creatinine 1.5 H Estimated GFR (MDRD) 34 L Glucose 443 H Lactic Acid 4.3 H* Calcium 9.4 Total Bilirubin 1.2 H AST 15 ALT 15 Alkaline Phosphatase 113 Total Protein 7.5 Albumin 3.2 Globulin 4.3 H Albumin/Globulin Ratio 0.7 L Rads (name of study) 1v cxr: Relevant Findings:: EMP independent interpretation of test (widespread free air) CT A/P: Relevant Findings:: Final report received and EMP independent interpretation of test Interpretation: 1. There is extensive free air present. 2. The origin of the free air is felt to either be perforation of the sigmoid or perforation of the jejunum. 3. The sigmoid colon has extensive diverticuli. However, does not appear significantly inflamed. There does appear to be air that may track from a diverticulum outside of the sigmoid. 4. As opposed to the sigmoid, the jejunum is quite abnormal in appearance. It has wall thickening and dilatation of bowel loops. This may potentially represent ischemic bowel or peritonitis from perforated viscus with associated inflammation of the bowel wall and ileus. 5. No findings suggest that the perforation is related to peptic ulcer disease. 6. Ascitic fluid is likely infected fluid. PD Medical Decision Making ED course ED course: This is an ill 74-year-old woman with known COVID and strep pneumo bacteremia who now presents with potentially incarcerated ventral hernias. She was seen after initial triage and I ordered sepsis workup as well as Rocephin and a CT to evaluate her hernias. I was able to review her chest x-ray at about 5:40 PM and my independent interpretation is that this shows widespread Fi air and I spoke with Dr Swann, our on-call surgeon at 5:43 PM and broadened her antibiotic coverage to Zosyn. Shortly thereafter I also spoke with our hospitalist as she will probably need to get involved, Dr. Thornton for ICU admission. Workup in the emergency department demonstrates a white count of 36,000, elevated lactic acidosis, RICCARDO and significant hyperglycemia. She received 30 mg/kg of saline, Zosyn and Rocephin as above. We repeated blood cultures. Will give her small dose of IV insulin. Dr Swann did ask if we could try to transfer her to a tertiary facility, but I have other patients that have been waiting for critical transport for many hours and so the plan is to take her to the OR here. She has been taking Eliquis so I also ordered PCC. Critical Care Time(min): 45 Time Includes: Direct patient care, Review records, Reassess patient, Document care, Coordinate care, Medical consult and Family consult for tx dec Data interpretation: Labs and Pulse ox Procedures included in critical care time: Peripheral IV and Blood draw Discharge Plan Discharge Patient Disposition: ED Transfer to [facility] Condition: Critical Clinical Impression: Perforated abdominal viscus, Bacteremia due to Streptococcus pneumoniae Prescriptions: No Action zolpidem 5 MG tablet 10 mg PO HS 7 Days Qty: 7 0RF (DME) [facility] BG System Refill 32 gauge kit See Rx Instructions .Route Qty: 300 0RF Rx Instructions: As directed (DME) blood-glucose meter Kit See Rx Instructions .Route Qty: 1 0RF Rx Instructions: As directed insulin glargine [Lantus Solostar U-100 Insulin] 100 unit/mL (3 mL) insulin pen 15 unit subcut QPM Eliquis DVT-PE Treat 30D Start 5 mg (74 tabs) tablets,dose pack See Rx Instructions .ROUTE .COMPLEX Qty: 74 0RF Rx Instructions: orally per package directions. 10 mg twice daily for the first 7 days, followed by 5 mg orally twice daily thereafter dexamethasone 4 mg Tablet 6 mg PO DAILYWM 5 Days Qty: 8 0RF amoxicillin-pot clavulanate 875-125 mg tablet 1 tab PO BID 3 Days Qty: 6 0RF alprazolam 0.5 mg tablet 0.5 mg PO BID Patient Comments: TAKE ONE TABLET BY MOUTH TWICE DAILY venlafaxine 75 mg capsule,extended release 24hr 75 mg PO DAILY Print Language: Divehi Stand Alone Forms: PCP List
[2025-07-21] MEDS: cefTRIAXone 1 GM VIAL IVP STA (17:25)
[2025-07-21] MEDS: SODIUM CHLORIDE 0.9% 2,500 ML IV STA (17:25)
[2025-07-21 17:26] LABS: HCT - HEMATOCRIT 46.2 % (37.0-47.0); HGB - HEMOGLOBIN 15.0 g/dL (12.0-16.0); MEAN PLATELET VOLUME 10.4 fL (7.9-10.8); PLT - PLATELET COUNT 622 10^3/uL (130-450); RED CELL DISTRIBUTION WIDTH 14.2 % (12.0-15.0)
--- OUTSIDE RECORDS SUMMARY | 2025-07-21 17:33 | EXTERNAL MEDICAL SUMMARY RPT | Continuity of Care Document ---
Author Organization [facility] Address [address] [place] [id number] Phone Problems date description facility 2025-07-16 15:03 Shortness of breath [facility] 2025-07-16 15:03 Dizziness and giddiness [facility] 2025-07-16 15:03 Other abnormal glucose [facility] 2025-07-16 15:03 Hyperglycemia, unspecified [facility] 2025-07-16 17:36 Acute respiratory failure with hypoxia [facility] 2025-07-16 17:36 [facility] 2025-07-16 18:39 Type 2 diabetes mellitus withou t complications [facility] 2025-07-16 18:39 Acute respiratory failure with hypoxia [facility] 2025-07-16 18:39 [facility] 2025-07-17 10:29 Type 2 diabetes mellitus withou t complications [facility] 2025-07-17 10:29 Acute respiratory failure with hypoxia [facility] 2025-07-17 10:29 [facility] 2025-07-18 10:14 Type 2 diabetes mellitus withou t complications [facility] 2025-07-18 10:14 Other pulmonary embolism withou t acute cor pulmonale [facility] 2025-07-18 10:14 Pneumonia, unspecified organism [facility] 2025-07-18 10:14 Acute respiratory failure with hypoxia [facility] 2025-07-18 10:14 [facility] 2025-07-18 10:21 Type 2 diabetes mellitus withou t complications [facility] 2025-07-18 10:21 Other pulmonary embolism withou t acute cor pulmonale [facility] 2025-07-18 10:21 Pneumonia, unspecified organism [facility] 2025-07-18 10:21 Acute respiratory failure with hypoxia [facility] 2025-07-18 10:21 COVID-[address] [place] [id number] 2025-07-18 10:31 Type 2 diabetes mellitus withou t complications [facility] 2025-07-18 10:31 Other pulmonary embolism withou t acute cor pulmonale [facility] 2025-07-18 10:31 Pneumonia, unspecified organism [facility] 2025-07-18 10:31 Acute respiratory failure with hypoxia [facility] 2025-07-18 10:31 [facility] [place] [address] 2025-07-18 13:28 Type 2 diabetes mellitus withou t complications [facility] 2025-07-18 13:28 Other pulmonary embolism withou t acute cor pulmonale [facility] 2025-07-18 13:28 Pneumonia, unspecified organism [facility] 2025-07-18 13:28 Acute respiratory failure with hypoxia [facility] 2025-07-18 13:28 [facility] [place] [address] 2025-07-21 07:05 Type 2 diabetes mellitus withou t complications [facility] 2025-07-21 07:05 Other pulmonary embolism withou t acute cor pulmonale [facility] 2025-07-21 07:05 Pneumonia, unspecified organism [facility] 2025-07-21 07:05 Acute respiratory failure with hypoxia [facility] 2025-07-21 07:05 Cough, unspecified [facility] 2025-07-21 07:05 Fever, unspecified [facility] 2025-07-21 07:05 Other fatigue [facility] 2025-07-21 07:[address] Results/Labs test date facility value unit notes Result panel 1 BLOOD CULTURE ID PCR 2025-07-16 14:29 [facility] (missing) (missing) (missing) CULTURE, BLOOD #1 2025-07-16 14:29 [facility] (missing) (missing) (missing) BENZYLPENICILLIN 2025-07-16 14:29 [facility] <=0.06 (missing) (missing) TIGECYCLINE 2025-07-16 14:29 [facility] <=0.06 (missing) (missing) CEFTRIAXONE 2025-07-16 14:29 [facility] <=0.12 (missing) (missing) ERYTHROMYCIN 2025-07-16 14:29 [facility] <=0.12 (missing) (missing) CLINDAMYCIN 2025-07-16 14:29 [facility] <=0.25 (missing) (missing) TETRACYCLINE 2025-07-16 14:29 [facility] <=0.25 (missing) (missing) TRIMETHOPRIM/SULFAMET HOXAZOLE 2025-07-16 14:29 [facility] <=10 (missing) (missing) LINEZOLID 2025-07-16 14:29 [facility] <=2 (missing) (missing) BLOOD CULTURE ID PCR 2025-07-16 14:29 [facility] -See Blood Culture result for susceptibiliti es. (missing) (missing) ABNORMAL LYMPHS % (MANUAL) 2025-07-16 14:29 [facility] 0 % (missing) BASOPHILS # (MANUAL) 2025-07-16 14:29 [facility] 0.0 10 3/ul (missing) EOSINOPHILS # (MANUAL) 2025-07-16 14:29 [facility] 0.0 10 3/ul (missing) MOXIFLOXACIN 2025-07-16 14:29 [facility] 0.12 (missing) (missing) LEVOFLOXACIN 2025-07-16 14:29 [facility] 0.5 (missing) (missing) BILIRUBIN,TOTAL 2025-07-16 14:29 [facility] 0.8 mg/dl As of May 2023 testing method has changed, this may include reference ranges. CREATININE 2025-07-16 14:29 [facility] 0.9 mg/dl As of May 2023 testing method has changed, this may include reference ranges. ALBUMIN/GLOBULIN RATIO 2025-07-16 14:29 [facility] 1.0 (missing) (missing) LYMPHOCYTES # (MANUAL) 2025-07-16 14:29 [facility] 1.0 10 3/ul (missing) MONOCYTES # (MANUAL) 2025-07-16 14:29 [facility] 1.4 10 3/ul (missing) TOTAL CELLS COUNTED 2025-07-16 14:29 [facility] 100 (missing) (missing) CHLORIDE 2025-07-16 14:29 [facility] mmol/l As of May 2023 testing method has changed, this may include reference ranges. AST ASPARTATE AMINOTRANSFERASE 2025-07-16 14:29 [facility] 11 iu/l As of May 2023 testing method has changed, this may include reference ranges. ALT ALANINE AMINOTRANSFERASE 2025-07-16 14:29 [facility] 11 iu/l As of May 2023 testing method has changed, this may include reference ranges. HGB - HEMOGLOBIN 2025-07-16 14:29 [facility] 12.4 g/dl (missing) BUN - BLOOD UREA NITROGEN 2025-07-16 14:29 [facility] 13 mg/dl As of May 2023 testing method has changed, this may include reference ranges. RED CELL DISTRIBUTION WIDTH 2025-07-16 14:29 [facility] 13.2 % (missing) SODIUM 2025-07-16 14:29 [facility] 135 mmol/l (missing) LACTIC ACID, VENOUS 2025-07-16 14:29 [facility] 2.1 mmol/l N As of May 2023 testing method has changed, this may include reference ranges. PROCALCITONIN 2025-07-16 14:29 [facility] 2.96 ng/ml Social History date description facility
[2025-07-21 17:35] LABS: ABNORMAL LYMPHS % (MANUAL) 0 %; BASOPHILS # (MANUAL) 0.0 10^3/uL (0-0.1); EOSINOPHILS # (MANUAL) 0.0 10^3/uL (0-0.7)
[2025-07-21 17:47] LABS: ALT ALANINE AMINOTRANSFERASE 15.0 IU/L (10-60); AST ASPARTATE AMINOTRANSFERASE 15.0 IU/L (10-42); BUN - BLOOD UREA NITROGEN 43.0 mg/dL (6-20); CARBON DIOXIDE - CO2 25.0 mmol/L (21-32); CREATININE 1.5 mg/dL (0.6-1.3); GFR - MDRD 34.0 (>89)
[2025-07-21 18:03] LABS: BAND NEUTROPHILS % (MANUAL) 3 %; LYMPHOCYTES # (MANUAL) 1.1 10^3/uL (1.5-3.5); LYMPHOCYTES % (MANUAL) 3 %; MONOCYTES # (MANUAL) 0.4 10^3/uL (0.0-1.0); NEUTROPHILS # (MANUAL) 35.3 10^3/uL (1.5-6.6); NUCLEATED RBC (MANUAL) 1 %
[2025-07-21 18:05] LABS: PLATELET ESTIMATE, MANUAL INCREASED (>450,000) (NORMAL); PLATELET MORPHOLOGY 1+ LARGE PLATELETS (NORMAL); RBC MORPHOLOGY (MULTIPLE) NORMAL APPEARANCE (NORMAL); WBC MORPHOLOGY (MULTIPLE) 1+ HYPERSEG NEUT (NORMAL)
--- NOTE | 2025-07-21 18:05 | XRAY Report ---
PROCEDURE: XR Chest 1V INDICATIONS: Sepsis TECHNIQUE: One view of the chest was acquired. COMPARISON: 07/16/2025. FINDINGS: Surgical changes and devices: None. Lungs and pleura: No pleural effusions or pneumothorax. No consolidation. Mediastinum: Mediastinal contours appear normal. Heart size is normal. Bones and chest wall: No suspicious bony lesions. Overlying soft tissues appear unremarkable. ABDOMEN: Large free air. IMPRESSION: Perforated viscus with large abdominal free air. Above discussed with Ashvin Eng MD at the time of dictation on 07/21/2025 at 1803 hours. Reviewed by: Sancho Álvarez MD on 07/21/2025 6:03 PM PDT Approved by: Sancho Álvarez MD on 07/21/2025 6:03 PM PDT Station ID: [id number]
[2025-07-21] MEDS: PIPERACILLIN/TAZOBACTAM 4.5 GM in SODIUM CHLORIDE 0.9% MINIBAG 100 ML IV STA (18:17)
--- NOTE | 2025-07-21 18:49 | CONSULTATION NOTE ---
Referring Provider Name of Referring Provider:: Albertina Consult Date: 07/21/25 Chief Complaint Chief Complaint Chief Complaint: Abdominal fullness/pain History of Present Illness Admitted From Admitted From:: ED History Obtained From Records Reviewed: Yes History obtained from: Patient Exam Limitations: None History of Present Illness HPI Comment/Other: Kamilla is a 74 year old female who was discharged from this facility on 07/18/25 for treatment for Covid, acute hypoxic respiratory failure, bilateral pulmonary emboli, and diabetes. She did well at home for a day, then on Friday noticed abdominal distension associated with abdominal pain and two lumps. She denies fever or chills. Her grand-daughter came to visit today and thought she looked ill and brought her to the ED. She was found to have a leukocytosis of 30K and free intra-abdominal air on CXR. During my interview, she appeared in NAD and complained of abdominal pain when the abdomen was palpated. She denies recent bowel motions. She was started on steroids for her Covid and is taking 6 mg Dexamethasone daily as an out-patient. She had a left kidney operation in the past as well as trauma surgery for blunt abdominal trauma. She denies having ventral hernias in the past. During her last admission she was found to have Strep pneumonia bacteremia and received Augmentin as an out-patient. [facility] Active Problems All Active Problems (Updated 07/21/25 @ 17:47 by Ashvin Eng MD) Bacteremia due to Streptococcus pneumoniae (Acute) Perforated abdominal viscus (Acute) Pulmonary embolus (Acute) Community acquired pneumonia (Acute) Acute hypoxemic respiratory failure (Acute) COVID (Acute) Hyperglycemia (Acute) Bronchitis (Acute) Medical History Medical History (Updated 07/21/25 @ 17:47 by Ashvin Eng MD) Breast cancer COPD (chronic obstructive pulmonary disease) Diabetes Social History Social History If you are a former smoker, when did you quit? (Date/Year): 2019 Number of Years Smoked: 50 How many cigarettes a day do you smoke? (20 cigarettes=1 Pk): 20 Second hand tobacco smoke exposure: No Do you dip or chew tobacco?: No Do you vape?: No Patient requests smoking cessation consult: No Initiate information on smoking cessation: No Living arrangement: At home Living Condition: Alone Level: Independent Do you feel safe in your home environment?: Yes History of physical, verbal, emotional, or financial abuse?: No Substance Use: denies use and former substance user POLST Patient has POLST: No Meds/Allgy Home Medications Ambulatory Orders Medication Instructions Recorded Confirmed zolpidem 5 mg tablet 10 mg (2 x 5 mg) PO HS 7 day s #7 08/18/22 07/17/25 tabs alprazolam 0.5 mg tablet 0.5 mg PO BID 02/21/2507/17 blood-glucose meter #1 ea 02/21/25 lancets 32 gauge and blood glucose #300 ea 02/21/25 strips kit ([employer] Blood Glucose System Refill) venlafaxine 75 mg capsule,extended 75 mg PO DAILY 06/1007/17/25 release 24 hr insulin glargine 100 unit/mL (3 15 unit subcut QPM 07/17/25 mL) subcutaneous pen (Lantus Solostar U-100 Insulin) Augmentin 875 mg-potassium 1 tab PO BID 3 days #6 tabs 07/18/25 clavulanate 125 mg tablet apixaban 5 mg (74 tabs) tablets in See Rx Instructions PO .COMPLEX 07/18/25 a dose pack ([employer] DVT-PE Treat #74 ea 30D Start) dexamethasone 4 mg tablet 6 mg (1.5 x 4 mg) PO DAILYWM 5 07/18/25 days #8 tabs Allergies Allergies Allergy/AdvReac Type Severity Reaction Status Date / Time No Known Drug Allergies Allergy Verified 07/21/25 17:00 Results Lab Results 07/21/25 17:15 07/21/25 17:15 Other Lab Results: Lab Results x24hrs 07/21/25 07/21/25 Range/Units 17:36 17:15 WBC 36.8 H* (4.8-10.8) x10^3/uL RBC 5.14 (4.20-5.40) 10^6/uL Hgb 15.0 (12.0-16.0) g/dL Hct 46.2 (37.0-47.0) % MCV 89.9 (81.0-99.0) fL MCH 29.2 (27.0-31.0) pg MCHC 32.5 (32.0-36.0) g/dL RDW 14.2 (12.0-15.0) % Plt Count 622 H (130-450) 10^3/uL MPV 10.4 (7.9-10.8) fL Neut # (Auto) Not Reportable Lymph # (Auto) Not Reportable Jerome # (Auto) Not Reportable Eos # (Auto) Not Reportable Baso # (Auto) Not Reportable Absolute Nucleated RBC Not Reportable Total Counted 100 Band Neuts % (Manual) 3 (0 - 10) % Abnorm Lymph % (Manual) 0 % Nucleated RBC % Not Reportable Neutrophils # (Manual) 35.3 H (1.5-6.6) 10^3/uL Lymphocytes # (Manual) 1.1 L (1.5-3.5) 10^3/uL Monocytes # (Manual) 0.4 (0.0-1.0) 10^3/uL Eosinophils # (Manual) 0.0 (0-0.7) 10^3/uL Basophils # (Manual) 0.0 (0-0.1) 10^3/uL Nucleated RBCs 1 % Differential Comment MANUAL DIFFERENTIAL WBC Morphology 1+ HYPERSEG NEUT (NORMAL) Platelet Estimate INCREASED (>450,000) (NORMAL) Platelet Morphology 1+ LARGE PLATELETS (NORMAL) RBC Morph Micro Appear NORMAL APPEARANCE (NORMAL) Sodium 134 L (135-145) mmol/L Potassium 4.1 (3.5-4.5) mmol/L Chloride 93 L (101-111) mmol/L Carbon Dioxide 25 (21-32) mmol/L Anion Gap 16.0 H (6-13) BUN 43 H (6-20) mg/dL Creatinine 1.5 H (0.6-1.3) mg/dL Estimated GFR (MDRD) 34 L (>89) Glucose 443 H (74-104) mg/dL Lactic Acid 4.3 H* (0.5-2.2) mmol/L Calcium 9.4 (8.5-10.3) mg/dL Total Bilirubin 1.2 H (0.2-1.0) mg/dL AST 15 (10-42) IU/L ALT 15 (10-60) IU/L Alkaline Phosphatase 113 (42-121) IU/L Total Protein 7.5 (6.4-8.9) g/dL Albumin 3.2 (3.2-5.5) g/dL Globulin 4.3 H (2.1-4.2) g/dL Albumin/Globulin Ratio 0.7 L (1.0-2.2) Diagnostic Imaging Results Diagnostic Imaging Results Comments: CT abd/pelvis - Free intra-abdominal air with two subcutaneous ventral pockets of air in the midline of the abdominal wall. Possible duodenal ulcer with adjacent free air. Sigmoid diverticulosis - ? perforation CXR - free intra-abdominal air Lactic acid 4.3; Glu 443; Cr 1.5 Review of Systems Constitutional Reports: Fatigue and Malaise Cardiovascular Reports: shortness of breath with exertion Respiratory Reports: Shortness of breath and Cough Gastrointestinal Reports: Abdominal pain and Abdominal distention Endocrine Reports: Fatigue Exam Exam Vital Signs: Vital Signs x48h Temp Pulse Resp BP Pulse Ox 07/21/25 17:30 117 H 36 H 150/95 H 93 07/21/25 17:17 118 H 35 H 166/99 H 92 07/21/25 16:57 36.9 C 130 H 24 128/90 93 Constitutional normal general appearance HENMT normocephalic, head/scalp atraumatic, hearing grossly normal bilaterally and oropharynx normal Eyes PERRL, EOMs intact bilaterally and no scleral icterus Neck/C-Spine trachea midline Respiratory breath sounds equal bilaterally and clear to auscultation bilaterally Cardiovascular Sinus tachycardia Gastrointestinal Abdominal distension with two subcutaneous masses that are non-tender. No peritoneal irritation. Extremities normal to inspection Neurology no focal motor deficit noted and speech normal Psychiatry mental status grossly normal, thought process normal, cooperative and affect normal Skin skin color normal, no rash and no ecchymosis noted Conclusion/Plan Problem List (1) Perforated abdominal viscus: Plan: Not certain of the etiology but may be a perforated duodenal ulcer given the lack of sepsis symptoms. Her use of steroids may also be masking a perforated sigmoid diverticula. Since there is little chance of transfer to a tertiary facility in a timely fashion, I have recommended emergency exploratory laparotomy with source control of the infection which may require colectomy and colostomy. The possibility of damage control surgery with an open abdomen was also presented to the patient and her family Plan 1) IV fluid resuscitation 2) IV Zosyn 3) KCentra 4) Exploratory laparotomy with source control of the infection Consent: Kamilla and her family have been counseled for the procedure, it's indications, risks, benefits and expected outcome as well as alternative therapies. We specifically discussed risks associated with anesthesia, bleeding, infection, injury to surrounding structures which may require additional surgery, the possible need for damage control surgery and colostomy, CVA, recurrent or worsening PE, and the need for ICU post-op care which may demand the use of a mechanical ventilator. We also discussed the possible need for a blood transfusion with its risks and benefits. Kamilla and her family understand, agree, and consent to the proposed operative strategy and request that we proceed with the procedure as outlined in our discussion. Anatoliy Swann MD, [facility] General Surgery Service Lab Results 07/21/25 17:15 07/21/25 17:15
--- NOTE | 2025-07-21 18:55 | CT Report ---
PROCEDURE: CT Abdomen/Pelvis W INDICATIONS: ventral hernias, ? incarcerated, IV only CONTRAST: OMNI 300, 00ML TECHNIQUE: After the administration of intravenous contrast, a CT scan of the abdomen and pelvis was performed. Images were recorded and evaluated at appropriate window settings. Reformats: coronal and sagittal. For radiation dose reduction, the following was used: automated exposure control, adjustment of mA and/or kV according to patient size. COMPARISON: None. FINDINGS: Image quality: Diagnostic. Lower chest: Unremarkable. Liver: No solid mass. Gallbladder: Absent Biliary tree: No intrahepatic or extrahepatic dilation, accounting for age. Spleen: No splenomegaly. Pancreas: No pancreatic ductal dilation. Adrenals: No adrenal nodule. Kidneys and ureters: No hydronephrosis. No renal cystic lesion which requires follow up. No solid mass. Stomach, bowel and peritoneum: There is extensive pneumoperitoneum with a very large amount of free air present. Based on the pattern of the extraluminal gas, the origin of the perforation may be perforated sigmoid diverticulitis. There is extensive diverticulosis of the sigmoid and there is air that looks like it tracks from a diverticulum outside of the lumen. That being said, the sigmoid is relatively normal in wall caliber and is relatively uninflamed. As opposed to the sigmoid, there are multiple abnormal loops of jejunum present with wall thickening and dilatation, and there is air traveling amongst the jejunal loops. The perforation may be a perforated jejunal loop or perforation of the sigmoid. The abnormal jejunum may be related to resultant peritonitis or may potentially be related to bowel ischemia. There is mild extraluminal fluid which contains gas within it. Lymph nodes: No central or retroperitoneal adenopathy. Vessels: No infrarenal aortic aneurysm. Patent portal vein. Celiac, SMA, and MARINA are patent. PELVIS Reproductive organs: Unremarkable. Bladder: No abnormal wall thickening. Pelvic lymph nodes: No pelvic adenopathy by size criteria. Bones: No aggressive osseous abnormality. Other: No significant ventral or inguinal hernia. IMPRESSION: 1. There is extensive free air present. 2. The origin of the free air is felt to either be perforation of the sigmoid or perforation of the jejunum. 3. The sigmoid colon has extensive diverticuli. However, does not appear significantly inflamed. There does appear to be air that may track from a diverticulum outside of the sigmoid. 4. As opposed to the sigmoid, the jejunum is quite abnormal in appearance. It has wall thickening and dilatation of bowel loops. This may potentially represent ischemic bowel or peritonitis from perforated viscus with associated inflammation of the bowel wall and ileus. 5. No findings suggest that the perforation is related to peptic ulcer disease. 6. Ascitic fluid is likely infected fluid. Reviewed by: Sancho Álvarez MD on 07/21/2025 6:53 PM PDT Approved by: Sancho Álvarez MD on 07/21/2025 6:53 PM PDT Station ID: [id number]
[2025-07-21] MEDS: HUM PROTHROMBIN CPLX(PCC)-LANS 2,000 UNIT IV STA (19:08)
[2025-07-21] MEDS: INSULIN REGULAR, HUMAN 300 UNIT/3 ML PEN IVP STA (19:08)
[2025-07-21] MEDS ORDERED: ROCURONIUM 50 MG/5 ML VIAL ONE ×2 (19:12→19:21)
[2025-07-21] MEDS ORDERED: PROPOFOL 200 MG/20 ML VIAL IVP ONE (19:12)
[2025-07-21] MEDS ORDERED: LIDOCAINE-PF 2% 10 ML AMP SUBQ ONE (19:12)
--- OUTSIDE RECORDS SUMMARY | 2025-07-21 19:15 | EXTERNAL MEDICAL SUMMARY RPT | Continuity of Care Document ---
Author Organization [facility] Address [address] [place] [id number] Phone Problems date description facility 2025-07-16 15:03 Shortness of breath [facility] 2025-07-16 15:03 Dizziness and giddiness [facility] 2025-07-16 15:03 Other abnormal glucose [facility] 2025-07-16 15:03 Hyperglycemia, unspecified [facility] 2025-07-16 17:36 Acute respiratory failure with hypoxia [facility] 2025-07-16 17:36 [facility] 2025-07-16 18:39 Type 2 diabetes mellitus withou t complications [facility] 2025-07-16 18:39 Acute respiratory failure with hypoxia [facility] 2025-07-16 18:39 [facility] 2025-07-17 10:29 Type 2 diabetes mellitus withou t complications [facility] 2025-07-17 10:29 Acute respiratory failure with hypoxia [facility] 2025-07-17 10:29 [facility] 2025-07-18 10:14 Type 2 diabetes mellitus withou t complications [facility] 2025-07-18 10:14 Other pulmonary embolism withou t acute cor pulmonale [facility] 2025-07-18 10:14 Pneumonia, unspecified organism [facility] 2025-07-18 10:14 Acute respiratory failure with hypoxia [facility] 2025-07-18 10:14 [facility] 2025-07-18 10:21 Type 2 diabetes mellitus withou t complications [facility] 2025-07-18 10:21 Other pulmonary embolism withou t acute cor pulmonale [facility] 2025-07-18 10:21 Pneumonia, unspecified organism [facility] 2025-07-18 10:21 Acute respiratory failure with hypoxia [facility] 2025-07-18 10:21 [facility]-[address] [place] [id number] 2025-07-18 10:31 Type 2 diabetes mellitus withou t complications [facility] 2025-07-18 10:31 Other pulmonary embolism withou t acute cor pulmonale [facility] 2025-07-18 10:31 Pneumonia, unspecified organism [facility] 2025-07-18 10:31 Acute respiratory failure with hypoxia [facility] 2025-07-18 10:31 [facility] [place] [id number] 2025-07-18 13:28 Type 2 diabetes mellitus withou t complications [facility] 2025-07-18 13:28 Other pulmonary embolism withou t acute cor pulmonale [facility] 2025-07-18 13:28 Pneumonia, unspecified organism [facility] 2025-07-18 13:28 Acute respiratory failure with hypoxia [facility] 2025-07-18 13:28 [facility]-[address] [place] [id number] 2025-07-21 07:05 Type 2 diabetes mellitus withou t complications [facility] 2025-07-21 07:05 Other pulmonary embolism withou t acute cor pulmonale [facility] 2025-07-21 07:05 Pneumonia, unspecified organism [facility] 2025-07-21 07:05 Acute respiratory failure with hypoxia [facility] 2025-07-21 07:05 Cough, unspecified [facility] 2025-07-21 07:05 Fever, unspecified [facility] 2025-07-21 07:05 Other fatigue [facility] 2025-07-21 07:[address] Results/Labs test date facility value unit notes Result panel 1 BLOOD CULTURE ID PCR 2025-07-16 14:29 [facility] (missing) (missing) (missing) CULTURE, BLOOD #1 2025-07-16 14:29 [facility] (missing) (missing) (missing) BENZYLPENICILLIN 2025-07-16 14:29 [facility] <=0.06 (missing) (missing) TIGECYCLINE 2025-07-16 14:29 [facility] [...] 3/ul (missing) MONOCYTES # (MANUAL) [facility]-07-16 [facility] 1.4 10 3/ul (missing) TOTAL CELLS COUNTED 2025-07-16 14:29 [facility] 100 (missing) (missing) CHLORIDE 2025-07-16 14:29 [facility] 101 mmol/l As of May 2023 testing method has changed, this may include reference ranges. AST ASPARTATE AMINOTRANSFERASE 2025-07-16 14:29 [facility] 11 iu/l As of May 2023 testing method has changed, this may include reference ranges. ALT ALANINE AMINOTRANSFERASE 2025-07-16 14:29 [facility] 11 iu/l As of May 2023 testing method has changed, this may include reference ranges. HGB - HEMOGLOBIN 2025-07-16 14:29 [facility] 12.4 g/dl (missing) BUN - BLOOD UREA NITROGEN 2025-07-16 14:29 [facility] 13 mg/dl As of May 2023 testing method has changed, this may include reference ranges. RED CELL DISTRIBUTION WIDTH 2025-07-16 14:29 [facility] 13.2 % (missing) SODIUM 2025-07-16 14:29 [facility] 135 mmol/l (missing) LACTIC ACID, VENOUS 2025-07-16 14:29 [facility] 2.1 mmol/l N As of May 2023 testing method has changed, this may include reference ranges. PROCALCITONIN 2025-07-16 14:29 [facility] 2.96 ng/ml Social History date description facility
[2025-07-21] MEDS ORDERED: PHENYLEPHRINE 10 MG/ML VIAL ONE (19:17)
[2025-07-21] MEDS ORDERED: fentaNYL 100 MCG/2 ML VIAL ONE (19:22)
--- NOTE | 2025-07-21 19:33 | ANESTHESIA PROCEDURE NOTE ---
Pre-Anesthesia VS, & Labs Diagnosis Surgical Diagnosis:: perforated viscus Procedure Procedure: exploratory laparotomy, treatment of perforated viscus, possible bowel resection Vitals Vital Signs: Temp Pulse Resp BP Pulse Ox 36.9 C 108 H 20 123/82 92 07/21/25 16:57 07/21/25 18:15 07/21/25 18:15 07/21/25 18:15 07/21/25 18:15 NPO NPO: Other (about 2pm or earlier last food, vomited) Is Patient ?: No Lab Results Current Lab Results: Laboratory Tests 07/21/25 17:36: Lactic Acid 4.3 H* 07/21/25 17:15: WBC 36.8 H*, RBC 5.14, Hgb 15.0, Hct 46.2, MCV 89.9, MCH 29.2, MCHC 32.5, RDW 14.2, Plt Count 622 H, MPV 10.4, Neut # (Auto) Not Reportable, Lymph # (Auto) Not Reportable, [place] # (Auto) Not Reportable, Eos # (Auto) Not Reportable, Baso # (Auto) Not Reportable, Absolute Nucleated RBC Not Reportable, Total Counted 100, Band Neuts % (Manual) 3, Abnorm Lymph % (Manual) 0, Nucleated RBC % Not Reportable, Neutrophils # (Manual) 35.3 H, Lymphocytes # (Manual) 1.1 L, Monocytes # (Manual) 0.4, Eosinophils # (Manual) 0.0, Basophils # (Manual) 0.0, Nucleated RBCs 1, Differential Comment MANUAL DIFFERENTIAL, WBC Morphology 1+ HYPERSEG NEUT, Platelet Estimate INCREASED (>450,000), Platelet Morphology 1+ LARGE PLATELETS, RBC Morph Micro Appear NORMAL APPEARANCE, Sodium 134 L, Potassium 4.1, Chloride 93 L, Carbon Dioxide 25, Anion Gap 16.0 H, BUN 43 H, C reatinine 1.5 H, Estimated GFR (MDRD) 34 L, Glucose 443 H, Calcium 9.4, Total Bilirubin 1.2 H, AST 15, ALT 15, Alkaline Phosphatase 113, Total Protein 7.5, Albumin 3.2, Globulin 4.3 H, Albumin/Globulin Ratio 0.7 L 07/21/25 17:15 07/21/25 17:15 Meds/Allgy Home Medications Ambulatory Orders Medication Instructions Recorded Confirmed zolpidem 5 mg tablet 10 mg (2 x 5 mg) PO HS 7 day s #7 08/18/22 07/17/25 tabs alprazolam 0.5 mg tablet 0.5 mg PO BID 02/21/2507/17 blood-glucose meter #1 ea 02/21/25 lancets 32 gauge and blood glucose #300 ea 02/21/25 strips kit ([employer] Blood Glucose System Refill) venlafaxine 75 mg capsule,extended 75 mg PO DAILY 06/1007/17/25 release 24 hr insulin glargine 100 unit/mL (3 15 unit subcut QPM 07/17/25 mL) subcutaneous pen (Lantus Solostar U-100 Insulin) Augmentin 875 mg-potassium 1 tab PO BID 3 days #6 tabs 07/18/25 clavulanate 125 mg tablet apixaban 5 mg (74 tabs) tablets in See Rx Instructions PO .COMPLEX 07/18/25 a dose pack ([employer] DVT-PE Treat #74 ea 30D Start) dexamethasone 4 mg tablet 6 mg (1.5 x 4 mg) PO DAILYWM 5 07/18/25 days #8 tabs Allergies Allergies Allergy/AdvReac Type Severity Reaction Status Date / Time No Known Drug Allergies Allergy Verified 07/21/25 17:00 [facility] Active Problems All Active Problems (Updated 07/21/25 @ 17:47 by Ashvin Eng MD) Bacteremia due to Streptococcus pneumoniae (Acute) Perforated abdominal viscus (Acute) Pulmonary embolus (Acute) Community acquired pneumonia (Acute) Acute hypoxemic respiratory failure (Acute) COVID (Acute) Hyperglycemia (Acute) Bronchitis (Acute) Medical History Medical History (Updated 07/21/25 @ 17:47 by Ashvin Eng MD) Breast cancer COPD (chronic obstructive pulmonary disease) Diabetes Social History Social History If you are a former smoker, when did you quit? (Date/Year): 2018 Number of Years Smoked: 50 How many cigarettes a day do you smoke? (20 cigarettes=1 Pk): 20 Second hand tobacco smoke exposure: No Do you dip or chew tobacco?: No Do you vape?: No Patient requests smoking cessation consult: No Initiate information on smoking cessation: No Living arrangement: At home Living Condition: Alone Level: Independent Do you feel safe in your home environment?: Yes History of physical, verbal, emotional, or financial abuse?: No Substance Use: denies use and former substance user POLST Patient has POLST: No Anesthesia Exam (Expanded) Exam General: Alert, Oriented x3, Cooperative and Moderate distress Dental: WNL Mouth Opening: Greater than 4 Fingerbreadths Neck Mobility: Normal Mallampati classification: III Thyromental Distance: greater than 6 cm Respiratory: Respiratory distress, Decreased breath sounds and Accessory muscle use Cardiovascular: Regular rate Exam Exam Vital Signs: Vital Signs x48h Temp Pulse Resp BP Pulse Ox 07/21/25 18:15 108 H 20 123/82 92 07/21/25 17:30 117 H 36 H 150/95 H 93 07/21/25 17:17 118 H 35 H 166/99 H 92 07/21/25 16:57 36.9 C 130 H 24 128/90 93 Plan Problem List (1) Perforated abdominal viscus: Plan: Not certain of the etiology but may be a perforated duodenal ulcer given the lack of sepsis symptoms. Her use of steroids may also be masking a perforated sigmoid diverticula. Since there is little chance of transfer to a tertiary facility in a timely fashion, I have recommended emergency exploratory laparotomy with source control of the infection which may require colectomy and colostomy. The possibility of damage control surgery with an open abdomen was also presented to the patient and her family Plan 1) IV fluid resuscitation 2) IV Zosyn 3) KCentra 4) Exploratory laparotomy with source control of the infection Consent: Kamilla and her family have been counseled for the procedure, it's indications, risks, benefits and expected outcome as well as alternative therapies. We specifically discussed risks associated with anesthesia, bleeding, infection, injury to surrounding structures which may require additional surgery, the possible need for damage control surgery and colostomy, CVA, recurrent or worsening PE, and the need for ICU post-op care which may demand the use of a mechanical ventilator. We also discussed the possible need for a blood transfusion with its risks and benefits. Kamilla and her family understand, agree, and consent to the proposed operative strategy and request that we proceed with the procedure as outlined in our discussion. Anatoliy Swann MD, [facility] General Surgery Service Plan Anesthesia Type: General Consent for Procedure(s) Verified and Reviewed: Yes Code Status: Attempt Resuscitation ASA Classification ASA classification: 4-Incapacitating disease Is this case an emergency?: Yes
[2025-07-21] MEDS ORDERED: LIDOCAINE 1%-EPI 1:100000 20 ML MDV ONE (19:36)
[2025-07-21] MEDS ORDERED: BUPIVACAINE 0.5% PF 10 ML VIAL ONE (19:37)
[2025-07-21] MEDS ORDERED: ACETAMINOPHEN 1,000 MG/100 ML 1,000 MG/100 ML BAG IV ONE (22:12)
--- NOTE | 2025-07-21 22:31 | HISTORY & PHYSICAL EXAMINATION ---
Chief Complaint Chief Complaint Chief Complaint: Lumps on stomach, vomiting, COVID-positive. History of Present Illness Admitted From Admitted From:: Operating room History Obtained From Records Reviewed: Previous admission History obtained from: Medical records, patient unable to give history Exam Limitations: Patient intubated and sedated History of Present Illness HPI Comment/Other: 74-year-old female with recurrent breast cancer status post bilateral mastectomy now in remission history of COPD, type 2 diabetes, laparotomy after trauma and nephrectomy presented to the emergency department this evening feeling poorly. She had been admitted to our institution for several days on July 16 for community-acquired pneumonia with COVID infection discharged to home with subsequent blood culture positivity for strep pneumo. Workup in the emergency department showed large amount of free air under bilateral diaphragms therefore general surgery was consulted emergently after CT showing hollow viscus perforation she was taken to the operating room for laparotomy. We are asked to assume care of this critically ill patient in the ICU. She is unable to give a history. Meds/Allgy Home Medications Ambulatory Orders Medication Instructions Recorded Confirmed zolpidem 5 mg tablet 10 mg (2 x 5 mg) PO HS 7 day s #7 08/18/22 07/17/25 tabs alprazolam 0.5 mg tablet 0.5 mg PO BID 02/21/2507/17 blood-glucose meter #1 ea 02/21/25 lancets 32 gauge and blood glucose #300 ea 02/21/25 strips kit (NeurelisuLink Blood Glucose System Refill) venlafaxine 75 mg capsule,extended 75 mg PO DAILY 04/06/1007/17/25 release 24 hr insulin glargine 100 unit/mL (3 15 unit subcut QPM 07/17/25 mL) subcutaneous pen (Lantus Solostar U-100 Insulin) Augmentin 875 mg-potassium 1 tab PO BID 3 days #6 tabs 07/18/25 clavulanate 125 mg tablet apixaban 5 mg (74 tabs) tablets in See Rx Instructions PO .COMPLEX 07/18/25 a dose pack (Eliquis DVT-PE Treat #74 ea 30D Start) dexamethasone 4 mg tablet 6 mg (1.5 x 4 mg) PO DAILYWM 5 07/18/25 days #8 tabs Allergies Allergies Allergy/AdvReac Type Severity Reaction Status Date / Time No Known Drug Allergies Allergy Verified 07/21/25 17:00 PFSH Active Problems All Active Problems (Updated 07/21/25 @ 22:32 by DANIA De La Torre) RICCARDO (acute kidney injury) (Acute) Sepsis (Acute) Perforation of sigmoid colon due to diverticulitis (Acute) Bacteremia due to Streptococcus pneumoniae (Acute) Perforated abdominal viscus (Acute) Pulmonary embolus (Acute) Community acquired pneumonia (Acute) Acute hypoxemic respiratory failure (Acute) COVID (Acute) Hyperglycemia (Acute) Bronchitis (Acute) Medical History Medical History (Updated 07/21/25 @ 22:32 by DANIA De La Torre) Breast cancer COPD (chronic obstructive pulmonary disease) Diabetes Social History Social History Smoking Status: Smoker current status unk If you are a former smoker, when did you quit? (Date/Year): 2018 Number of Years Smoked: 50 How many cigarettes a day do you smoke? (20 cigarettes=1 Pk): 20 Second hand tobacco smoke exposure: No Do you dip or chew tobacco?: No Do you vape?: No Patient requests smoking cessation consult: No Initiate information on smoking cessation: No Living arrangement: At home Living Condition: Alone Level: Independent Do you feel safe in your home environment?: Yes History of physical, verbal, emotional, or financial abuse?: No Substance Use: denies use and former substance user POLST Patient has POLST: Yes POLST CPR Status: Attempt Resuscitation (CPR) Level of Medical Intervention: Full Treatment Review of Systems Status of ROS: unobtainable due to endotracheal tube Prior Level of Functionality: Unclear. According to what is in the chart she lives alone Exam Exam Vital Signs: Vital Signs x48h Temp Pulse Resp BP Pulse Ox 07/21/25 19:45 102 H 27 H 07/21/25 19:30 99 30 H 181/101 H 07/21/25 19:15 100 34 H 07/21/25 19:00 101 H 29 H 07/21/25 18:45 104 H 07/21/25 18:15 108 H 20 123/82 07/21/25 17:30 117 H 36 H 150/95 H 07/21/25 17:17 118 H 35 H 166/99 H 07/21/25 16:57 36.9 C 130 H 24 128/90 93 Constitutional Intubated and sedated unresponsive HENMT normocephalic and oropharynx normal Eyes conjunctivae normal Neck/C-Spine trachea midline Lymph no lymphadenopathy noted Chest Bilateral mastectomy Respiratory breath sounds equal bilaterally On ventilator no adventitious breath sounds Cardiovascular Tachycardia to the low 100s, no murmur Gastrointestinal Midline surgical dressing in place. Colostomy on the left side of the abdomen with scant bloody drainage in the bag. NERISSA in the abdomen with a large amount of irrigant mixed with blood Extremities normal to inspection and normal to palpation No edema noted. No venous stasis skin changes Neurology Sedated, paralyzed not responsive to pain at this time. Psychiatry GCS 3 T Skin skin color normal Sepsis Event Note (H) Evaluation Current Stage of Sepsis: Septic shock Possible source of Sepsis: positive GI tract/intra-abdominal Confirmed Source and Organism (if known) of Sepsis: perforated colon Sepsis Associated Organ Dysfunction: leukocytosis, fever, resp failure, RICCARDO Sepsis Criteria Sepsis Criteria: Recorded Temperature greater than 38.3C or Less than 36C, Recorded Heart Rate greater than 90 bpm, Recorded Respiratory Rate greater than 20, Respiratory: Increasing oxygen requirements, WBC count greater than 10% bands, WBC count greater than 12,000 or less than 4000, MAP less than 65 mmHg, Renal: urine output less than 0.5ml/kg/hr for 2 hours or creatinine gr and Metabolic: lactate > 2 mmol/L Conclusion/Plan Problem List (1) Sepsis: Plan: Septic shock. Presents to the emergency department with complaints of vomiting lumps on her abdomen with a recent history of being COVID-positive. Initial chest x-ray in the emergency department showed free air under the diaphragm bilaterally. Vital signs initially showed tachycardia and tachypnea with normal oxygen saturations on room air and no hypotension. Patient did deteriorate while she was in the emergency department and just prior to going to the operating room was starting to have some respiratory failure. Her labs showed an acute kidney injury, elevated lactate and a profound leukocytosis. CT was positive for perforation of hollow viscus. General surgery was contacted emergently from the emergency department. she was taken to the operating room immediately. Dr. Swann found a perforated sigmoid diverticulitis and performed a Aly's procedure. Medicine service will manage this patient's sepsis and associated organ dysfunction. I have started this patient on Zosyn, I will trend her lactate. I will follow her white blood cell count. She will be supported for her respiratory failure on a ventilator per protocol.At this time she is not showing hypotension. But with propofol for sedation and fentanyl for pain she may. I will start her on Levophed as needed. (2) Perforation of sigmoid colon due to diverticulitis: Plan: Postop day 0 exploratory laparotomy with Armando's procedure and washout of abdomen. Colostomy in place. NERISSA draining bloody fluid. 400cc UOP during the case. 3.5L crystalloid in, 150cc EBL. Discussed with Dr Swann. perforation was subacute. much inflammatory tissue within the abdomen. thoroughly washed out. Her abdominal fascia is closed, but of poor quality. I will consider application of wound vac in the near term to protect the wound and promote healing. Dr Valles of gen surg to take over as assembler surgical garment in the AM, will discuss with her. I have started her on Zosyn. I will trend her lactate. repeat lactate now and in the AM. (3) RICCARDO (acute kidney injury): Plan: Baseline creatinine is between 0.7 and 0.9. She presents with a creatinine of 1.5 indicating that her creatinine is roughly double that of baseline. I believe this is acute kidney injury secondary to overwhelming sepsis of abdominal origin. She is now with surgical source control. She received 3.5 L of fluid in the operating room which should be sepsis dosing roughly. I will continue her on 100 mL/h of LR. I will avoid nephrotoxic medications is much as possible. We will keep her MAP greater than 65 in order to promote good endorgan perfusion and I will check her renal function with a BMP in the a.m. (4) Pulmonary embolus: Plan: CTA 07/16 with subsegmental PE bilat lower lobes, no signs of R heart strain (but another reason to get an echo this admit). Also seen was LLL infiltrate. followup venous duplex bilateral lower ext showed no DVT but there isRight greater saphenous vein thrombus. Typically greater saphenous vein thrombus is treated as a DVT if it is close to the saphenofemoral junction (within 3 cm) as this poses a higher risk of progression to DVT or PE. Given that she already has a PE, we will be restarting her Eliquis treatment at about 48 hours postop. As resuming Eliquis prior to this poses a great risk for bleeding. I have asked nursing not to use SCD on the right lower extremity. (5) Diabetes: Plan: Aimed to keep blood sugars less than 180. Her diabetes therapy at home consists of Lantus insulin 15 units every evening. Last hemoglobin A1c several days ago was 6.3% indicating good control. I have placed her on sliding scale insulin and we will see how her blood sugars trend and guide further therapy from that point. She came to us on dexamethasone 6 mg daily. This was prescribed at hospital discharge for 5 days. I do not think she has been on steroids long enough to cause adrenal insufficiency, however should she begin to have hypotension which is resistant to pressors I would consider addressing hydrocortisone to treat her for adrenal failure in the setting of acute illness. At this point I am going to hold further steroids in favor of good tissue healing. (6) Bacteremia due to Streptococcus pneumoniae: Plan: Previous admission from 07/16/2025 to 07/18/2025. Blood cultures were drawn this admission. Patient had a pneumonia, community-acquired. She finished a 3-day course of azithromycin and was discharged home on Augmentin. Her blood cultures subsequently were positive for strep pneumo. She was called by the emergency department but unfortunately missed the calls because she was sleeping due to feeling so poorly. This Zosyn prescribed for her intra-abdominal infection should cover her strep pneumo bacteremia. Duration of treatment is dependent upon her overall clincal picture. She will eventually need echocardiogram to rule out valvular vegetation for her gram pos bacteremia. (7) Community acquired pneumonia: Plan: CTA of the chest on July 16 does show a left lower lobe infiltrate. She was prescribed Augmentin upon discharge from the hospital. I am continuing Zosyn which should be adequate coverage for community-acquired pneumonia. She has received azithromycin x 3 days at the time of her previous hospitalization. (8) COVID: Plan: Which was positive for COVID on 16 July. We will consult with our recruiter specialist she is about 9 days post onset of symptoms today so it is likely reasonable that she can come off COVID precautions in the near future. Plan I have spent 90 minutes in the care of this patient today. This includes time [id number], review and ordering of diagnostic imaging and laboratory studies and consultation with other providers. Monitoring the patient's signs symptoms, evaluation of medication effectiveness and patient's response to treatment. Lab Results Lab results reviewed: Yes 07/21/25 17:15 07/21/25 17:15 Diagnostic Imaging Results Diagnostic Imaging Results: positive Final report reviewed EKG Results EKG Interpreted Independently: Yes EKG Comparison: No prior EKG EKG Findings: sinus tachycardia Core Measures Anticipated LOS I expect patient to be DC'd or transferred within 96 hours.: Yes DVT/VTE - Prophylaxis VTE/DVT Device ordered at admit?: Yes Not Ordered - Medical Reason: Contraindicated (Left lower extremity onlyThere is a right greater saphenous vein DVT) VTE/DVT Prophylaxis med ordered at admit?: Yes
[2025-07-21] MEDS ORDERED: ALBUTEROL NEB 2.5 MG/3 ML INH PRN (22:50)
--- NOTE | 2025-07-21 23:12 | OPERATIVE REPORT ---
Operative Report General Admit Date: 07/21/25 Procedure Data: Operation Date: 07/21/25 19:30 Proposed Procedures p Exploratory Laparotomy(Not Applicable) - Anatoliy Swann MD Actual Procedures p Exploratory Laparotomy, SIGMOID COLON RESECTION, COLOSTOMY(Not Applicable) - Anatoliy Swann MD Pre-Op Diagnosis: PERFORATED STOMACH OR INTESTINE Anesthesia Type General Case Staff Anesthesia Provider: Stacy Lyles Case Times Procedure Start: 07/21/25 20:17 Procedure End: 07/21/25 22:40 Time out: 07/21/25 20:16 Other Other Information/Narrative: PROC DATE: 07/21/2025 PREOP DIAG: Acute abdomen POSTOP DIAG: Perforated sigmoid diverticulitis SURGEON: Anatoliy Swann MD, FACS ASSISTANTS: boiler/chiller technician OPERATION: Sigmoid colectomy; End Descending Colostomy; Partial omentectomy; Pelvic drain placement; Abdominal washout ANESTHESIA: General endotracheal. ESTIMATED BLOOD LOSS: 150 mL. DRAINS: Armijo urinary catheter; OGT; Mehran pelvic drain SPECIMEN: Anerobic, aerobic, fungal peritoneal cultures; Sigmoid colon; Segment of ischemic omentum COMPLICATIONS: None DESCRIPTION OF OPERATIVE FINDINGS: Normal stomach and duodenum; Purulent peritonitis; Perforated sigmoid diverticulitis with pelvic and interloop abscesses; 6 cm x 6 cm ischemic segment of omentum PROCEDURE: After consent for the procedure was obtained, the patient was brought to the operating room, where a surgical time out was performed ind icating the patient and the procedure to be performed. In the supine position general endotracheal anesthesia was administered. A Armijo catheter was placed and venous compression devices were placed on the lower extremities. An oral gastric tube was placed. The abdomen was clipped of hair, prepped with alcohol- free chloroprep and draped in a sterile fashion. A midline incision was used to gain exposure to the peritoneal cavity, which was explored and found to contain the above noted findings. Multiple small ventral hernia defects were identified and incorporated into the midline fascial incision. Cultures were taken of the purulence. A sigmoid colectomy with end descending colon colostomy was planned. This was first performed by detaching the inflammatory portion of the sigmoid from the left lateral abdominal wall. The sigmoid continued deep into the pelvis where it double backed on itself to enter the abdominal cavity in the RLQ and then looped again inferiorly towards the rectum. This area of sigmoid was the most intensly inflamed and surrounded by purulence in a contained abscess. In order to obtain source control, this infected colonic segment required dissection from the lower pelvis. This dissection was tedious due to the dense inflammatory reaction which caused significant adhesions. Blunt and sharp dissection successfully freed the sigmoid from its surrounding structures. Once the sigmoid was dissected out of the pelvis, I was then able to identify the normal sigmoid colon distal to the segment containing the perforated diverticulitis. The sigmoid colon was transected proximal to the perforation in an area of healthy colon using a JHON stapling device. The mesentery to the sigmoid colon was then taken down with a combination of a LigaSure device and 2-0 silk ligatures. I did not attempt to locate the left ureter in this markedly inflamed tissue but stayed close to the colon wall during this portion of the procedure. The distal sigmoid colon, where there were no diverticula and where the colon was healthy, was then transected with a Contour stapling device using 3.5 mm ryan. The specimen was removed from the field and a moistened pack placed into the pelvis. The small bowel was then followed from the ligament of Treitz to the cecum and multiple interloop abscess were encountered and drained. A large abscess was between the distal aspect of the omentum and the small bowel. Once this was drained, the tip of the omentum appeared ischemic and was excised using a Ligature device. Multiple areas of the small bowel demonstrated fibropurulent material on the serosal surface which was gently removed where possible. A small small bowel serosal tear was identified and oversewn using two 3-0 silk seromuscular sutures. No unintentional enterotomies occured during the procedure. The stomach and duodenum were normal. There was minimal purulence over the liver and spleen. An end descending colostomy was then planned. The white line of Toldt was incised proximally. This allowed mobilization of the descending colon such that it would emerge without tension through a LLQ stoma site. A lummi of skin was removed from the LLQ at the planned stoma site. Dissection through subcutaneous tissue was performed with electrocautery until the rectus fascia was identified. A cruciate incision was made in the rectus fascia and the rectus muscle fibers were split. The peritoneum was incised and the stomal opening was enlarged to two finger-breadths. The stapled end of the descending colon was brought through the stomal opening in the abdominal wall and secured in place with Standish clamps. Attention was re-directed to the pelvis. Bleeding from the previous dissection site was minimal. The rectal stump staple line was intact and the edges were marked with two separate 2-0 Proline sutures. The area was irrigated with warm sterile saline. The irrigant was aspirated. A 19 Mehran drain was placed into the pelvis, brought out through a separate stab incision in the RLQ and secured to the skin with a 2-0 silk suture suture. A search for made for sponges, packs, instruments and needles. None were found. The sponge, pack, instrument and needle count were relayed to me as being correct. This count was performed twice. The remaining omentum was used to cover the small bowel. The abdominal wall was then closed with a running double-stranded 0 PDS for the linea alba encorporating all of the small fascial defects into the closure. The fascia was markedly attenuated and this combined with her intra-abdominal infection, prior steroid use, and the expected use of post-op mechanical ventilation places her at high risk for fascial dehiscence. The subcutaneous tissue irrigated and then packed with a saline dampened Kerlix rolled gauze. The ostomy was matured using interrupted 4-0 Vicryl sutures. An ostomy appliance was placed on the abdominal wall. Dressings were placed over the incision line. The patient was brought to ICU stable but guarded condition. Mny thanks to the Medical Hospitalist for the immediate post-op care of this critically ill patient.
[2025-07-21] MEDS: PROPOFOL 1000 MG/100 ML 1,000 MG/100 ML BOTTLE IV SCH (23:33)
[2025-07-21] MEDS: PIPERACILLIN/TAZOBACTAM 3.375 GM in SODIUM CHLORIDE 0.9% MINIBAG 100 ML IV SCH (23:35)
[2025-07-21] MEDS: SODIUM CHLORIDE FLUSH 0.9% 10 ML SYRINGE IVP PRN (23:51)
[2025-07-21] MEDS: SODIUM CHLORIDE FLUSH 0.9% 10 ML SYRINGE IVP SCH (23:51)
--- NOTE | 2025-07-21 23:53 | XRAY Report ---
PROCEDURE: XR Chest for Line Placement INDICATIONS: central line and ET tube TECHNIQUE: One view of the chest was acquired. COMPARISON: 07/21/2025. FINDINGS: Surgical changes and devices: Endotracheal tube in place. The joão is not well seen secondary to angulation, the tip appears to be above the joão. Enteric tube with tip and side-port below the diaphragm. Left central venous catheter with tip directed over the superior vena cava. Left clavicle hardware is redemonstrated. Left chest wall surgical clips.. Lungs and pleura: No pleural effusions or pneumothorax. Elevation of the right hemidiaphragm. No consolidation. Mediastinum: Mediastinal contours appear normal. Heart size is normal. Bones and chest wall: No suspicious bony lesions. Overlying soft tissues appear unremarkable. IMPRESSION: Lines and tubes as above. Reviewed by: Carmelo Banda MD on 07/21/2025 11:52 PM PDT Approved by: Carmelo Banda MD on 07/21/2025 11:52 PM PDT Station ID: [id number]
[2025-07-22] MEDS: NOREPINEPHRINE/0.9 % NS 8 MG/250 ML BAG IV SCH (00:05)
[2025-07-22] MEDS: INSULIN REGULAR, HUMAN 300 UNIT/3 ML PEN SUBQ SCH (00:17)
[2025-07-22 00:28] LABS: GLUCOSE, URINE (UA) NEGATIVE (NEGATIVE); KETONES,URINE (UA) NEGATIVE (NEGATIVE); OCCULT BLOOD,URINE TRACE (NEGATIVE)
[2025-07-22 00:29] LABS: CASTS, URINE 0-2 Granular Casts /LPF; SQUAMOUS EPITHELIAL CELL,UR MOD Squamous (<= Few)
[2025-07-22 00:56] LABS: ABG BASE EXCESS -0.2 mmol/L (-2.0-3.0); ABG HCO3 24.0 mmol/L (22.0-26.0); ABG OXYGEN SATURATION 99 % (95-98); ABG PCO2 34 mmHg (34-45); ABG PH 7.45 (7.35-7.45); ABG PO2 147 mmHg (83-108); ABG TCO2 25.1 mmol/L (21.0-29.0)
[2025-07-22 00:57] LABS: ABG FRACTION OF INSPIRED O2 50.00; ABG MODE OF VENTILATION ASSIST/CONTROL
[2025-07-22] MEDS: LACTATED RINGERS 1,000 ML IV SCH (02:57)
[2025-07-22 06:14] LABS: HCT - HEMATOCRIT 36.6 % (37.0-47.0); HGB - HEMOGLOBIN 11.7 g/dL (12.0-16.0); MEAN PLATELET VOLUME 10.2 fL (7.9-10.8); PLT - PLATELET COUNT 511 10^3/uL (130-450); RED CELL DISTRIBUTION WIDTH 14.1 % (12.0-15.0)
[2025-07-22] MEDS: PANTOPRAZOLE 40 MG VIAL IVP SCH ×2 (06:14)
[2025-07-22 06:25] LABS: ABNORMAL LYMPHS % (MANUAL) 0 %; BASOPHILS # (MANUAL) 0.0 10^3/uL (0-0.1); EOSINOPHILS # (MANUAL) 0.0 10^3/uL (0-0.7)
[2025-07-22 06:31] LABS: BUN - BLOOD UREA NITROGEN 30.0 mg/dL (6-20); CARBON DIOXIDE - CO2 28.0 mmol/L (21-32); CREATININE 0.9 mg/dL (0.6-1.3); GFR - MDRD 61.0 (>89)
[2025-07-22 06:42] LABS: BAND NEUTROPHILS % (MANUAL) 4 %; LYMPHOCYTES # (MANUAL) 0.9 10^3/uL (1.5-3.5); LYMPHOCYTES % (MANUAL) 2 %; MONOCYTES # (MANUAL) 0.9 10^3/uL (0.0-1.0); NEUTROPHILS # (MANUAL) 42.9 10^3/uL (1.5-6.6); PLATELET ESTIMATE, MANUAL INCREASED (>450,000) (NORMAL); PLATELET MORPHOLOGY NORMAL APPEARANCE (NORMAL); RBC MORPHOLOGY (MULTIPLE) NORMAL APPEARANCE (NORMAL)
[2025-07-22 06:43] LABS: WBC MORPHOLOGY (MULTIPLE) NORMAL APPEARANCE (NORMAL)
[2025-07-22] MEDS: ENOXAPARIN 30 MG/0.3 ML SYRINGE SUBQ SCH (08:07)
[2025-07-22] MEDS: ACETAMINOPHEN 1,000 MG/100 ML 1,000 MG/100 ML BAG IV PRN (08:07)
[2025-07-22] MEDS: CHLORHEXIDINE GLUCONATE 15 ML UDC PO SCH (08:07)
--- NOTE | 2025-07-22 08:45 | PROVIDER PROGRESS NOTE ---
Subjective General Admit Date: 07/21/25 Other Other Information/Narrative: Patient remains intubated and sedated after surgery. Pressors weaned after surgery, and have been off most of the night. OG in place. Armijo in place. Exam Exam Vital Signs: Vital Signs x48h Temp Pulse Pulse Resp BP Pulse Ox 07/22/25 10:09 100 07/22/25 10:00 101.2 F H 100 14 114/66 92 07/22/25 09:00 100.3 F H 101 H 12 126/74 92 07/22/25 08:00 100.8 F H 103 H 14 132/63 H 93 07/22/25 07:34 101 H 07/22/25 07:00 100 15 128/78 93 07/22/25 06:00 99 14 130/76 93 07/22/25 05:30 96 07/22/25 05:00 97 14 132/80 H 96 07/22/25 04:00 97.9 F 96 14 136/83 H 95 07/22/25 03:30 92 07/22/25 03:00 95 14 134/85 H 96 Gen: intubated, sedated Neuro: opens eyes to voice, does not follow commands for me but was following commands for RN prior to increasing sedation for pain this AM CV: RRR Pulm: intubated, B breath sounds, on 30% FiO2, PEEP 5 Abd: fascia closed, wet to dry dressing in subcu. NERISSA with 150mL serosang ouptut since surgery. Ostomy pink with small amount of stool in bag. Ext: no c/c/e Impression/Plan Problem List (1) Sepsis: (2) Perforation of sigmoid colon due to diverticulitis: (3) RICCARDO (acute kidney injury): (4) Pulmonary embolus: (5) Diabetes: (6) Bacteremia due to Streptococcus pneumoniae: (7) Community acquired pneumonia: (8) COVID: Problem List Comment Problem List: 74 y/o F with: 1. perforated diverticulitis with purulent peritonitis - patient presented with free air - POD#1, emergently taken to OR on 07/21, underwent exploratory laparotomy, lysis of adhesions, sigmoid colectomy, and end colostomy, partial omentectomy for ischemic omentum, abdominal washout, and pelvic drain placement - cultures taken in OR. Cultures and pathology pending. Patient on zosyn for intraabdominal infection. - leukocytosis increased today with multiple factors contributing including recent steroid use, stress response, and intraabdominal infection. Continue to follow - ostomy - fascia closed, subcu open; wound with wet to dry dressing in place, will transition to traditional wound vac today, change on Friday. Will place abdominal binder today. - concerned that patient is high risk for complications, including dehiscence with multiple risk factors including recent severe illness, recent steroid use (on 6m dexamethasone at time of admission) diabetes, obesity 2. recent admission (discharged 07/18) for covid, acute hypoxic respiratory failure, s pneumo bacteremia, B subsegmental pulmonary emboli, and diabetes, h/o COPD - as per medical team - if hgb stable tomorrow AM, ok to transition to therapeutic lovenox given recent bilateral pulmonary emboli. This will increase her risk for bleeding. - if patient passes spontaneous breathing trial, encourage extubation today. Recommend change in dressing prior to extubation. Encourage IS once extubated. - encourage activity once extubated. Consider PT/OT consult. 3. concern for malnutrition - recommend checking nutrition labs (prealbumin, mag, phos) - consider trial of trickle tube feeds when clinically stable The patient remains critically ill, in the ICU. Surgery will continue to follow closely.
[2025-07-22] MEDS ORDERED: ENOXAPARIN 40 MG/0.4 ML SYRINGE SUBQ SCH (09:00)
[2025-07-22 10:09] LABS: ESTIMATED AVERAGE GLUCOSE 154 mg/dL (70-100); HEMOGLOBIN A1c% 7.0 % (4.27-6.07)
--- NOTE | 2025-07-22 12:37 | PHARMACY PROGRESS NOTE ---
Best Possible Medication History Admit Date and Time: 07/21/25 1846 Home Medications Medication Instructions Recorded Confirmed Type alprazolam 0.5 mg tablet 0.5 mg PO BID 02/21/2507/22 History blood-glucose meter #1 ea 02/21/25 Rx lancets 32 gauge and blood glucose #300 ea 02/21/25 R x strips kit ([employer] Blood Glucose System Refill) venlafaxine 75 mg capsule,extended 75 mg PO DAILY 06/1007/22/25 History release 24 hr insulin glargine 100 unit/mL (3 15 unit subcut QAM 07/22/25 History mL) subcutaneous pen (Lantus Solostar U-100 Insulin) Augmentin 875 mg-potassium 1 tab PO BID 3 days #6 tabs 07/18/25 07/22/25 Rx clavulanate 125 mg tablet dexamethasone 4 mg tablet 6 mg (1.5 x 4 mg) PO DAILYWM 5 07/18/25 07/22/25 Rx days #8 tabs apixaban 5 mg tablet (Eliquis) 5 mg PO BID 07/22/25 History zolpidem 10 mg tablet 10 mg PO QPM 07/22/25 History Processed by: Pharmacy Medications reviewed in ED?: No Medication History completed: Yes Patient Interview: Pt unable to participate Secondary Source(s): Other family member (DAUGHTER AND GRANDDAUGHTER) and Insurance records [facility] Statement: As the person ultimately responsible for medication therapy, providers are able to order a medication from an existing home medication list in [facility] via the "Reconcile Routine" prior to Confirmation of that medication by student support services director. Such practice is discouraged except when the physician, in their clinical judgment, deems that a medical need exists for a medication without regard to previous use.
[2025-07-22 15:14] LABS: VBG PH 7.474 (7.31-7.41)
[2025-07-22 15:25] LABS: PHOSPHORUS 2.6 mg/dL (2.5-5.0)
[2025-07-22] MEDS: fentaNYL 2,500 MCG/250 ML 2,500 MCG/250 ML BAG IV SCH (15:43)
[2025-07-22] MEDS: ACETAMINOPHEN 1,000 MG/100 ML 1,000 MG/100 ML BAG IV SCH (17:51)
--- NOTE | 2025-07-22 18:52 | PROVIDER PROGRESS NOTE ---
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 diagnostic imaging and laboratory studies and consultation with other providers. Monitoring the patient's signs symptoms, evaluation of medication effectiveness and patient's response to treatment. This time is exclusive of time spent performing wound VAC application.
--- NOTE | 2025-07-22 19:48 | PROCEDURE REPORT ---
Hospitalist Procedure Note Procedure Note Procedure Note: Wound vac application. Complicated abdominal wound, POD #1, Aly's procedure for perforated sigmoid diverticulitis with free air and extensive fecal soilage. Facial sutures palpated to be intact. there is no undermining or tunnels present at this time. no bleeding, just slight ooze. The wound measures 23cm long, 3.5cm at deepest point and 5cm wide at widest point. wound calculated to be about 115 cm2. Black sponge was cut to fit the wound in multiple pieces. The wound edges were prepped with no sting skin prep. care was taken not to have contact of foam with intact skin, and complete coverage of wound bed with foam. sponge was carefully sealed with drape, taking care to avoid stoma wafer and RLQ NERISSA site. Trac pad was applied and vac was set to 125mmHg suction (standard setting). no leaks were detected. Plan to change this wound vac again in about 72 hours, and proceed with replacement or delayed primary closure. CPT 52275
[2025-07-22] MEDS: INSULIN GLARGINE-YFGN 300 UNIT/3 ML PEN SUBQ SCH (20:49)
[2025-07-23 04:42] LABS: HCT - HEMATOCRIT 28.2 % (37.0-47.0); HGB - HEMOGLOBIN 8.7 g/dL (12.0-16.0); MEAN PLATELET VOLUME 10.1 fL (7.9-10.8); PLT - PLATELET COUNT 375 10^3/uL (130-450); RED CELL DISTRIBUTION WIDTH 14.0 % (12.0-15.0)
[2025-07-23 04:47] LABS: VBG PH 7.487 (7.31-7.41)
[2025-07-23 04:52] LABS: ABNORMAL LYMPHS % (MANUAL) 0 %; BAND NEUTROPHILS % (MANUAL) 0 %; BASOPHILS # (MANUAL) 0.0 10^3/uL (0-0.1); EOSINOPHILS # (MANUAL) 0.0 10^3/uL (0-0.7)
[2025-07-23 05:00] LABS: PHOSPHORUS 2.3 mg/dL (2.5-5.0)
[2025-07-23 05:09] LABS: ALT ALANINE AMINOTRANSFERASE 13.0 IU/L (10-60); AST ASPARTATE AMINOTRANSFERASE 19.0 IU/L (10-42); BUN - BLOOD UREA NITROGEN 30.0 mg/dL (6-20); CARBON DIOXIDE - CO2 30.0 mmol/L (21-32); CREATININE 0.8 mg/dL (0.6-1.3); GFR - MDRD 70.0 (>89)
[2025-07-23 05:11] LABS: LYMPHOCYTES # (MANUAL) 1.7 10^3/uL (1.5-3.5); LYMPHOCYTES % (MANUAL) 6 %; MONOCYTES # (MANUAL) 1.7 10^3/uL (0.0-1.0); NEUTROPHILS # (MANUAL) 24.5 10^3/uL (1.5-6.6); PLATELET ESTIMATE, MANUAL NORMAL (130-450,000) (NORMAL); PLATELET MORPHOLOGY NORMAL APPEARANCE (NORMAL); RBC MORPHOLOGY (MULTIPLE) NORMAL APPEARANCE (NORMAL); WBC MORPHOLOGY (MULTIPLE) NORMAL APPEARANCE (NORMAL)
[2025-07-23] MEDS: CALCIUM GLUC 1,000MG/50ML-NACL 1,000 MG/50 ML BAG IV ONE (06:15)
[2025-07-23] MEDS: SODIUM PHOSPHATE 15 MMOL in SODIUM CHLORIDE 0.9% 250 ML IV ONE (08:27)
[2025-07-23] MEDS: ENOXAPARIN 40 MG/0.4 ML SYRINGE SUBQ SCH (08:27)
[2025-07-23 09:21] LABS: VBG PH 7.494 (7.31-7.41)
--- NOTE | 2025-07-23 09:43 | PROVIDER PROGRESS NOTE ---
Subjective General Admit Date: 07/21/25 Other Other Information/Narrative: Patient remains intubated and sedated. RN reports patient readily wakes and follows commands during sedation holidays. Patient had SBT last evening and did ok for a time and then had some apnea and tired quickly. No events overnight. Exam Exam Vital Signs: Vital Signs x48h Temp Pulse Pulse Resp BP Pulse Ox 07/23/25 09:00 64 16 137/61 H 96 07/23/25 08:00 98.4 F 64 16 116/58 L 95 07/23/25 07:00 69 16 130/58 L 93 07/23/25 06:51 70 07/23/25 06:00 66 16 125/62 94 07/23/25 05:27 67 07/23/25 05:00 98.4 F 67 16 117/55 L 95 07/23/25 04:00 68 16 115/55 L 95 07/23/25 03:33 67 07/23/25 03:00 98.4 F 68 16 118/51 L 95 07/23/25 02:00 70 16 109/50 L 94 Gen: intubated, sedated Neuro: opens eyes to voice, does not follow commands for me but was following commands for RN during sedation holiday this AM CV: RRR Pulm: intubated, B breath sounds, on 30% FiO2, PEEP 5 Abd: soft, ND, fascia closed, wound vac in subcu. NERISSA with 140mL serosang ouptut in last 24 hours, more serous today. Ostomy pink with edema and ostomy sweat in bag. Ext: 1+ B LE edema Impression/Plan Problem List (1) Sepsis: (2) Perforation of sigmoid colon due to diverticulitis: (3) RICCARDO (acute kidney injury): (4) Pulmonary embolus: (5) Diabetes: (6) Bacteremia due to Streptococcus pneumoniae: (7) Community acquired pneumonia: (8) COVID: Plan 74 y/o F with: 1. perforated diverticulitis with purulent peritonitis - patient presented with free air on CT - POD#2, emergently taken to OR on 07/21, underwent exploratory laparotomy, lysis of adhesions, sigmoid colectomy, and end colostomy, partial omentectomy for ischemic omentum, abdominal washout, and pelvic drain placement - cultures taken in OR, prelim abd cultures shows GPC's, and gram neg bacilli. Blood cx with NGTD at 1 day. Final culture results and pathology pending. Patient on zosyn for intraabdominal infection. - leukocytosis improving today with multiple factors contributing including recent steroid use, stress response, and intraabdominal infection. Continue to follow - ostomy pink with edema, sweat in bag - fascia closed, subcu with wound vac in place, excellent seal, minimal output, change on Friday. Abdominal binder ordered. - I remain concerned that patient is high risk for complications, including dehiscence with multiple risk factors including recent severe illness, recent steroid use (on 6m dexamethasone at time of admission) diabetes, obesity 2. ABLA - patient asymptomatic - repeat hgb ordered for noon today. No signs of active bleeding (drain looks clear, still has good output, abd soft, vss) - will f/u and share recs for anticoagulation for recent pulmonary emboli with primary medicine team. Starting blood thinners will increase her risk for bleeding complications. 2. recent admission (discharged 07/18) for covid, acute hypoxic respiratory failure, s pneumo bacteremia, B subsegmental pulmonary emboli, and diabetes, h/o COPD - as per medical team - if patient passes spontaneous breathing trial, encourage extubation today. Encourage IS once extubated. - encourage activity once extubated. Consider PT/OT consult. 3. concern for malnutrition - prealbumin 3 - tolerating trickle tube feeds, ok to increase to 1/2 goal today and goal tomorrow if patient continues to tolerate. The patient remains critically ill, in the ICU. Surgery will continue to follow closely.
--- NOTE | 2025-07-23 19:39 | PROVIDER PROGRESS NOTE ---
Subjective Prog Note Date Prog Note Date: 07/23/25 Subjective Subjective: She is intubated in the AM, passed SBT and was able to extubate about 1230 today. She is so happy to be extubated and is immediately very verbal. She is thankful for care. having some abdominal pain that is relatively well controlled. She is oriented to month, year and location. Her family has been at the bedside on and off today. Current Medications Current Medications Current Medications: Current Medications Generic Name Dose Route Start Last Admin Trade Name Freq PRN Reason Stop Dose Admin Albuterol 2.5 mg 07/21/25 22:50 Albuterol Neb 2.5 Mg/3 Ml INH Q4HR PRN Wheezing Enoxaparin Sodium 40 mg 07/23/25 09:00 07/23/25 08:27 Enoxaparin 40 Mg/0.4 Ml Syringe SUBQ 40 mg DAILY TAJ Administration Hydromorphone HCl 0.5 mg 07/23/25 13:01 Hydromorphone 0.5 Mg/0.5 Ml Syringe IVP Q2H PRN Severe Pain (Level 7-10) Piperacillin Sod/Tazobactam 100 mls @ 200 mls/hr 07/21/25 23:00 07/23/25 17:31 Sod 3.375 gm/ Sodium Chloride IV Infused Q6H TAJ Infusion Acetaminophen 1,000 mg in 100 mls @ 400 mls/hr 07/22/25 18:00 07/23/25 17:17 Acetaminophen IV Infused Q6HR TAJ Infusion Insulin Glargine-yfgn 15 unit 07/22/25 21:00 07/22/25 20:49 Insulin Glargine-Yfgn 300 Unit/3 Ml Pen SUBQ 15 unit QPM TAJ Administration Insulin Human Regular 1 - 5 unit 07/22/25 00:00 07/23/25 17:00 Insulin Regular, Human 300 Unit/3 Ml Pen SUBQ Not Given Q6HR TAJ Protocol Ondansetron HCl 4 mg 07/21/25 22:50 Ondansetron 4 Mg/2 Ml Vial IVP Q6HR PRN Nausea / Vomiting Pantoprazole Sodium 40 mg 07/22/25 07:00 07/23/25 06:16 Pantoprazole 40 Mg Vial IVP 40 mg QDAC TAJ Administration Sodium Chloride 10 ml 07/22/25 01:00 07/23/25 17:01 Sodium Chloride Flush 0.9% 10 Ml Syringe IVP 10 ml 0100,0900,1700 TAJ Administration Sodium Chloride 10 ml 07/21/25 22:50 07/23/25 06:16 Sodium Chloride Flush 0.9% 10 Ml Syringe IVP 10 ml PRN PRN Administration NEEDED PER PROVIDER ORDERS Venlafaxine HCl 75 mg 07/24/25 09:00 Venlafaxine Er 75 Mg Capsule PO DAILY [facility] Objective Vital Signs/Intake & Output Reviewed Vital Signs: Yes Vital Signs: Vital Signs x48h Temp Pulse Pulse Resp BP Pulse Ox O2 Flow Rate 07/23/25 16:00 72 20 168/67 H 98 2 07/23/25 15:00 73 22 167/70 H 96 2 07/23/25 14:00 37.2 C 76 24 148/89 H 96 2 07/23/25 13:00 37.3 C 75 19 167/70 H 94 2 07/23/25 12:46 2 07/23/25 12:00 36.9 C 72 13 177/69 H 91 L 07/23/25 11:59 72 Intake & Output: Intake & Output 07/20/25 07/21/25 07/22/25 07/23/25 23:59 23:59 23:59 23:59 Intake Total 7100 / 7100 5983 / 5983 4916 / 4916 Output Total 860 / 860 1347 / 1347 1103 / 1103 Balance 6240 / 6240 4636 / 4636 3813 / 3813 Weight (kg) 83.461 kg 86.5 kg 87.5 kg Objective General Appearance: positive No acute distress and Alert Eyes Bilateral: positive Normal inspection ENT: positive ENT inspection nml and Other (edentulous) Neck: positive Nml inspection and Other (left IJ central line intact. ) Respiratory: positive Chest non-tender and Breath sounds nml Cardiovascular: positive Regular rate & rhythm Abdomen: positive Other (NERISSA drainage, much less bloody. scant drainage from wound vac, stoma viable with some liquid brown output. ) Back: positive Nml inspection Skin: positive Color nml Extremities: positive Non-tender and No pedal edema Neurologic/Psychiatric: positive Oriented x3 Lab Results 07/23/25 20:50 07/23/25 04:35 Other Labs: Lab Results x24hrs 07/23/25 07/23/25 07/23/25 Range/Units 14:25 12:02 09:14 WBC (4.8-10.8) x10^3/uL RBC (4.20-5.40) 10^6/uL Hgb 8.9 L (12.0-16.0) g/dL Hct (37.0-47.0) % MCV (81.0-99.0) fL MCH (27.0-31.0) pg MCHC (32.0-36.0) g/dL RDW (12.0-15.0) % Plt Count (130-450) 10^3/uL MPV (7.9-10.8) fL Neut # (Auto) Lymph # (Auto) Rosebud # (Auto) Eos # (Auto) Baso # (Auto) Absolute Nucleated RBC Total Counted Band Neuts % (Manual) (0 - 10) % Abnorm Lymph % (Manual) % Nucleated RBC % Neutrophils # (Manual) (1.5-6.6) 10^3/uL Lymphocytes # (Manual) (1.5-3.5) 10^3/uL Monocytes # (Manual) (0.0-1.0) 10^3/uL Eosinophils # (Manual) (0-0.7) 10^3/uL Basophils # (Manual) (0-0.1) 10^3/uL Differential Comment WBC Morphology (NORMAL) Platelet Estimate (NORMAL) Platelet Morphology (NORMAL) RBC Morph Micro Appear (NORMAL) VBG pH 7.494 H (7.31-7.41) Ionized Calcium 1.15 (1.09-1.30) mmol/L Sodium (135-145) mmol/L Potassium (3.5-4.5) mmol/L Chloride (101-111) mmol/L Carbon Dioxide (21-32) mmol/L Anion Gap (6-13) BUN (6-20) mg/dL Creatinine (0.6-1.3) mg/dL Estimated GFR (MDRD) (>89) Glucose (74-104) mg/dL POC Whole Bld Glucose (70-100) mg/dL Calcium (8.5-10.3) mg/dL Phosphorus 3.3 (2.5-5.0) mg/dL Magnesium (1.7-2.3) mg/dL Total Bilirubin (0.2-1.0) mg/dL AST (10-42) IU/L ALT (10-60) IU/L Alkaline Phosphatase (42-121) IU/L Total Protein (6.4-8.9) g/dL Albumin (3.2-5.5) g/dL Globulin (2.1-4.2) g/dL Albumin/Globulin Ratio (1.0-2.2) Prealbumin (17-34) mg/dL 07/23/25 07/23/25 07/23/25 Range/Units 05:56 04:35 00:22 WBC 27.8 H (4.8-10.8) x10^3/uL RBC 3.04 L (4.20-5.40) 10^6/uL Hgb 8.7 L (12.0-16.0) g/dL Hct 28.2 L (37.0-47.0) % MCV 92.8 (81.0-99.0) fL MCH 28.6 (27.0-31.0) pg MCHC 30.9 L (32.0-36.0) g/dL RDW 14.0 (12.0-15.0) % Plt Count 375 (130-450) 10^3/uL MPV 10.1 (7.9-10.8) fL Neut # (Auto) Not Reportable Lymph # (Auto) Not Reportable Rosebud # (Auto) Not Reportable Eos # (Auto) Not Reportable Baso # (Auto) Not Reportable Absolute Nucleated RBC Not Reportable Total Counted 100 Band Neuts % (Manual) 0 (0 - 10) % Abnorm Lymph % (Manual) 0 % Nucleated RBC % Not Reportable Neutrophils # (Manual) 24.5 H (1.5-6.6) 10^3/uL Lymphocytes # (Manual) 1.7 (1.5-3.5) 10^3/uL Monocytes # (Manual) 1.7 H (0.0-1.0) 10^3/uL Eosinophils # (Manual) 0.0 (0-0.7) 10^3/uL Basophils # (Manual) 0.0 (0-0.1) 10^3/uL Differential Comment MANUAL DIFFERENTIAL WBC Morphology NORMAL APPEARANCE (NORMAL) Platelet Estimate NORMAL (130-450,000) (NORMAL) Platelet Morphology NORMAL APPEARANCE (NORMAL) RBC Morph Micro Appear NORMAL APPEARANCE (NORMAL) VBG pH 7.487 H (7.31-7.41) Ionized Calcium 1.11 (1.09-1.30) mmol/L Sodium 136 (135-145) mmol/L Potassium 4.2 (3.5-4.5) mmol/L Chloride 104 (101-111) mmol/L Carbon Dioxide 30 (21-32) mmol/L Anion Gap 2.0 L (6-13) BUN 30 H (6-20) mg/dL Creatinine 0.8 (0.6-1.3) mg/dL Estimated GFR (MDRD) 70 L (>89) Glucose 216 H (74-104) mg/dL POC Whole Bld Glucose 198 214 (70-100) mg/dL Calcium 7.4 L (8.5-10.3) mg/dL Phosphorus 2.3 L (2.5-5.0) mg/dL Magnesium 1.9 (1.7-2.3) mg/dL Total Bilirubin 0.4 (0.2-1.0) mg/dL AST 19 (10-42) IU/L ALT 13 (10-60) IU/L Alkaline Phosphatase 58 (42-121) IU/L Total Protein 4.4 L (6.4-8.9) g/dL Albumin 1.9 L (3.2-5.5) g/dL Globulin 2.5 (2.1-4.2) g/dL Albumin/Globulin Ratio 0.8 L (1.0-2.2) Prealbumin 3 L (17-34) mg/dL Other Results/Comments Other Results/Comments: 07/21 blood cultures no growth for two days ABX Reporting Has patient been on IV antibiotics over the past 48 hours?: Yes Sepsis Event Note (H) Evaluation Current Stage of Sepsis: Sepsis Possible source of Sepsis: positive GI tract/intra-abdominal Sepsis Criteria Sepsis Criteria: WBC count greater than 10% bands and WBC count greater than 12,000 or less than 4000 Assessment/Plan Problem List (1) Sepsis: Impression: Presents to the emergency department with complaints of vomiting, lumps on her abdomen with a recent history of being COVID-positive. Initial chest x-ray in the emergency department showed free air under the diaphragm bilaterally. Vital signs initially showed tachycardia and tachypnea with normal oxygen saturations on room air and no hypotension. Patient did deteriorate while she was in the emergency department and just prior to going to the operating room was starting to have some respiratory failure. Her labs showed an acute kidney injury, elevated lactate and a profound leukocytosis. CT was positive for perforation of hollow viscus. General surgery was contacted emergently from the emergency department. she was taken to the operating room immediately. Dr. Swann found a perforated sigmoid diverticulitis and performed a Aly's procedure. She is now POD #2. I have started this patient on Zosyn. MRSA screen is negative. She has been fever free for about 24 hours now. WBC is improving. Laboratory Tests 07/21/25 07/22/25 07/23/25 17:15 06:09 04:35 WBC 36.8 H* 44.7 H* 27.8 H She was able to extubate today, and has tolerated a clear liquid diet. I have transferred her to med surg status this evening. (2) Perforation of sigmoid colon due to diverticulitis: Impression: POD #2 exploratory laparotomy with Armando's procedure and washout of abdomen. Colostomy in place. NERISSA drainage is progressively less bloody. perforation was subacute. much inflammatory tissue within the abdomen. thoroughly washed out. Her abdominal fascia is closed, but of poor quality. Discussed with Dr Valles, general surgeon this AM. Stoma viable with liquid output. She is maintained on Zosyn. Plan on at least 4 days, post surgical source control, but dependent on her clinical status and the improvement of her sepsis syndrome. I am advancing her diet. (3) RICCARDO (acute kidney injury): Impression: Baseline creatinine is between 0.7 and 0.9. She presents with a creatinine of 1.5 indicating that her creatinine is roughly double that of baseline. I believe this is acute kidney injury secondary to overwhelming sepsis of abdominal origin. She is now with surgical source control. This improved very rapidly. recheck BMP in AM. I will also check Mag and Phos in the AM with resumption of nutrition. (4) Pulmonary embolus: Impression: CTA 07/16 with subsegmental PE bilat lower lobes, no signs of R heart strain (but another reason to get an echo this admit). Also seen was LLL infiltrate. followup venous duplex bilateral lower ext showed no DVT but there is Right greater saphenous vein thrombus. Typically greater saphenous vein thrombus is treated as a DVT if it is close to the saphenofemoral junction (within 3 cm) as this poses a higher risk of progression to DVT or PE. Given that she already has a PE, we will be restarting her Eliquis treatment at about 48 hours postop. As resuming Eliquis prior to this poses a great risk for bleeding. I have asked nursing not to use SCD on the right lower extremity. She has dropped her hemoglobin. I would like to see her hgb stable for about 24 hours prior to resumption of anticoagulation. She does not show signs of bleeding. her drain is draining mildy bloody fluid, her abdomen is soft, there is minimal drainage from the wound vac. She does not have blood in her stoma bag. Discussed with Dr Valles this AM, we will start therapeutic lovenox in the AM if her Hgb is stable. (5) Diabetes: Impression: Aim to keep blood sugars less than 180. Her diabetes therapy at home consists of Lantus insulin 15 units every evening. Last hemoglobin A1c several days ago was 6.3% indicating good control. I have placed her on sliding scale insulin and per her blood sugars overnight, I am resuming her home lantus dosing. She came to us on dexamethasone 6 mg daily. This was prescribed at hospital discharge for 5 days. I do not think she has been on steroids long enough to cause adrenal insufficiency. At this point I am going to hold further steroids in favor of good tissue healing. Laboratory Tests 07/22/25 07/23/25 07/23/25 17:47 00:22 05:56 POC Whole Bld Glucose 199 214 198 (6) Bacteremia due to Streptococcus pneumoniae: Impression: Previous admission from 07/16/2025 to 07/18/2025. Blood cultures were drawn this admission. Patient had a pneumonia, community-acquired. She finished a 3-day course of azithromycin and was discharged home on Augmentin. Her blood cultures subsequently were positive for strep pneumo. She was called by the emergency department but unfortunately missed the calls because she was sleeping due to feeling so poorly. The Zosyn prescribed for her intra-abdominal infection should cover her strep pneumo bacteremia. Duration of treatment is dependent upon her overall clincal picture. I have ordered Echo for tomorrow AM. (7) Community acquired pneumonia: Impression: CTA of the chest on July 16 does show a left lower lobe infiltrate. She was prescribed Augmentin upon discharge from the hospital. I am continuing Zosyn which should be adequate coverage for community-acquired pneumonia. She has received azithromycin x 3 days at the time of her previous hospitalization. She does not have any abnormal breath sounds on lung auscultation. as she has been extubated this afternoon, she has weaned to 2L via NC. (8) COVID: Impression: positive for COVID on 16 July. symptoms started on 07/12. rn lvn states that she may be out of isolation on 07/27. She does not seem to be symptomatic with her COVID at this time, I will attribute her fever to her intra abdominal process, given the lack of pulmonary findings on exam and imaging. This patient's diagnosis and treatment plan was discussed this AM with attending physician as a part of multi disciplinary rounding meeting. I have spent 58 minutes in the care of this patient today. This includes time [id number], review and ordering of diagnostic imaging and laboratory studies and consultation with other providers. Monitoring the patient's signs symptoms, evaluation of medication effectiveness and patient's response to treatment.
[2025-07-24] MEDS: HYDROmorphone 0.5 MG/0.5 ML SYRINGE IVP PRN (00:15)
[2025-07-24 05:51] LABS: HCT - HEMATOCRIT 30.4 % (37.0-47.0); HGB - HEMOGLOBIN 9.7 g/dL (12.0-16.0); MEAN PLATELET VOLUME 10.2 fL (7.9-10.8); NRBC ABSOLUTE COUNT (AUTO) 0.00 x10^3/uL; NUCLEATED RED BLOOD CELLS AUTO 0.0 /100WBC; PLT - PLATELET COUNT 481 10^3/uL (130-450); RED CELL DISTRIBUTION WIDTH 13.7 % (12.0-15.0)
[2025-07-24 06:11] LABS: BUN - BLOOD UREA NITROGEN 18.0 mg/dL (6-20); CARBON DIOXIDE - CO2 31.0 mmol/L (21-32); CREATININE 0.6 mg/dL (0.6-1.3); GFR - MDRD 98.0 (>89); PHOSPHORUS 2.8 mg/dL (2.5-5.0)
[2025-07-24 06:21] LABS: PLATELET ESTIMATE, MANUAL INCREASED (>450,000) (NORMAL); PLATELET MORPHOLOGY NORMAL APPEARANCE (NORMAL); RBC MORPHOLOGY (MULTIPLE) NORMAL APPEARANCE (NORMAL); WBC MORPHOLOGY (MULTIPLE) NORMAL APPEARANCE (NORMAL)
[2025-07-24] MEDS: INSULIN LISPRO 300 UNIT/3 ML PEN SUBQ SCH (07:58)
[2025-07-24] MEDS: VENLAFAXINE ER 75 MG CAPSULE PO SCH (08:18)
--- NOTE | 2025-07-24 08:47 | PROVIDER PROGRESS NOTE ---
Subjective General Admit Date: 07/21/25 Other Other Information/Narrative: Patient extubated and transferred to the floor yesterday. Patient reports dangling feet on side of bed and standing at bedside yesterday. Tolerating soft diet for breakfast, no n/v. She is having some pain but feels it is controlled with IV meds. Denies fevers/chills. Very grateful for care. Exam Exam Vital Signs: Vital Signs x48h Temp Pulse Resp BP Pulse Ox O2 Flow Rate 07/24/25 08:55 1 07/24/25 07:54 97.7 F 77 28 H 97 1 07/24/25 04:53 97.5 F L 79 20 151/84 H 96 1 Gen: NAD, alert and oriented CV: RRR Pulm: non labored, on 1L NC Abd: soft, ND, fascia closed, wound vac in subcu with good seal, minimal output. NERISSA with 60mL serosang ouptut in last 24 hours. Ostomy pink with edema and ostomy sweat in bag. Ext: trace B LE edema ABX Reporting Has patient been on IV antibiotics over the past 48 hours?: Yes Impression/Plan Problem List (1) Sepsis: (2) Perforation of sigmoid colon due to diverticulitis: (3) RICCARDO (acute kidney injury): (4) Pulmonary embolus: (5) Diabetes: (6) Bacteremia due to Streptococcus pneumoniae: (7) Community acquired pneumonia: (8) COVID: Plan 74 y/o F with: 1. perforated diverticulitis with purulent peritonitis - patient presented with free air on CT - POD#3, emergently taken to OR on 07/21, underwent exploratory laparotomy, lysis of adhesions, sigmoid colectomy, and end colostomy, partial omentectomy for ischemic omentum, abdominal washout, and pelvic drain placement - extubated on 07/23 - cultures taken in OR, abd cultures grew lindsey sensitive e coli and strep viridans. Blood cx with gram negative bacilli in 1/2 at two days. Additional culture results and pathology pending. Patient on zosyn and flagyl for intraabdominal infection (appropriate coverage for identified organisms). - leukocytosis persistent but stable today with multiple factors contributing including recent steroid use, stress response, and intraabdominal infection (source control at surgery). Continue to follow. VSS and afebrile for last 24 hours. - ostomy pink with edema, sweat in bag - fascia closed, subcu with wound vac in place, excellent seal, minimal output, change on Friday. Abdominal binder in place. Plan for delayed primary closure of subcu when leukocytosis improved. - I remain concerned that patient is high risk for complications, including dehiscence with multiple risk factors including recent severe illness, recent steroid use (on 6m dexamethasone at time of admission) diabetes, obesity 2. ABLA - patient asymptomatic - Hgb stable for 24 hours. No signs of active bleeding (drain looks clear, still has good output, abd soft, vss) - Ok to start heparin drip or therapeutic Lovenox today. Starting blood thinners will increase her risk for bleeding complications. 3. malnutrition - prealbumin 3 - Patient received TF while intubated, ok to adat to soft diet today. Nutrition following. Protein supplements encouraged. 4. recent admission (discharged 07/18) for covid, acute hypoxic respiratory failure, s pneumo bacteremia, B subsegmental pulmonary emboli, and diabetes, h/o COPD - as per medical team - consider removing tucker today (UOP appropriate, 0.5ml/kg/hr) - Encourage IS once extubated. - encourage increased activity. Consider PT/OT consult. The patient is slowly improving, her status is guarded. Surgery will continue to follow closely.
[2025-07-24] MEDS: GABAPENTIN 300 MG CAPSULE PO SCH (10:18)
[2025-07-24] MEDS: oxyCODONE 5 MG TABLET PO PRN (11:52)
[2025-07-24] MEDS: ENOXAPARIN 40 MG/0.4 ML SYRINGE SUBQ ONE (11:52)
[2025-07-24] MEDS: ACETAMINOPHEN 325 MG TABLET PO SCH (13:00)
--- NOTE | 2025-07-24 13:03 | PROVIDER PROGRESS NOTE ---
Subjective Prog Note Date Prog Note Date: 07/24/25 Subjective Subjective: Family at bedside, and complaining that she is emotionally labile, and concerned that she is not getting her Venlafaxine. This was ordered yesterday evening, and not given until this AM due to standard medical reception times She is sitting in bed and eating a regular diet. Current Medications Current Medications Current Medications: Current Medications Generic Name Dose Route Start Last Admin Trade Name Freq PRN Reason Stop Dose Admin Acetaminophen 650 mg 07/24/25 13:00 Acetaminophen 325 Mg Tablet PO Q4HR TAJ Albuterol 2.5 mg 07/21/25 22:50 Albuterol Neb 2.5 Mg/3 Ml INH Q4HR PRN Wheezing Enoxaparin Sodium 80 mg 07/25/25 09:00 Enoxaparin 80 Mg/0.8 Ml Syringe SUBQ DAILY TAJ Gabapentin 100 mg 07/24/25 14:00 Gabapentin 100 Mg Capsule PO TID TAJ Hydromorphone HCl 0.5 mg 07/23/25 13:01 07/24/25 00:15 Hydromorphone 0.5 Mg/0.5 Ml Syringe IVP 0.5 mg Q2H PRN Administration Breakthrough Pain Hydroxyzine Pamoate 25 mg 07/23/25 20:22 07/23/25 20:55 Hydroxyzine Pamoate 25 Mg Capsule PO 25 mg QPM PRN Administration Insomnia Piperacillin Sod/Tazobactam 100 mls @ 200 mls/hr 07/21/25 23:00 07/24/25 10:51 Sod 3.375 gm/ Sodium Chloride IV Infused Q6H [facility] Infusion Insulin Glargine-yfgn 15 unit 07/22/25 21:00 07/23/25 20:54 Insulin Glargine-Yfgn 300 Unit/3 Ml Pen SUBQ 15 unit QPM TAJ Administration Insulin Human Lispro 1 - 5 unit 07/24/25 08:00 07/24/25 11:56 Insulin Lispro 300 Unit/3 Ml Pen SUBQ Not Given 0800,1200,1700,2100 [facility] Protocol Lorazepam 2 mg 07/23/25 22:00 07/23/25 22:10 Lorazepam 1 Mg Tablet PO 2 mg Q4H PRN Administration Anxiety Ondansetron HCl 4 mg 07/21/25 22:50 Ondansetron 4 Mg/2 Ml Vial IVP Q6HR PRN Nausea / Vomiting Oxycodone HCl 5 mg 07/24/25 09:29 07/24/25 11:52 Oxycodone 5 Mg Tablet PO 5 mg Q4HR PRN Administration Severe Pain (Level 7-10) Pantoprazole Sodium 40 mg 07/22/25 07:00 07/24/25 06:07 Pantoprazole 40 Mg Vial IVP 40 mg QDAC TAJ Administration Sodium Chloride 10 ml 07/22/25 01:00 07/24/25 08:18 Sodium Chloride Flush 0.9% 10 Ml Syringe IVP 10 ml 0100,0900,1700 TAJ Administration Sodium Chloride 10 ml 07/21/25 22:50 07/24/25 06:06 Sodium Chloride Flush 0.9% 10 Ml Syringe IVP 10 ml PRN PRN Administration NEEDED PER PROVIDER ORDERS Venlafaxine HCl 75 mg 07/24/25 09:00 07/24/25 08:18 Venlafaxine Er 75 Mg Capsule PO 75 mg DAILY TAJ Administration Objective Vital Signs/Intake & Output Reviewed Vital Signs: Yes Vital Signs: Vital Signs x48h Temp Pulse Resp Pulse Ox O2 Flow Rate 07/24/25 08:55 1 07/24/25 07:54 36.5 C 77 28 H 97 1 Intake & Output: Intake & Output 07/21/25 07/22/25 07/23/25 07/24/25 23:59 23:59 23:59 23:59 Intake Total 7100 / 7100 5983 / 5983 5236 / 5236 860 / 860 Output Total 860 / 860 1347 / 1347 1403 / 1403 420 / 420 Balance 6240 / 6240 4636 / 4636 3833 / 3833 440 / 440 Weight (kg) 83.461 kg 86.5 kg 87.5 kg Objective General Appearance: positive No acute distress and Alert Eyes Bilateral: positive Normal inspection ENT: positive ENT inspection nml and Other (edentulous) Neck: positive Nml inspection and Other (left IJ central line intact. ) Respiratory: positive Chest non-tender and Breath sounds nml Cardiovascular: positive Regular rate & rhythm Abdomen: positive Other (NERISSA drainage, tends toward serous, scant drainage from wound vac, stoma viable with some liquid brown output. ) Back: positive Nml inspection Skin: positive Color nml Extremities: positive Non-tender and No pedal edema Neurologic/Psychiatric: positive Oriented x3 Lab Results 07/24/25 05:31 07/24/25 05:31 Other Labs: Lab Results x24hrs 07/24/25 07/24/25 07/24/25 Range/Units 11:36 07:44 05:31 WBC 28.0 H (4.8-10.8) x10^3/uL RBC 3.30 L (4.20-5.40) 10^6/uL Hgb 9.7 L (12.0-16.0) g/dL Hct 30.4 L (37.0-47.0) % MCV 92.1 (81.0-99.0) fL MCH 29.4 (27.0-31.0) pg MCHC 31.9 L (32.0-36.0) g/dL RDW 13.7 (12.0-15.0) % Plt Count 481 H (130-450) 10^3/uL MPV 10.2 (7.9-10.8) fL Neut # (Auto) 25.1 H (1.5-6.6) 10^3/uL Lymph # (Auto) 1.4 L (1.5-3.5) 10^3/uL [place] # (Auto) 1.0 (0.0-1.0) 10^3/uL Eos # (Auto) 0.1 (0.0-0.7) 10^3/uL Baso # (Auto) 0.1 (0.0-0.1) 10^3/uL Absolute Nucleated RBC 0.00 x10^3/uL Band Neuts % (Manual) Not Reportable Abnorm Lymph % (Manual) Not Reportable Nucleated RBC % 0.0 /100WBC Neutrophils # (Manual) Not Reportable Lymphocytes # (Manual) Not Reportable Monocytes # (Manual) Not Reportable Eosinophils # (Manual) Not Reportable Basophils # (Manual) Not Reportable Differential Comment MANUAL=AUTO DIFF WBC Morphology NORMAL APPEARANCE (NORMAL) Platelet Estimate INCREASED (>450,000) (NORMAL) Platelet Morphology NORMAL APPEARANCE (NORMAL) RBC Morph Micro Appear NORMAL APPEARANCE (NORMAL) Sodium 137 (135-145) mmol/L Potassium 3.7 (3.5-4.5) mmol/L Chloride 103 (101-111) mmol/L Carbon Dioxide 31 (21-32) mmol/L Anion Gap 3.0 L (6-13) BUN 18 (6-20) mg/dL Creatinine 0.6 (0.6-1.3) mg/dL Estimated GFR (MDRD) 98 (>89) Glucose 119 H (74-104) mg/dL POC Whole Bld Glucose 105 104 (70-100) mg/dL Calcium 7.9 L (8.5-10.3) mg/dL Phosphorus 2.8 (2.5-5.0) mg/dL Magnesium 1.9 (1.7-2.3) mg/dL 07/23/25 07/23/25 07/23/25 Range/Units 20:58 20:50 14:25 WBC (4.8-10.8) x10^3/uL RBC (4.20-5.40) 10^6/uL Hgb 9.3 L (12.0-16.0) g/dL Hct (37.0-47.0) % MCV (81.0-99.0) fL MCH (27.0-31.0) pg MCHC (32.0-36.0) g/dL RDW (12.0-15.0) % Plt Count (130-450) 10^3/uL MPV (7.9-10.8) fL Neut # (Auto) (1.5-6.6) 10^3/uL Lymph # (Auto) (1.5-3.5) 10^3/uL [place] # (Auto) (0.0-1.0) 10^3/uL Eos # (Auto) (0.0-0.7) 10^3/uL Baso # (Auto) (0.0-0.1) 10^3/uL Absolute Nucleated RBC x10^3/uL Band Neuts % (Manual) Abnorm Lymph % (Manual) Nucleated RBC % /100WBC Neutrophils # (Manual) Lymphocytes # (Manual) Monocytes # (Manual) Eosinophils # (Manual) Basophils # (Manual) Differential Comment WBC Morphology (NORMAL) Platelet Estimate (NORMAL) Platelet Morphology (NORMAL) RBC Morph Micro Appear (NORMAL) Sodium (135-145) mmol/L Potassium (3.5-4.5) mmol/L Chloride (101-111) mmol/L Carbon Dioxide (21-32) mmol/L Anion Gap (6-13) BUN (6-20) mg/dL Creatinine (0.6-1.3) mg/dL Estimated GFR (MDRD) (>89) Glucose (74-104) mg/dL POC Whole Bld Glucose 136 (70-100) mg/dL Calcium (8.5-10.3) mg/dL Phosphorus 3.3 (2.5-5.0) mg/dL Magnesium (1.7-2.3) mg/dL Other Results/Comments Other Results/Comments: Cultures: intraop cultures: Many GPC, Mod GNR: E coli 1+ growth, strep viridans. This E coli is lindsey sensitive. 07/21: PCR blood culture neg, GN bacilli in anaerobic bottle, but not PCR ID Strep pneumo in blood cultures from 07/16. ABX Reporting Has patient been on IV antibiotics over the past 48 hours?: Yes Sepsis Event Note (H) Evaluation Current Stage of Sepsis: Sepsis Possible source of Sepsis: positive GI tract/intra-abdominal Sepsis Criteria Sepsis Criteria: WBC count greater than 10% bands and WBC count greater than 12,000 or less than 4000 Assessment/Plan Problem List (1) Sepsis: Impression: Presents to the emergency department with complaints of vomiting, lumps on her abdomen with a recent history of being COVID-positive. Initial chest x-ray in the emergency department showed free air under the diaphragm bilaterally. Vital signs initially showed tachycardia and tachypnea with normal oxygen saturations on room air and no hypotension. Patient did deteriorate while she was in the emergency department and just prior to going to the operating room was starting to have some respiratory failure. Her labs showed an acute kidney injury, elevated lactate and a profound leukocytosis. CT was positive for perforation of hollow viscus. General surgery was contacted emergently from the emergency department. she was taken to the operating room immediately. Dr. Swann found a perforated sigmoid diverticulitis and performed a Aly's procedure. She is now POD #3. I have started this patient on Zosyn. MRSA screen is negative. She has been fever free for about 24 hours now. WBC is stagnant today. Laboratory Tests 07/21/25 07/22/25 07/23/25 17:15 06:09 04:35 WBC 36.8 H* 44.7 H* 27.8 H 07/24/25 05:31 WBC 28.0 H extubated 07/23, now tolerating a soft diet. She has done well on med surg floor overnight. seen by PT this AM and recommendation is for SNF. (2) Perforation of sigmoid colon due to diverticulitis: Impression: POD #3 exploratory laparotomy with Armando's procedure and washout of abdomen. Colostomy in place. NERISSA drainage is progressively less bloody. perforation was subacute. much inflammatory tissue within the abdomen. thoroughly washed out. Her abdominal fascia is closed, but of poor quality. reviewed care with Dr Valles, general surgeon this AM. Stoma viable with liquid output. She is maintained on Zosyn. Plan on at least 4 days, post surgical source control, but dependent on her clinical status and the improvement of her sepsis syndrome. I am advancing her diet. (3) RICCARDO (acute kidney injury): Impression: Baseline creatinine is between 0.7 and 0.9. She presents with a creatinine of 1.5 indicating that her creatinine is roughly double that of baseline. I believe this is acute kidney injury secondary to overwhelming sepsis of abdominal origin. She is now with surgical source control. This improved very rapidly. recheck BMP in AM. Mag and phos are WNL. (4) Pulmonary embolus: Impression: CTA 07/16 with subsegmental PE bilat lower lobes, no signs of R heart strain (but another reason to get an echo this admit). Also seen was LLL infiltrate. followup venous duplex bilateral lower ext showed no DVT but there is Right greater saphenous vein thrombus. Typically greater saphenous vein thrombus is treated as a DVT if it is close to the saphenofemoral junction (within 3 cm) as this poses a higher risk of progression to DVT or PE. Given that she already has a PE, Dr Valles and I agreed that today, with stable Hgb, she can start therapeutic lovenox. Pharmacy has assisted with dosing this AM (80mg daily). (5) Diabetes: Impression: Aim to keep blood sugars less than 180. Her diabetes therapy at home consists of Lantus insulin 15 units every evening. Last hemoglobin A1c several days ago was 6.3% indicating good control. I have placed her on sliding scale insulin and per her blood sugars overnight, I am resuming her home lantus dosing. She came to us on dexamethasone 6 mg daily. This was prescribed at hospital discharge for 5 days. I do not think she has been on steroids long enough to cause adrenal insufficiency. At this point I am going to hold further steroids in favor of good tissue healing. The trend is towards blood sugar control that is much improved. Laboratory Tests 07/23/25 07/23/25 07/24/25 05:56 20:58 07:44 POC Whole Bld Glucose 198 136 104 07/24/25 11:36 POC Whole Bld Glucose 105 (6) Bacteremia due to Streptococcus pneumoniae: Impression: Previous admission from 07/16/2025 to 07/18/2025. Blood cultures were drawn this admission. Patient had a pneumonia, community-acquired. She finished a 3-day course of azithromycin and was discharged home on Augmentin. Her blood cultures subsequently were positive for strep pneumo. She was called by the emergency department but unfortunately missed the calls because she was sleeping due to feeling so poorly. The Zosyn prescribed for her intra-abdominal infection should cover her strep pneumo bacteremia. Duration of treatment is dependent upon her overall clincal picture. Echo done but not read. (7) Community acquired pneumonia: Impression: CTA of the chest on July 16 does show a left lower lobe infiltrate. She was prescribed Augmentin upon discharge from the hospital. I am continuing Zosyn which should be adequate coverage for community-acquired pneumonia. She has received azithromycin x 3 days at the time of her previous hospitalization. She does not have any abnormal breath sounds on lung auscultation. She is breathing room air and doing well. (8) COVID: Impression: positive for COVID on 16 July. symptoms started on 07/12. 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 She does not seem to be symptomatic with her COVID at this time. This patient's diagnosis and treatment plan was discussed this AM with attending physician as a part of multi disciplinary rounding meeting. I have spent 55 minutes in the care of this patient today. This includes time [id number], review and ordering of diagnostic imaging and laboratory studies and consultation with other providers. Monitoring the patient's signs symptoms, evaluation of medication effectiveness and patient's response to treatment.
[2025-07-24] MEDS ORDERED: GABAPENTIN 100 MG CAPSULE PO SCH (14:00)
[2025-07-24] MEDS: GABAPENTIN 100 MG CAPSULE PO SCH (14:59)
--- NOTE | 2025-07-24 15:06 | PT Plan of Care ---
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 MEDICAL/SURGICAL HISTORY Medical History (Updated 07/24/25 @ 03:36 by Mony Bonilla, RN) Diverticulosis Uterine cancer Coronary artery disease Rheumatoid arthritis Hypertension Kidney stones Breast cancer COPD (chronic obstructive pulmonary disease) Diabetes Surgical History (Updated 07/24/25 @ 03:36 by Mony Bonilla, RN) History of bilateral mastectomy H/O: hysterectomy BALANCE/FUNCTIONAL RESULTS Sitting Balance: Fair Standing Balance: Poor Tinetti Composite Score (Balance + Gait): 2 Tinetti Assessment Interpretation: High Fall Risk ASSESSMENT Assessment: The pt is a 74 y/o F who arrived to the ED on 07/21/25 due to increasing abdominal pain and progressive weakness, she was hospitalized with a perforated bowel and is now s/p ex lap with perforated bowel repair on 07/21/25. Of note pt was DC'd home from our ED on 07/19/25 with respiratory deficits related to covid, she is no longer on precautions for this. PMH includes recurrent breast CA with double mastectomy, please see chart for complete medical hx. The pt was received resting supine in bed and presented today with decreased B UE and LE strength, decreased activity tolerance, and impaired balance (sitting and standing) all of which limited her tolerance with functional mobility. She is functioning far below her baseline level and is unsafe to return home. At this time recommend continued skilled PT intervention while in the acute setting and DC to SNF for further rehab once pt medically stable. This plan was discussed with the pt and she was in agreement with this. At the end of the session the pt was sitting up in a chair with call light in reach, chair alarm in place and on, and all needs met. RN and PA updated on pt's status and DC rec. PATIENT/FAMILY GOALS Patient/Family Goals: "I want to be able to walk again" GOALS Improve supine to sit to:: Minimal Assist Improve sit to stand to:: Minimal Assist Improve pivot transfer ability to:: Minimal Assist Improve sit to supine to:: Minimal Assist Other transfer goal:: STS and stand pivot with FWW Improve gait ability to:: Min A Advance Assistive Device to:: Front Wheeled Walker Increase distance walked to (in feet):: 15 Improve Sitting Balance to:: Good PLAN Frequency: 1-2x/day Duration: Until discharge DISCHARGE RECOMMENDATIONS Discharge Location: Snf Facility Support/Services Needed: With assist Other Discharge Equipment: pt owns all recommended DME Transport Needs at Discharge: [place]
--- NOTE | 2025-07-25 06:20 | PROVIDER PROGRESS NOTE ---
Subjective General Admit Date: 07/21/25 Other Other Information/Narrative: Pain controlled. Some nausea this AM. No vomiting. RN reports increased gas from ostomy overnight. +void +up to chair yesterday Exam Exam Vital Signs: Vital Signs x48h Temp Pulse Resp BP Pulse Ox 07/25/25 04:50 97.5 F L 92 28 H 152/82 H 96 07/25/25 01:45 97.7 F 96 24 126/76 92 Gen: NAD, alert and oriented CV: RRR Pulm: non labored, on RA Abd: soft, ND, fascia closed, wound vac in subcu with good seal, minimal output. NERISSA with 40mL serous ouptut in last 24 hours. Ostomy pink with edema and gas and ostomy sweat in bag. Ext: trace B LE edema Impression/Plan Problem List (1) Sepsis: (2) Perforation of sigmoid colon due to diverticulitis: (3) RICCARDO (acute kidney injury): (4) Pulmonary embolus: (5) Diabetes: (6) Bacteremia due to Streptococcus pneumoniae: (7) Community acquired pneumonia: (8) COVID: Plan 74 y/o F with: 1. perforated diverticulitis with purulent peritonitis - patient presented with free air on CT - POD#4, emergently taken to OR on 07/21, underwent exploratory laparotomy, lysis of adhesions, sigmoid colectomy, and end colostomy, partial omentectomy for ischemic omentum, abdominal washout, and pelvic drain placement - extubated on 07/23 - cultures taken in OR, abd cultures grew lindsey sensitive e coli and strep viridans. Blood cx with gram negative bacilli in 1/2 at two days. Additional culture results and pathology pending. Patient on zosyn and flagyl for intraabdominal infection (appropriate coverage for identified organisms). - leukocytosis persistent, slightly increased today with multiple factors contributing including recent steroid use, stress response, and intraabdominal infection (source control at surgery). Continue to follow. VSS and afebrile for last 24 hours. If WBC continues to increase, consider repeat CT tomorrow. - ostomy pink with edema, sweat in bag - fascia closed, subcu with wound vac in place, excellent seal, minimal output, change on Friday. Abdominal binder in place. Plan for delayed primary closure of subcu when leukocytosis improved, not today. - I remain concerned that patient is high risk for complications, including dehiscence with multiple risk factors including recent severe illness, recent steroid use (on 6m dexamethasone at time of admission) diabetes, obesity 2. ABLA - patient asymptomatic - AM labs pending, Hgb stable for 48 hours. No signs of active bleeding (drain looks clear, still has good output, abd soft, vss) - therapeutic lovenox started yesterday for recent h/o B subsegmental PE, DVT. This does increase the patient's risk of post op bleeding. 3. malnutrition - tolerating soft diet today. Nutrition following. Protein supplements encouraged. 4. recent admission (discharged 07/18) for covid, acute hypoxic respiratory failure, s pneumo bacteremia, B subsegmental pulmonary emboli, and diabetes, h/o COPD - as per medical team - caitlin removed, 07/24 - Encourage IS, encourage increased activity. Consider PT/OT consult. The patient is slowly improving, her status is guarded. Surgery will continue to follow closely.
[2025-07-25 06:34] LABS: HCT - HEMATOCRIT 33.2 % (37.0-47.0); HGB - HEMOGLOBIN 10.6 g/dL (12.0-16.0); MEAN PLATELET VOLUME 10.2 fL (7.9-10.8); PLT - PLATELET COUNT 615 10^3/uL (130-450); RED CELL DISTRIBUTION WIDTH 13.7 % (12.0-15.0)
[2025-07-25 06:44] LABS: ABNORMAL LYMPHS % (MANUAL) 0 %; BASOPHILS # (MANUAL) 0.0 10^3/uL (0-0.1); EOSINOPHILS # (MANUAL) 0.0 10^3/uL (0-0.7)
--- NOTE | 2025-07-25 07:05 | ECHO Report ---
Version: 1 Study ID: [id number] Adult Echocardiogram Report Name: ABEL Lopez Study Date: 07/24/2025, 7: 32 AM BP: 151 / 84 mmHg Patient Location: [id number] HR: 75 bpm : 1950 (MM/DD/YYYY) Gender: Female Height: 64 in Age: 74 Years Weight: 184 lb BSA: 1.89 m² Reason For Study: gram pos bacteremia History: Technically difficult study-Supine, Lung artifact and heavy breathing. Interpretation Summary Global left ventricular systolic function is normal. The visual left ventricular ejection fraction is estimated at 55 to 60%. The overall diastolic pattern is one of normal left ventricular relaxation and filling pressures. The right ventricle is normal in size and function. No concerning cardiac valve disease. Left Ventricle: The left ventricle is normal in size. No thrombus seen in the left ventricle. The visual left ventricular ejection fraction is estimated at 55 to 60%. Global left ventricular systolic function is normal. The overall diastolic pattern is one of normal left ventricular relaxation and filling pressures. Right Ventricle: The right ventricle is normal in size and function. TAPSE is consistent with normal right ventricular function. The tricuspid annular plane systolic excursion (TAPSE) measurement is 2.0 cm. Aortic Valve: The aortic valve is normal. The aortic valve is trileaflet. No hemodynamically significant valvular aortic stenosis. No aortic regurgitation is present. Mitral Valve: The mitral valve is visually normal in structure and function. No evidence of mitral stenosis is seen. There is trace mitral regurgitation. Tricuspid Valve: The tricuspid valve is structurally normal. There is no tricuspid stenosis. Trace tricuspid regurgitation present. Pulmonic Valve: The pulmonic valve is not well seen. There is no pulmonic valvular stenosis. Left Atrium: The left atrial size is normal. Right Atrium: Right atrial size is normal. The inferior vena cava is not well visualized. The central venous pressure cannot be estimated on this study. Atrial Septum: The interatrial septum appears normal, without evidence of shunt by 2D imaging and color Doppler. Aorta: The ascending aorta is borderline dilated. The sinuses of Valsalva are normal in size. Pulmonary Artery: The pulmonary artery is not well visualized, but is probably normal size. Pulmonary artery systolic pressure could not be estimated due to an insufficient tricuspid regurgitant jet. Pericardium/Pleural Space: There is no pericardial effusion. Left Ventricle IVSd: 1.03 cm LVIDd: 4.8 cm LVPWd: 1.01 cm LVIDs: 3.4 cm ESV(sp4-el): 37.7 ml Right Ventricle TAPSE: 2.05 cm RV S Roberto: 16.8 cm/sec Atria LA dimension: 4.2 cm LAV(MOD-sp4): 51.9 ml LAV(MOD-sp2): 48.6 ml Diastolic Function MV dec time: 0.27 sec MV E max roberto: 80.5 cm/sec MV A max roberto: 117.4 cm/sec Aortic Valve LVOT diam: 2.10 cm LV V1 mean P.33 mmHg LV V1 mean: 73.4 cm/sec LV V1 VTI: 22.2 cm Ao V2 VTI: 31.1 cm Ao mean P.7 mmHg Ao V2 mean: 120.3 cm/sec LV V1 max: 94.7 cm/sec LV V1 max P.6 mmHg Ao max P.9 mmHg Ao V2 max: 172.4 cm/sec Mitral Valve MV max P.9 mmHg MV V2 max: 131.5 cm/sec MV mean P.6 mmHg MV V2 mean: 75.4 cm/sec MV V2 VTI: 31.7 cm Aorta Ao root diam: 3.4 cm MMode/2D Measurements & Calculations Ao root diam: 3.4 cm BMI: 31.6 kilograms/m² BSA([facility]): 1.97 m² ESV(sp4-el): 37.7 ml IVSd: 1.03 cm LA A4C-A/L: 12.8 cm² LA dimension: 4.2 cm LA ESV-A/L: 31.8 ml LA Vol Index: 40.6 ml/m² LAV(MOD-sp2): 48.6 ml LAV(MOD-sp4): 51.9 ml LVIDd: 4.8 cm LVIDs: 3.4 cm LVOT diam: 2.10 cm LVPWd: 1.01 cm RA A4Cs: 13.8 cm² TAPSE: 2.05 cm Doppler Measurements & Calculations Ao max P.9 mmHg Ao mean P.7 mmHg Ao V2 max: 172.4 cm/sec Ao V2 mean: 120.3 cm/sec Ao V2 VTI: 31.1 cm Lat E/e': 7.9 LV V1 max: 94.7 cm/sec LV V1 max P.6 mmHg LV V1 mean: 73.4 cm/sec LV V1 mean P.33 mmHg LV V1 VTI: 22.2 cm Med E/e': 13.5 MV A max roberto: 117.4 cm/sec MV dec time: 0.27 sec MV DVI-pr: 0.69 MV E max roberto: 80.5 cm/sec MV max P.9 mmHg MV mean P.6 mmHg MV V2 max: 131.5 cm/sec MV V2 mean: 75.4 cm/sec MV V2 VTI: 31.7 cm RV S Roberto: 16.8 cm/sec Other Measurements & Calculations Ao root area: 9.2 cm² ADRIANA(I,D): 2.47 cm² ADRIANA(V,D): 1.90 cm² EDV(Teich): 107.7 ml EF(sp-el): 50.0 % EF(Teich): 54.6 % ESV(Teich): 48.8 ml FS: 28.3 % LVOT area: 3.5 cm² MV E/A: 0.69 MVA(VTI): 2.42 cm² SV(LVOT): 76.8 ml MD Mariangel Romero 07/25/2025, 7: 04 AM Ordering Physician: Aspen Horvath Referring Physician: Ashvin Eng Performed By: LURDES
[2025-07-25 07:25] LABS: BAND NEUTROPHILS % (MANUAL) 1 %; LYMPHOCYTES # (MANUAL) 1.6 10^3/uL (1.5-3.5); LYMPHOCYTES % (MANUAL) 5 %; MONOCYTES # (MANUAL) 1.0 10^3/uL (0.0-1.0); MYELOCYTES % (MANUAL) 1 %; NEUTROPHILS # (MANUAL) 29.1 10^3/uL (1.5-6.6); PLATELET ESTIMATE, MANUAL INCREASED (>450,000) (NORMAL); RBC MORPHOLOGY (MULTIPLE) 1+ ANISOCYTOSIS (NORMAL)
[2025-07-25] MEDS: ONDANSETRON 4 MG/2 ML VIAL IVP PRN (08:34)
[2025-07-25] MEDS: ENOXAPARIN 80 MG/0.8 ML SYRINGE SUBQ SCH (09:04)
[2025-07-25 09:17] LABS: BUN - BLOOD UREA NITROGEN 15.0 mg/dL (6-20); CARBON DIOXIDE - CO2 27.0 mmol/L (21-32); CREATININE 0.5 mg/dL (0.6-1.3)
[2025-07-25 09:18] LABS: GFR - MDRD 121.0 (>89)
[2025-07-25] MEDS ORDERED: COD LIVER OIL/ZINC OXIDE 113 GM TUBE TOP PRN (12:25)
--- NOTE | 2025-07-25 22:21 | XRAY Report ---
PROCEDURE: XR Abdomen 1 V INDICATIONS: vomiting TECHNIQUE: One view of the abdomen acquired. COMPARISON: None. FINDINGS: Surgical changes and devices: Surgical clips in the left upper quadrant. Possible surgical drain in the pelvis Bowel: Prominent small bowel gaseous distention measures up to 4.2 cm Soft tissues: No suspicious abdominal calcifications. Visualized solid organ contours appear normal in size. Bones: Degenerative lumbar spine with scoliosis IMPRESSION: Gaseous small bowel distention may reflect postop ileus or developing obstruction. Continued follow-up to resolution Reviewed by: Matt Murray MD on 07/25/2025 9:20 PM AKMARILYN Approved by: Matt Murray MD on 07/25/2025 9:20 PM AKDT Station ID: [id number]
--- NOTE | 2025-07-25 22:26 | PROVIDER PROGRESS NOTE ---
Subjective Prog Note Date Prog Note Date: 07/25/25 Subjective Subjective: she had a rough morning. started to eat breakfast (but did not really feel up to it), then vomited after a few bites. This was large volume emesis. She then has slept much of the day. I am not able to get in to change the wound vac until about 8pm. At that time, she has been awake for several hours, feeling a bit better, and has eaten 25% of her dinner. She was changed to a full liquid diet after her vomiting episode. Current Medications Current Medications Current Medications: Current Medications Generic Name Dose Route Start Last Admin Trade Name Freq PRN Reason Stop Dose Admin Acetaminophen 650 mg 07/24/25 13:00 07/25/25 21:52 Acetaminophen 325 Mg Tablet PO 650 mg Q4HR TAJ Administration Albuterol 2.5 mg 07/21/25 22:50 Albuterol Neb 2.5 Mg/3 Ml INH Q4HR PRN Wheezing Enoxaparin Sodium 80 mg 07/25/25 09:00 07/25/25 09:04 Enoxaparin 80 Mg/0.8 Ml Syringe SUBQ 80 mg DAILY TAJ Administration Gabapentin 100 mg 07/24/25 14:00 07/25/25 21:53 Gabapentin 100 Mg Capsule PO 100 mg TID TAJ Administration Hydromorphone HCl 0.5 mg 07/23/25 13:01 07/25/25 20:23 Hydromorphone 0.5 Mg/0.5 Ml Syringe IVP 0.5 mg Q2H PRN Administration Breakthrough Pain Hydroxyzine Pamoate 25 mg 07/23/25 20:22 07/25/25 21:53 Hydroxyzine Pamoate 25 Mg Capsule PO 25 mg QPM PRN Administration Insomnia Piperacillin Sod/Tazobactam 100 mls @ 200 mls/hr 07/21/25 23:00 07/25/25 18:10 Sod 3.375 gm/ Sodium Chloride IV Infused Q6H [facility] Infusion Insulin Human Lispro 1 - 5 unit 07/24/25 08:00 07/25/25 21:58 Insulin Lispro 300 Unit/3 Ml Pen SUBQ Not Given 0800,1200,1700,2100 [facility] Protocol Lisinopril 20 mg 07/25/25 09:00 07/25/25 12:19 Lisinopril 20 Mg Tablet PO Not Given DAILY TAJ Lorazepam 2 mg 07/23/25 22:00 07/23/25 22:10 Lorazepam 1 Mg Tablet PO 2 mg Q4H PRN Administration Anxiety Ondansetron HCl 4 mg 07/21/25 22:50 07/25/25 08:34 Ondansetron 4 Mg/2 Ml Vial IVP 4 mg Q6HR PRN Administration Nausea / Vomiting Oxycodone HCl 5 mg 07/24/25 09:29 07/25/25 21:56 Oxycodone 5 Mg Tablet PO 5 mg Q4HR PRN Administration Severe Pain (Level 7-10) Pantoprazole Sodium 40 mg 07/22/25 07:00 07/25/25 06:29 Pantoprazole 40 Mg Vial IVP 40 mg QDAC TAJ Administration Polyethylene Glycol 17 gm 07/26/25 09:00 Polyethylene Glycol 3350 17 Gm Packet PO DAILY TAJ Sodium Chloride 10 ml 07/22/25 01:00 07/25/25 17:43 Sodium Chloride Flush 0.9% 10 Ml Syringe IVP 10 ml 0100,0900,1700 TAJ Administration Sodium Chloride 10 ml 07/21/25 22:50 07/25/25 20:23 Sodium Chloride Flush 0.9% 10 Ml Syringe IVP 10 ml PRN PRN Administration NEEDED PER PROVIDER ORDERS Venlafaxine HCl 75 mg 07/24/25 09:00 07/25/25 12:19 Venlafaxine Er 75 Mg Capsule PO Not Given DAILY TAJ Zinc Oxide 113 gm 07/25/25 12:25 Cod Liver Oil/Zinc Oxide 113 Gm Tube TOP PRN PRN Skin Care Objective Vital Signs/Intake & Output Reviewed Vital Signs: Yes Vital Signs: Vital Signs x48h Temp Pulse Resp BP Pulse Ox 07/25/25 20:55 37.2 C 88 21 152/80 H 98 07/25/25 16:06 36.5 C 89 20 133/75 H 94 Intake & Output: Intake & Output 07/22/25 07/23/25 07/24/25 07/25/25 23:59 23:59 23:59 23:59 Intake Total 5983 / 5983 5236 / 5236 1780 / 1780 1660 / 1660 Output Total 1347 / 1347 1403 / 1403 990 / 990 850 / 850 Balance 4636 / 4636 3833 / 3833 790 / 790 810 / 810 Weight (kg) 86.5 kg 87.5 kg 91 kg 92.5 kg Objective General Appearance: positive No acute distress and Alert Eyes Bilateral: positive Normal inspection ENT: positive ENT inspection nml and Other (edentulous) Neck: positive Nml inspection and Other (left IJ central line intact. ) Respiratory: positive Chest non-tender and Breath sounds nml Cardiovascular: positive Regular rate & rhythm Abdomen: positive Other (NERISSA drainage, tends toward serous, scant drainage from wound vac, stoma viable with some bits of formed stool in the bag. ) Back: positive Nml inspection Skin: positive Color nml Extremities: positive Non-tender and No pedal edema Neurologic/Psychiatric: positive Oriented x3 Lab Results 07/25/25 04:58 07/25/25 06:35 Other Labs: Lab Results x24hrs 07/25/25 07/25/25 07/25/25 Range/Units 20:41 17:15 11:36 WBC (4.8-10.8) x10^3/uL RBC (4.20-5.40) 10^6/uL Hgb (12.0-16.0) g/dL Hct (37.0-47.0) % MCV (81.0-99.0) fL MCH (27.0-31.0) pg MCHC (32.0-36.0) g/dL RDW (12.0-15.0) % Plt Count (130-450) 10^3/uL MPV (7.9-10.8) fL Neut # (Auto) Lymph # (Auto) Mora # (Auto) Eos # (Auto) Baso # (Auto) Absolute Nucleated RBC Total Counted Band Neuts % (Manual) (0 - 10) % Abnorm Lymph % (Manual) % Myelocytes % ( - 0) % Nucleated RBC % Neutrophils # (Manual) (1.5-6.6) 10^3/uL Lymphocytes # (Manual) (1.5-3.5) 10^3/uL Monocytes # (Manual) (0.0-1.0) 10^3/uL Eosinophils # (Manual) (0-0.7) 10^3/uL Basophils # (Manual) (0-0.1) 10^3/uL Differential Comment Platelet Estimate (NORMAL) RBC Morph Micro Appear (NORMAL) Sodium (135-145) mmol/L Potassium (3.5-4.5) mmol/L Chloride (101-111) mmol/L Carbon Dioxide (21-32) mmol/L Anion Gap (6-13) BUN (6-20) mg/dL Creatinine (0.6-1.3) mg/dL Estimated GFR (MDRD) (>89) Glucose (74-104) mg/dL POC Whole Bld Glucose 96 99 106 (70-100) mg/dL Calcium (8.5-10.3) mg/dL 07/25/25 07/25/25 07/25/25 Range/Units 07:35 06:35 04:58 WBC 32.0 H (4.8-10.8) x10^3/uL RBC 3.63 L (4.20-5.40) 10^6/uL Hgb 10.6 L (12.0-16.0) g/dL Hct 33.2 L (37.0-47.0) % MCV 91.5 (81.0-99.0) fL MCH 29.2 (27.0-31.0) pg MCHC 31.9 L (32.0-36.0) g/dL RDW 13.7 (12.0-15.0) % Plt Count 615 H (130-450) 10^3/uL MPV 10.2 (7.9-10.8) fL Neut # (Auto) Not Reportable Lymph # (Auto) Not Reportable Mora # (Auto) Not Reportable Eos # (Auto) Not Reportable Baso # (Auto) Not Reportable Absolute Nucleated RBC Not Reportable Total Counted 100 Band Neuts % (Manual) 1 (0 - 10) % Abnorm Lymph % (Manual) 0 % Myelocytes % 1 H ( - 0) % Nucleated RBC % Not Reportable Neutrophils # (Manual) 29.1 H (1.5-6.6) 10^3/uL Lymphocytes # (Manual) 1.6 (1.5-3.5) 10^3/uL Monocytes # (Manual) 1.0 (0.0-1.0) 10^3/uL Eosinophils # (Manual) 0.0 (0-0.7) 10^3/uL Basophils # (Manual) 0.0 (0-0.1) 10^3/uL Differential Comment MANUAL DIFFERENTIAL Platelet Estimate INCREASED (>450,000) (NORMAL) RBC Morph Micro Appear 1+ ANISOCYTOSIS (NORMAL) Sodium 137 (135-145) mmol/L Potassium 3.8 (3.5-4.5) mmol/L Chloride 100 L (101-111) mmol/L Carbon Dioxide 27 (21-32) mmol/L Anion Gap 10.0 (6-13) BUN 15 (6-20) mg/dL Creatinine 0.5 L (0.6-1.3) mg/dL Estimated GFR (MDRD) 121 (>89) Glucose 98 (74-104) mg/dL POC Whole Bld Glucose 106 (70-100) mg/dL Calcium 8.2 L (8.5-10.3) mg/dL Diagnostic Imaging Diagnostic Imaging Comments: 1 view abdominal XR- completed not read. discussed with Dr Valles of Gen Surg, as well as film reviewed myself. looks like several distended bowel loops. Other Results/Comments Other Results/Comments: Cultures: intraop cultures: Many GPC, Mod GNR: E coli 1+ growth, strep viridans. This E coli is lindsey sensitive. 07/21: PCR blood culture neg, GN bacilli in anaerobic bottle, but not PCR ID- and no growth on anaerobic plates as of 07/25- more to follow Strep pneumo in blood cultures from 07/16. ABX Reporting Has patient been on IV antibiotics over the past 48 hours?: Yes Sepsis Event Note (H) Evaluation Current Stage of Sepsis: Sepsis Possible source of Sepsis: positive GI tract/intra-abdominal Sepsis Criteria Sepsis Criteria: WBC count greater than 10% bands and WBC count greater than 12,000 or less than 4000 Assessment/Plan Problem List (1) Sepsis: Impression: Presents to the emergency department with complaints of vomiting, lumps on her abdomen with a recent history of being COVID-positive. Initial chest x-ray in the emergency department showed free air under the diaphragm bilaterally. Vital signs initially showed tachycardia and tachypnea with normal oxygen saturations on room air and no hypotension. Patient did deteriorate while she was in the emergency department and just prior to going to the operating room was starting to have some respiratory failure. Her labs showed an acute kidney injury, elevated lactate and a profound leukocytosis. CT was positive for perforation of hollow viscus. General surgery was contacted emergently from the emergency department. she was taken to the operating room immediately. Dr. Swann found a perforated sigmoid diverticulitis and performed a Aly's procedure. She is now POD #4. I have started this patient on Zosyn. MRSA screen is negative. She has been fever free for about 2 days WBC is increased today. 07/21/25 07/22/25 07/23/25 17:15 06:09 04:35 WBC 36.8 H* 44.7 H* 27.8 H 07/24/25 05:31 WBC 28.0 H 07/25/25 04:58 WBC 32.0 H extubated 07/23, had tolerated diet, but vomited this AM. Diet reduced to full liquids. . seen by PT and recommendation is for SNF. She is not medically clear. Her sepsis is of intraabdominal source and not related to her recent COVID infection. She has absolutely no respiratory symptoms. (2) Perforation of sigmoid colon due to diverticulitis: Impression: POD #4 exploratory laparotomy with Armando's procedure and washout of abdomen. Colostomy in place. NERISSA drainage is progressively less bloody. perforation was subacute. much inflammatory tissue within the abdomen. thoroughly washed out. Her abdominal fascia is closed, but of poor quality. reviewed care with Dr Valles, general surgeon this AM. Stoma viable with output. But vomiting. Back to full liquids. The abdominal XR done mid morning shows some distended bowel loops, I think she is having delayed return of bowel function. She is maintained on Zosyn. Plan on at least 4 days, post surgical source control, but dependent on her clinical status and the improvement of her sepsis syndrome. With WBC being markedly elevated, no indication to stop antibiosis. (3) RICCARDO (acute kidney injury): Impression: Baseline creatinine is between 0.7 and 0.9. She presents with a creatinine of 1.5 indicating that her creatinine is roughly double that of baseline. I believe this is acute kidney injury secondary to overwhelming sepsis of abdominal origin. She is now with surgical source control. This improved very rapidly. resolved, however checking BMP daily in light of sepsis that is not completely controlled at this time. (4) Pulmonary embolus: Impression: CTA 07/16 with subsegmental PE bilat lower lobes, no signs of R heart strain (but another reason to get an echo this admit- no signs on echo either). Also seen was LLL infiltrate. followup venous duplex bilateral lower ext showed no DVT but there is Right greater saphenous vein thrombus. Typically greater saphenous vein thrombus is treated as a DVT if it is close to the saphenofemoral junction (within 3 cm) as this poses a higher risk of progression to DVT or PE. Given that she already has a PE, Dr Valles and I agreed that, with stable Hgb, she can start therapeutic lovenox. Pharmacy has assisted with dosing (80mg daily). Started 07/24. I will maintain this until surgical plan is totally set. She may need to return to OR for skin closure, but cannot do so until we know that there is not active intraabdominal process. (5) Diabetes: Impression: Aim to keep blood sugars less than 180. Her diabetes therapy at home consists of Lantus insulin 15 units every evening. Last hemoglobin A1c several days ago was 6.3% indicating good control. I have placed her on sliding scale insulin and per her blood sugars overnight, I am resuming her home lantus dosing. She came to us on dexamethasone 6 mg daily. This was prescribed at hospital discharge for 5 days. I do not think she has been on steroids long enough to cause adrenal insufficiency. At this point I am going to hold further steroids in favor of good tissue healing. The trend is towards blood sugar control that is much improved. LAntus held this evening for blood sugar in the low 90's at HS. likely due to downgraded diet with minimal intake today. She has SSI as needed. Laboratory Tests 07/24/25 07/25/25 07/25/25 21:21 07:35 11:36 POC Whole Bld Glucose 109 106 106 07/25/25 07/25/25 17:15 20:41 POC Whole Bld Glucose 99 96 (6) Bacteremia due to Streptococcus pneumoniae: Impression: Previous admission from 07/16/2025 to 07/18/2025. Blood cultures were drawn this admission. Patient had a pneumonia, community-acquired. She finished a 3-day course of azithromycin and was discharged home on Augmentin. Her blood cultures subsequently were positive for strep pneumo. She was called by the emergency department but unfortunately missed the calls because she was sleeping due to feeling so poorly. The Zosyn prescribed for her intra-abdominal infection should cover her strep pneumo bacteremia. Duration of treatment is dependent upon her overall clincal picture. Echo done no valvular disease. . (7) Community acquired pneumonia: Impression: CTA of the chest on July 16 does show a left lower lobe infiltrate. She was prescribed Augmentin upon discharge from the hospital. I am continuing Zosyn which should be adequate coverage for community-acquired pneumonia. She has received azithromycin x 3 days at the time of her previous hospitalization. She does not have any abnormal breath sounds on lung auscultation. She is breathing room air and doing well. (8) COVID: Impression: positive for COVID on 16 July. symptoms started on 07/12. 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 She does not seem to be symptomatic with her COVID at this time. This patient's diagnosis and treatment plan was discussed this AM with attending physician as a part of multi disciplinary rounding meeting. I have spent 52 minutes in the care of this patient today. This includes time [id number], review and ordering of diagnostic imaging and laboratory studies and consultation with other providers. Monitoring the patient's signs symptoms, evaluation of medication effectiveness and patient's response to treatment. This is exclusive of time spent changing wound vac.
--- NOTE | 2025-07-25 22:29 | PROCEDURE REPORT ---
Hospitalist Procedure Note Procedure Note Procedure Note: Wound vac application. Complicated abdominal wound, POD #4, Aly's procedure for perforated sigmoid diverticulitis with free air and extensive fecal soilage. Facial sutures not thoroughly palpated as there is tissue growth over them. there is no undermining or tunnels present at this time. no bleeding, just slight ooze. The wound measures 23cm long, 3.5cm at deepest point and 3 cm wide at widest point. wound calculated to be about 69 cm2. Black sponge was cut to fit the wound in multiple pieces. The wound edges were prepped with no sting skin prep. care was taken not to have contact of foam with intact skin, and complete coverage of wound bed with foam. sponge was carefully sealed with drape, taking care to avoid stoma wafer and RLQ NERISSA site. Trac pad was applied and vac was set to 125mmHg suction (standard setting). no leaks were detected. Plan to change this wound vac again in about 72 hours, and proceed with replacement or delayed primary closure. CPT 97667
[2025-07-26 05:13] LABS: HCT - HEMATOCRIT 27.8 % (37.0-47.0); HGB - HEMOGLOBIN 8.8 g/dL (12.0-16.0); MEAN PLATELET VOLUME 9.6 fL (7.9-10.8); PLT - PLATELET COUNT 601 10^3/uL (130-450); RED CELL DISTRIBUTION WIDTH 13.8 % (12.0-15.0)
[2025-07-26 05:22] LABS: BUN - BLOOD UREA NITROGEN 13.0 mg/dL (6-20); CARBON DIOXIDE - CO2 30.0 mmol/L (21-32); CREATININE 0.5 mg/dL (0.6-1.3); GFR - MDRD 121.0 (>89)
[2025-07-26 05:32] LABS: ABNORMAL LYMPHS % (MANUAL) 0 %; BASOPHILS # (MANUAL) 0.0 10^3/uL (0-0.1); EOSINOPHILS # (MANUAL) 0.0 10^3/uL (0-0.7)
[2025-07-26 05:50] LABS: BAND NEUTROPHILS % (MANUAL) 2 %; LYMPHOCYTES # (MANUAL) 1.0 10^3/uL (1.5-3.5); LYMPHOCYTES % (MANUAL) 4 %; MONOCYTES # (MANUAL) 1.8 10^3/uL (0.0-1.0); NEUTROPHILS # (MANUAL) 23.1 10^3/uL (1.5-6.6); PLATELET ESTIMATE, MANUAL INCREASED (>450,000) (NORMAL); PLATELET MORPHOLOGY NORMAL APPEARANCE (NORMAL); RBC MORPHOLOGY (MULTIPLE) NORMAL APPEARANCE (NORMAL); WBC MORPHOLOGY (MULTIPLE) NORMAL APPEARANCE (NORMAL)
--- NOTE | 2025-07-26 07:54 | PROVIDER PROGRESS NOTE ---
Subjective General Admit Date: 07/21/25 Other Other Information/Narrative: Pain controlled. Wound vac changed yesterday. Patient had an episode of vomiting yesterday AM, diet decreased. Denies pain, nausea this AM. She has been out of bed to the chair. Exam Exam Vital Signs: Vital Signs x48h Temp Pulse Pulse Resp BP BP Pulse Ox 07/26/25 08:18 97.9 F 82 18 150/79 H 93 07/26/25 04:57 99.0 F 86 20 158/72 H 93 Gen: NAD, alert and oriented CV: RRR Pulm: non labored, on RA Abd: soft, ND, fascia closed, wound vac in subcu with good seal, minimal output. NERISSA with 35mL serous ouptut in last 24 hours. Ostomy pink with edema and gas and stool in bag. Increased ostomy output in last 24 hours. Ext: trace B LE edema Impression/Plan Problem List (1) Sepsis: (2) Perforation of sigmoid colon due to diverticulitis: (3) RICCARDO (acute kidney injury): (4) Pulmonary embolus: (5) Bacteremia due to Streptococcus pneumoniae: (6) Community acquired pneumonia: (7) COVID: Plan 74 y/o F with: 1. perforated diverticulitis with purulent peritonitis - patient presented with free air on CT - POD#5, emergently taken to OR on 07/21, underwent exploratory laparotomy, lysis of adhesions, sigmoid colectomy, and end colostomy, partial omentectomy for ischemic omentum, abdominal washout, and pelvic drain placement - extubated on 07/23 - cultures taken in OR, abd cultures grew lindsey sensitive e coli and strep vir idans. Blood cx with gram negative bacilli in 1/2 at two days (no updates this AM). Additional culture results and pathology pending. Patient on zosyn and flagyl for intraabdominal infection (appropriate coverage for identified organisms). - leukocytosis persistent, slightly decreased today with multiple factors contributing including recent steroid use, stress response, and intraabdominal infection (source control at surgery). Continue to follow. VSS and afebrile for last 24 hours. If WBC continues to be elevated, likely repeat CT in next day or two. - ostomy pink with edema, stool in bag. - fascia closed, subcu with wound vac in place, excellent seal, minimal output, change on Friday. Abdominal binder in place. Plan for delayed primary closure of subcu when leukocytosis improved. - I remain concerned that patient is high risk for complications, including dehiscence with multiple risk factors including recent severe illness, recent steroid use (on 6m dexamethasone at time of admission) diabetes, obesity 2. ABLA - patient asymptomatic - Hgb labile on labs, repeat at 1200 today. No signs of active bleeding (drain looks clear, still has good output, abd soft, vss) - therapeutic lovenox started 07/24 for recent h/o B subsegmental PE, DVT. This does increase the patient's risk of post op bleeding. 3. malnutrition - tolerating liquid diet today. Nutrition following. Protein supplements encouraged. - ok to adat to soft diet again, encourage patient to back off if feeling full/nauseated. 4. recent admission (discharged 07/18) for covid, acute hypoxic respiratory failure, s pneumo bacteremia, B subsegmental pulmonary emboli, and diabetes, h/o COPD - as per medical team - tucker removed, 07/24 - Encourage IS, encourage increased activity. PT recommending SNF on discharge. The patient is slowly improving, her status is guarded. Surgery will continue to follow closely.
[2025-07-26] MEDS: MULTIVITAMIN W/MINERALS TABLET PO SCH (12:09)
--- NOTE | 2025-07-26 19:18 | PROVIDER PROGRESS NOTE ---
Subjective Prog Note Date Prog Note Date: 07/26/25 Subjective Subjective: She is doing well. Sitting up and eating [employer] breakfast with her grand daughter when I came by this AM. This afternoon, she is sleeping. pain controlled. no vomiting. Current Medications Current Medications Current Medications: Current Medications Generic Name Dose Route Start Last Admin Trade Name Freq PRN Reason Stop Dose Admin Acetaminophen 650 mg 07/24/25 13:00 07/26/25 17:51 Acetaminophen 325 Mg Tablet PO 650 mg Q4HR TAJ Administration Albuterol 2.5 mg 07/21/25 22:50 Albuterol Neb 2.5 Mg/3 Ml INH Q4HR PRN Wheezing Enoxaparin Sodium 80 mg 07/25/25 09:00 07/26/25 08:23 Enoxaparin 80 Mg/0.8 Ml Syringe SUBQ 80 mg DAILY TAJ Administration Gabapentin 100 mg 07/24/25 14:00 07/26/25 14:14 Gabapentin 100 Mg Capsule PO 100 mg TID TAJ Administration Hydromorphone HCl 0.5 mg 07/23/25 13:01 07/25/25 20:23 Hydromorphone 0.5 Mg/0.5 Ml Syringe IVP 0.5 mg Q2H PRN Administration Breakthrough Pain Hydroxyzine Pamoate 25 mg 07/23/25 20:22 07/25/25 21:53 Hydroxyzine Pamoate 25 Mg Capsule PO 25 mg QPM PRN Administration Insomnia Piperacillin Sod/Tazobactam 100 mls @ 200 mls/hr 07/21/25 23:00 07/26/25 19:00 Sod 3.375 gm/ Sodium Chloride IV Infused Q6H TAJ Infusion Insulin Human Lispro 1 - 5 unit 07/24/25 08:00 07/26/25 16:59 Insulin Lispro 300 Unit/3 Ml Pen SUBQ Not Given 0800,1200,1700,2100 [facility] Protocol Lisinopril 20 mg 07/25/25 09:00 07/26/25 08:24 Lisinopril 20 Mg Tablet PO 20 mg DAILY TAJ Administration Lorazepam 2 mg 07/23/25 22:00 07/26/25 08:23 Lorazepam 1 Mg Tablet PO 2 mg Q4H PRN Administration Anxiety Multivitamins/Minerals 1 tab 07/26/25 12:00 07/26/25 12:09 Multivitamin W/Minerals Tablet PO 1 tab DAILYWM TAJ Administration Ondansetron HCl 4 mg 07/21/25 22:50 07/25/25 08:34 Ondansetron 4 Mg/2 Ml Vial IVP 4 mg Q6HR PRN Administration Nausea / Vomiting Oxycodone HCl 5 mg 07/24/25 09:29 07/26/25 08:24 Oxycodone 5 Mg Tablet PO 5 mg Q4HR PRN Administration Severe Pain (Level 7-10) Pantoprazole Sodium 40 mg 07/22/25 07:00 07/26/25 06:35 Pantoprazole 40 Mg Vial IVP 40 mg QDAC TAJ Administration Polyethylene Glycol 17 gm 07/26/25 09:00 07/26/25 08:23 Polyethylene Glycol 3350 17 Gm Packet PO 17 gm DAILY TAJ Administration Sodium Chloride 10 ml 07/22/25 01:00 07/26/25 16:59 Sodium Chloride Flush 0.9% 10 Ml Syringe IVP 10 ml 0100,0900,1700 TAJ Administration Sodium Chloride 10 ml 07/21/25 22:50 07/26/25 06:37 Sodium Chloride Flush 0.9% 10 Ml Syringe IVP 10 ml PRN PRN Administration NEEDED PER PROVIDER ORDERS Venlafaxine HCl 75 mg 07/24/25 09:00 07/26/25 08:24 Venlafaxine Er 75 Mg Capsule PO 75 mg DAILY TAJ Administration Zinc Oxide 113 gm 07/25/25 12:25 Cod Liver Oil/Zinc Oxide 113 Gm Tube TOP PRN PRN Skin Care Objective Vital Signs/Intake & Output Reviewed Vital Signs: Yes Vital Signs: Vital Signs x48h Temp Pulse Resp BP BP Pulse Ox 07/26/25 16:05 36.8 C 79 24 157/81 H 92 07/26/25 12:20 36.6 C 91 16 138/70 H 94 Intake & Output: Intake & Output 07/23/25 07/24/25 07/25/25 07/26/25 23:59 23:59 23:59 23:59 Intake Total 5236 / 5236 1780 / 1780 1660 / 1660 810 / 810 Output Total 1403 / 1403 990 / 990 850 / 850 425 / 425 Balance 3833 / 3833 790 / 790 810 / 810 385 / 385 Weight (kg) 87.5 kg 91 kg 92.5 kg 93.5 kg Objective General Appearance: positive No acute distress and Alert Eyes Bilateral: positive Normal inspection ENT: positive ENT inspection nml and Other (edentulous) Neck: positive Nml inspection and Other (left IJ central line intact. ) Respiratory: positive Chest non-tender and Breath sounds nml Cardiovascular: positive Regular rate & rhythm Abdomen: positive Other (NERISSA drainage, tends toward serous, scant drainage from wound vac, stoma viable with liquid bilious drainage, no stool today ) Back: positive Nml inspection Skin: positive Color nml Extremities: positive Non-tender and No pedal edema Neurologic/Psychiatric: positive Oriented x3 Lab Results 07/26/25 12:05 07/26/25 04:15 Other Labs: Lab Results x24hrs 07/26/25 07/26/25 07/26/25 Range/Units 16:47 12:05 11:18 WBC (4.8-10.8) x10^3/uL RBC (4.20-5.40) 10^6/uL Hgb 9.7 L (12.0-16.0) g/dL Hct (37.0-47.0) % MCV (81.0-99.0) fL MCH (27.0-31.0) pg MCHC (32.0-36.0) g/dL RDW (12.0-15.0) % Plt Count (130-450) 10^3/uL MPV (7.9-10.8) fL Neut # (Auto) Lymph # (Auto) [place] # (Auto) Eos # (Auto) Baso # (Auto) Absolute Nucleated RBC Total Counted Band Neuts % (Manual) (0 - 10) % Abnorm Lymph % (Manual) % Nucleated RBC % Neutrophils # (Manual) (1.5-6.6) 10^3/uL Lymphocytes # (Manual) (1.5-3.5) 10^3/uL Monocytes # (Manual) (0.0-1.0) 10^3/uL Eosinophils # (Manual) (0-0.7) 10^3/uL Basophils # (Manual) (0-0.1) 10^3/uL Differential Comment WBC Morphology (NORMAL) Platelet Estimate (NORMAL) Platelet Morphology (NORMAL) RBC Morph Micro Appear (NORMAL) Sodium (135-145) mmol/L Potassium (3.5-4.5) mmol/L Chloride (101-111) mmol/L Carbon Dioxide (21-32) mmol/L Anion Gap (6-13) BUN (6-20) mg/dL Creatinine (0.6-1.3) mg/dL Estimated GFR (MDRD) (>89) Glucose (74-104) mg/dL POC Whole Bld Glucose 117 123 (70-100) mg/dL Calcium (8.5-10.3) mg/dL 07/26/25 07/26/25 07/25/25 Range/Units 07:44 04:15 20:41 WBC 26.0 H (4.8-10.8) x10^3/uL RBC 3.02 L (4.20-5.40) 10^6/uL Hgb 8.8 L (12.0-16.0) g/dL Hct 27.8 L (37.0-47.0) % MCV 92.1 (81.0-99.0) fL MCH 29.1 (27.0-31.0) pg MCHC 31.7 L (32.0-36.0) g/dL RDW 13.8 (12.0-15.0) % Plt Count 601 H (130-450) 10^3/uL MPV 9.6 (7.9-10.8) fL Neut # (Auto) Not Reportable Lymph # (Auto) Not Reportable [place] # (Auto) Not Reportable Eos # (Auto) Not Reportable Baso # (Auto) Not Reportable Absolute Nucleated RBC Not Reportable Total Counted 100 Band Neuts % (Manual) 2 (0 - 10) % Abnorm Lymph % (Manual) 0 % Nucleated RBC % Not Reportable Neutrophils # (Manual) 23.1 H (1.5-6.6) 10^3/uL Lymphocytes # (Manual) 1.0 L (1.5-3.5) 10^3/uL Monocytes # (Manual) 1.8 H (0.0-1.0) 10^3/uL Eosinophils # (Manual) 0.0 (0-0.7) 10^3/uL Basophils # (Manual) 0.0 (0-0.1) 10^3/uL Differential Comment MANUAL DIFFERENTIAL WBC Morphology NORMAL APPEARANCE (NORMAL) Platelet Estimate INCREASED (>450,000) (NORMAL) Platelet Morphology NORMAL APPEARANCE (NORMAL) RBC Morph Micro Appear NORMAL APPEARANCE (NORMAL) Sodium 136 (135-145) mmol/L Potassium 3.2 L (3.5-4.5) mmol/L Chloride 99 L (101-111) mmol/L Carbon Dioxide 30 (21-32) mmol/L Anion Gap 7.0 (6-13) BUN 13 (6-20) mg/dL Creatinine 0.5 L (0.6-1.3) mg/dL Estimated GFR (MDRD) 121 (>89) Glucose 94 (74-104) mg/dL POC Whole Bld Glucose 95 96 (70-100) mg/dL Calcium 7.8 L (8.5-10.3) mg/dL Diagnostic Imaging Diagnostic Imaging Comments: 1 view abdominal XR- completed not read. discussed with Dr Valles of Gen Surg, as well as film reviewed myself. looks like several distended bowel loops. Other Results/Comments Other Results/Comments: Cultures: intraop cultures: Many GPC, Mod GNR: E coli 1+ growth, strep viridans. This E coli is lindsey sensitive. 07/21: PCR blood culture neg, GN bacilli in anaerobic bottle, but not PCR ID- and no growth on anaerobic plates as of 07/25- more to follow Strep pneumo in blood cultures from 07/16. ABX Reporting Has patient been on IV antibiotics over the past 48 hours?: Yes Sepsis Event Note (H) Evaluation Current Stage of Sepsis: Sepsis Possible source of Sepsis: positive GI tract/intra-abdominal Sepsis Criteria Sepsis Criteria: WBC count greater than 10% bands and WBC count greater than 12,000 or less than 4000 Assessment/Plan Problem List (1) Sepsis: Impression: Presents to the emergency department with complaints of vomiting, lumps on her abdomen with a recent history of being COVID-positive. Initial chest x-ray in the emergency department showed free air under the diaphragm bilaterally. Vital signs initially showed tachycardia and tachypnea with normal oxygen saturations on room air and no hypotension. Patient did deteriorate while she was in the emergency department and just prior to going to the operating room was starting to have some respiratory failure. Her labs showed an acute kidney injury, elevated lactate and a profound leukocytosis. CT was positive for perforation of hollow viscus. General surgery was contacted emergently from the emergency department. she was taken to the operating room immediately. Dr. Swann found a perforated sigmoid diverticulitis and performed a Aly's procedure. She is now POD #5 I have started this patient on Zosyn. MRSA screen is negative. She has been fever free for about 3 days. need to see steady downward trend in the WBC, which has yet to happen. 07/21/25 07/22/25 07/23/25 17:15 06:09 04:35 WBC 36.8 H* 44.7 H* 27.8 H 07/24/25 07/25/25 07/26/25 05:31 04:58 04:15 WBC 28.0 H 32.0 H 26.0 H extubated 07/23, had tolerated diet, but vomited AM 07/25. Diet reduced to full liquids, upgraded again on 07/26 and eating well . seen by PT and recommendation is for SNF. She is not medically clear. Her sepsis is of intraabdominal source and not related to her recent COVID infection. She has absolutely no respiratory symptoms. (2) Perforation of sigmoid colon due to diverticulitis: Impression: POD #5 exploratory laparotomy with Armando's procedure and washout of abdomen. Colostomy in place. NERISSA drainage is progressively less bloody. perforation was subacute. much inflammatory tissue within the abdomen. thoroughly washed out. Her abdominal fascia is closed, but of poor quality. reviewed care with Dr Valles, general surgeon this AM. Stoma viable with output. Seems to be tolerating oral intake well today and diet upgraded. Will keep diet at soft low fiber. She has issues with her teeth and needs things that are simple to chew. She is maintained on Zosyn. She has reached 4 days post surgical source control, but WBC not showing steady downward trend. I am communicating daily with the covering general surgeon. Hgb shows some variation, likely just related to the lab technology. repeated today at noon and likely value this AM was spurious. Would like to avoid iatrogenic anemia. 07/24/25 07/25/25 07/26/25 05:31 04:58 04:15 Hgb 9.7 L 10.6 L 8.8 L 07/26/25 12:05 Hgb 9.7 L (3) RICCARDO (acute kidney injury): Impression: Baseline creatinine is between 0.7 and 0.9. She presents with a creatinine of 1.5 indicating that her creatinine is roughly double that of baseline. I believe this is acute kidney injury secondary to overwhelming sepsis of abdominal origin. She is now with surgical source control. This improved very rapidly. resolved, however checking BMP daily in light of sepsis that is not completely controlled at this time. (4) Pulmonary embolus: Impression: CTA 07/16 with subsegmental PE bilat lower lobes, no signs of R heart strain (but another reason to get an echo this admit- no signs on echo either). Also seen was LLL infiltrate. followup venous duplex bilateral lower ext showed no DVT but there is Right greater saphenous vein thrombus. Typically greater saphenous vein thrombus is treated as a DVT if it is close to the saphenofemoral junction (within 3 cm) as this poses a higher risk of progression to DVT or PE. Given that she already has a PE, Dr Valles and I agreed that, with stable Hgb, she can start therapeutic lovenox. Pharmacy has assisted with dosing (80mg daily). Started 07/24. I will maintain this until surgical plan is totally set. She may need to return to OR for skin closure, but cannot do so until we know that there is not active intraabdominal process. (5) Bacteremia due to Streptococcus pneumoniae: Impression: Previous admission from 07/16/2025 to 07/18/2025. Blood cultures were drawn this admission. Patient had a pneumonia, community-acquired. She finished a 3-day course of azithromycin and was discharged home on Augmentin. Her blood cultures subsequently were positive for strep pneumo. She was called by the emergency department but unfortunately missed the calls because she was sleeping due to feeling so poorly. The Zosyn prescribed for her intra-abdominal infection should cover her strep pneumo bacteremia. Duration of treatment is dependent upon her overall clincal picture. Echo done no valvular disease. (6) Community acquired pneumonia: Impression: CTA of the chest on July 16 does show a left lower lobe infiltrate. She was prescribed Augmentin upon discharge from the hospital. I am continuing Zosyn which should be adequate coverage for community-acquired pneumonia. She has received azithromycin x 3 days at the time of her previous hospitalization. She does not have any abnormal breath sounds on lung auscultation. She is breathing room air and doing well. (7) COVID: Impression: positive for COVID on 16 July. symptoms started on 07/12. ota states that she may be out of isolation on 07/27. She does not seem to be symptomatic with her COVID at this time. . (8) Diabetes: Impression: Aim to keep blood sugars less than 180. Her diabetes therapy at home consists of Lantus insulin 15 units every evening. Last hemoglobin A1c several days ago was 6.3% indicating good control. I have placed her on sliding scale insulin and per her blood sugars overnight, I am resuming her home lantus dosing. She came to us on dexamethasone 6 mg daily. This was prescribed at hospital discharge for 5 days. I do not think she has been on steroids long enough to cause adrenal insufficiency. At this point I am going to hold further steroids in favor of good tissue healing. The trend is towards blood sugar control that is much improved. Lantus stopped yesterday and has not needed SSI today. Leaving SSI in place, and will not restart Lantus. Laboratory Tests 07/25/25 07/25/25 07/26/25 17:15 20:41 07:44 POC Whole Bld Glucose 99 96 95 07/26/25 07/26/25 11:18 16:47 POC Whole Bld Glucose 123 117 this patient's diagnosis and treatment plan was discussed this AM with attending physician as a part of multi disciplinary rounding meeting. I have spent 51 minutes in the care of this patient today. This includes time [id number], review and ordering of diagnostic imaging and laboratory studies and consultation with other providers. Monitoring the patient's signs symptoms, evaluation of medication effectiveness and patient's response to treatment.
[2025-07-27 07:56] LABS: HCT - HEMATOCRIT 27.6 % (37.0-47.0); HGB - HEMOGLOBIN 8.9 g/dL (12.0-16.0); MEAN PLATELET VOLUME 9.2 fL (7.9-10.8); PLT - PLATELET COUNT 647.0 10^3/uL (130-450); RED CELL DISTRIBUTION WIDTH 14.1 % (12.0-15.0)
[2025-07-27 08:14] LABS: BUN - BLOOD UREA NITROGEN 8.0 mg/dL (6-20); CARBON DIOXIDE - CO2 35.0 mmol/L (21-32); CREATININE 0.5 mg/dL (0.6-1.3); GFR - MDRD 121.0 (>89)
--- NOTE | 2025-07-27 08:39 | PROCEDURE REPORT ---
Hospitalist Procedure Note Procedure Note Procedure Note: Complicated abdominal wound, POD #6, Aly's procedure for perforated sigmoid diverticulitis with free air and extensive fecal soilage. Facial sutures not thoroughly palpated as there is tissue growth over them. there is no undermining or tunnels present at this time. There is a very small tunnel present at the area where there was previously no growth over fascial sutures. The was packed with black foam. The wound measures 27cm long, 3.5cm at deepest point and 3 cm wide at widest point. I must have mis measured the length previously, but the width and depth remain the same at their widest and deepest, although i would say that overall the depth is less. 81cm2. Black sponge was cut to fit the wound in multiple pieces. The wound edges were prepped with no sting skin prep. care was taken not to have contact of foam with intact skin, and complete coverage of wound bed with foam. sponge was carefully sealed with drape, taking care to avoid stoma wafer and RLQ NERISSA site. Trac pad was applied and vac was set to 125mmHg suction (standard setting). no leaks were detected. Plan to change this wound vac again in about 48 hours, and proceed with replacement or delayed primary closure. CPT 08484
--- NOTE | 2025-07-27 12:03 | PROVIDER PROGRESS NOTE ---
Progress Note Progress Note Progress Note: Subjective General Admit Date: 07/21/25 Other Other Information/Narrative: Pain controlled. Tolerating soft diet with productive ostomy. Wound vac changed this morning (by fernando) - wound base clean. Out of bed to the chair on rounds. WBC down to 18 today. Exam Exam Vital Signs: Temp Pulse Resp BP Pulse Ox O2 Flow Rate 36.7 C 75 20 157/72 H 93 1 07/27/25 08:14 07/27/25 08:14 07/27/25 08:14 07/27/25 08:14 07/27/25 08:14 07/24/25 08:55 Gen: NAD, alert and oriented CV: RRR Pulm: non labored, on RA Abd: soft, ND, fascia closed, wound vac in subcu with good seal, minimal output. Ostomy pink with edema and gas and stool in bag. Ext: trace B LE edema Laboratory Results - last 24 hr 07/26/25 07/26/25 07/27/25 16:47 20:59 07:33 WBC RBC Hgb Hct MCV MCH MCHC RDW Plt Count MPV Sodium Potassium Chloride Carbon Dioxide Anion Gap BUN Creatinine Estimated GFR (MDRD) Glucose POC Whole Bld Glucose 117 168 127 Calcium 07/27/25 07/27/25 07:43 11:36 WBC 18.6 H RBC 3.05 L Hgb 8.9 L Hct 27.6 L MCV 90.5 MCH 29.2 MCHC 32.2 RDW 14.1 Plt Count 647 H MPV 9.2 Sodium 139 Potassium 3.2 L Chloride 101 Carbon Dioxide 35 H Anion Gap 3.0 L BUN 8 Creatinine 0.5 L Estimated GFR (MDRD) 121 Glucose 134 H POC Whole Bld Glucose 184 Calcium 7.9 L Intraoperative abdominal cultures - bacteroides and e coli Blood cx - GNR in 1/2 bottles Impression/Plan Problem List (1) Sepsis: (2) Perforation of sigmoid colon due to diverticulitis: (3) RICCARDO (acute kidney injury): (4) Pulmonary embolus: (5) Bacteremia due to Streptococcus pneumoniae: (6) Community acquired pneumonia: (7) COVID: (8) Bacteremia Plan 74 y/o F with: 1. perforated diverticulitis with purulent peritonitis - patient presented with free air on CT - POD#6, emergently taken to OR on 07/21, underwent exploratory laparotomy, lysis of adhesions, sigmoid colectomy, and end colostomy, partial omentectomy for ischemic omentum, abdominal washout, and pelvic drain placement - extubated on 07/23 - cultures taken in OR, abd cultures grew lindsey sensitive e coli and strep viridans. Blood cx with gram negative bacilli in 1/2 at two days (no updates this AM). Additional culture results and pathology pending. Patient on zosyn for intraabdominal infection (appropriate coverage for identified organisms). - leukocytosis persistent, though decreased today with multiple factors contributing including recent steroid use (no current steroids), stress response, intraabdominal infection (source control at surgery) and bacteremia. VSS and afebrile for last 24 hours. Trend WBC. Inquire with micro re: blood cx. Plan at least 7d IV zosyn, longer pending final culture results. - ostomy pink with edema, stool in bag. - fascia closed, subcu with wound vac in place, excellent seal, minimal output, change MWF. Plan for delayed primary closure of subcu when leukocytosis resolved. - Patient is high risk for complications, including dehiscence with multiple risk factors including recent severe illness, recent steroid use (on 6m dexamethasone at time of admission) diabetes, obesity 2. ABLA - patient asymptomatic - therapeutic lovenox started 07/24 for recent h/o B subsegmental PE, DVT. This does increase the patient's risk of post op bleeding. - Hgb fluctuating with narrow range (8.8-10.6). No signs of active bleeding 3. malnutrition - tolerating low residue today. Nutrition following. Protein supplements encouraged. - ok to adat to regular, encourage patient to back off if feeling full/nauseated. 4. recent admission (discharged 07/18) for covid, acute hypoxic respiratory failure, s pneumo bacteremia, B subsegmental pulmonary emboli, and diabetes, h/o COPD - as per medical team - tucker removed, 07/24 - Encourage IS, encourage increased activity. PT recommending SNF on discharge. The patient is slowly improving, her status is guarded. Surgery will continue to follow closely. Sahara Carmen DO, FACS General Surgeon, [facility]
--- NOTE | 2025-07-27 14:08 | PROVIDER PROGRESS NOTE ---
Subjective Prog Note Date Prog Note Date: 07/27/25 Subjective Pt reports feeling: No change Current Medications Current Medications Current Medications: Current Medications Generic Name Dose Route Start Last Admin Trade Name Freq PRN Reason Stop Dose Admin Acetaminophen 650 mg 07/24/25 13:00 07/27/25 08:26 Acetaminophen 325 Mg Tablet PO 650 mg Q4HR TAJ Administration Albuterol 2.5 mg 07/21/25 22:50 Albuterol Neb 2.5 Mg/3 Ml INH Q4HR PRN Wheezing Enoxaparin Sodium 80 mg 07/25/25 09:00 07/27/25 08:26 Enoxaparin 80 Mg/0.8 Ml Syringe SUBQ 80 mg DAILY TAJ Administration Gabapentin 100 mg 07/24/25 14:00 07/27/25 05:22 Gabapentin 100 Mg Capsule PO 100 mg TID TAJ Administration Hydromorphone HCl 0.5 mg 07/23/25 13:01 07/27/25 08:25 Hydromorphone 0.5 Mg/0.5 Ml Syringe IVP 0.5 mg Q2H PRN Administration Breakthrough Pain Hydroxyzine Pamoate 25 mg 07/23/25 20:22 07/25/25 21:53 Hydroxyzine Pamoate 25 Mg Capsule PO 25 mg QPM PRN Administration Insomnia Piperacillin Sod/Tazobactam 100 mls @ 200 mls/hr 07/21/25 23:00 07/27/25 11:09 Sod 3.375 gm/ Sodium Chloride IV 200 mls/hr Q6H TAJ Administration Insulin Human Lispro 1 - 5 unit 07/24/25 08:00 07/27/25 12:31 Insulin Lispro 300 Unit/3 Ml Pen SUBQ 2 unit 0800,1200,1700,2100 TAJ Administration Protocol Lisinopril 20 mg 07/25/25 09:00 07/27/25 08:26 Lisinopril 20 Mg Tablet PO 20 mg DAILY TAJ Administration Lorazepam 2 mg 07/23/25 22:00 07/26/25 08:23 Lorazepam 1 Mg Tablet PO 2 mg Q4H PRN Administration Anxiety Multivitamins/Minerals 1 tab 07/26/25 12:00 07/27/25 08:26 Multivitamin W/Minerals Tablet PO 1 tab DAILYWM TAJ Administration Ondansetron HCl 4 mg 07/21/25 22:50 07/25/25 08:34 Ondansetron 4 Mg/2 Ml Vial IVP 4 mg Q6HR PRN Administration Nausea / Vomiting Oxycodone HCl 5 mg 07/24/25 09:29 07/27/25 00:17 Oxycodone 5 Mg Tablet PO 5 mg Q4HR PRN Administration Severe Pain (Level 7-10) Pantoprazole Sodium 40 mg 07/22/25 07:00 07/27/25 06:11 Pantoprazole 40 Mg Vial IVP 40 mg QDAC TAJ Administration Polyethylene Glycol 17 gm 07/26/25 09:00 07/27/25 08:26 Polyethylene Glycol 3350 17 Gm Packet PO 17 gm DAILY TAJ Administration Sodium Chloride 10 ml 07/22/25 01:00 07/27/25 08:26 Sodium Chloride Flush 0.9% 10 Ml Syringe IVP 10 ml 0100,0900,1700 TAJ Administration Sodium Chloride 10 ml 07/21/25 22:50 07/27/25 06:11 Sodium Chloride Flush 0.9% 10 Ml Syringe IVP 10 ml PRN PRN Administration NEEDED PER PROVIDER ORDERS Venlafaxine HCl 75 mg 07/24/25 09:00 07/27/25 08:26 Venlafaxine Er 75 Mg Capsule PO 75 mg DAILY TAJ Administration Zinc Oxide 113 gm 07/25/25 12:25 Cod Liver Oil/Zinc Oxide 113 Gm Tube TOP PRN PRN Skin Care Objective Vital Signs/Intake & Output Reviewed Vital Signs: Yes Vital Signs: Vital Signs x48h Temp Pulse Resp BP Pulse Ox 07/27/25 13:00 36.7 C 83 18 138/81 H 94 07/27/25 08:14 36.7 C 75 20 157/72 H 93 Intake & Output: Intake & Output 07/24/25 07/25/25 07/26/25 07/27/25 23:59 23:59 23:59 23:59 Intake Total 1780 / 1780 1660 / 1660 910 / 910 577 / 577 Output Total 990 / 990 850 / 850 575 / 575 1250 / 1250 Balance 790 / 790 810 / 810 335 / 335 -673 / -673 Weight (kg) 91 kg 92.5 kg 93.5 kg 94 kg Objective General Appearance: positive No acute distress and Alert Eyes Bilateral: positive Normal inspection ENT: positive ENT inspection nml Neck: positive Nml inspection and Other (left IJ central line intact. ) Respiratory: positive Chest non-tender and Breath sounds nml Cardiovascular: positive Regular rate & rhythm Abdomen: positive Other (Ostomy pink, stool in bag) Back: positive Nml inspection Skin: positive Color nml Extremities: positive Non-tender and No pedal edema Neurologic/Psychiatric: positive Oriented x3 Lab Results 07/27/25 07:43 07/27/25 07:43 Other Labs: Lab Results x24hrs 07/27/25 07/27/25 07/27/25 Range/Units 11:36 07:43 07:33 WBC 18.6 H (4.8-10.8) x10^3/uL RBC 3.05 L (4.20-5.40) 10^6/uL Hgb 8.9 L (12.0-16.0) g/dL Hct 27.6 L (37.0-47.0) % MCV 90.5 (81.0-99.0) fL MCH 29.2 (27.0-31.0) pg MCHC 32.2 (32.0-36.0) g/dL RDW 14.1 (12.0-15.0) % Plt Count 647 H (130-450) 10^3/uL MPV 9.2 (7.9-10.8) fL Sodium 139 (135-145) mmol/L Potassium 3.2 L (3.5-4.5) mmol/L Chloride 101 (101-111) mmol/L Carbon Dioxide 35 H (21-32) mmol/L Anion Gap 3.0 L (6-13) BUN 8 (6-20) mg/dL Creatinine 0.5 L (0.6-1.3) mg/dL Estimated GFR (MDRD) 121 (>89) Glucose 134 H (74-104) mg/dL POC Whole Bld Glucose 184 127 (70-100) mg/dL Calcium 7.9 L (8.5-10.3) mg/dL 07/26/25 07/26/25 Range/Units 20:59 16:47 WBC (4.8-10.8) x10^3/uL RBC (4.20-5.40) 10^6/uL Hgb (12.0-16.0) g/dL Hct (37.0-47.0) % MCV (81.0-99.0) fL MCH (27.0-31.0) pg MCHC (32.0-36.0) g/dL RDW (12.0-15.0) % Plt Count (130-450) 10^3/uL MPV (7.9-10.8) fL Sodium (135-145) mmol/L Potassium (3.5-4.5) mmol/L Chloride (101-111) mmol/L Carbon Dioxide (21-32) mmol/L Anion Gap (6-13) BUN (6-20) mg/dL Creatinine (0.6-1.3) mg/dL Estimated GFR (MDRD) (>89) Glucose (74-104) mg/dL POC Whole Bld Glucose 168 117 (70-100) mg/dL Calcium (8.5-10.3) mg/dL Sepsis Event Note (H) Evaluation Current Stage of Sepsis: Sepsis Possible source of Sepsis: positive GI tract/intra-abdominal Sepsis Criteria Sepsis Criteria: WBC count greater than 10% bands and WBC count greater than 12,000 or less than 4000 Assessment/Plan Problem List (1) Sepsis: Impression: Met sepsis criteria with tachycardia, tachypnea, profound leukocytosis. Had elevated lactate This is secondary to perforation of hollow viscus, manage as below Continue Zosyn, today is day 7 Multiple positive cultures. She had blood cultures 07/16 showing strep pneumoniae. Blood culture on 07/21 with gram-negative bacilli in anaerobic bottle. ID in process. Wound culture from 07/21 shows E. coli and strep viridans WBC is improving. Highest WBC was 44.7, it is 18.6 today (2) Perforation of sigmoid colon due to diverticulitis: Impression: POD #6 exploratory laparotomy with Armando's procedure and washout of abdomen. Colostomy in place. perforation was subacute. much inflammatory tissue within the abdomen. thoroughly washed out. Her abdominal fascia is closed Stoma viable with output. Tolerated soft, low fiber diet. Advance to regular diet today She is maintained on Zosyn. She has reached 4 days post surgical source control, WBC now trending down (3) RICCARDO (acute kidney injury): Impression: Creatinine on presentation 1.5, her RICCARDO has resolved now after management of sepsis. Continue daily BMP (4) Pulmonary embolus: Impression: CTA 07/16 with subsegmental PE bilat lower lobes, no signs of R heart strain (but another reason to get an echo this admit- no signs on echo either). Also seen was LLL infiltrate. followup venous duplex bilateral lower ext showed no DVT but there is Right greater saphenous vein thrombus. Typically greater saphenous vein thrombus is treated as a DVT if it is close to the saphenofemoral junction (within 3 cm) as this poses a higher risk of progression to DVT or PE. Given her postoperative state and possibility of further procedures, her anticoagulant has been changed to therapeutic dose Lovenox (5) Bacteremia due to Streptococcus pneumoniae: Impression: She has blood cultures from previous admission that were positive for strep pneumo and a. This is likely pulmonary source. She is on Zosyn, which should cover this. She has completed 7 days. She has another blood culture drawn since then that shows gram-negative bacilli, no ID yet. She has drastic improvements in her WBC and is overall feeling better. Tomorrow, I will transition her from Zosyn to Augmentin. She will stay on Augmentin for a week (6) Community acquired pneumonia: Impression: Community-acquired pneumonia noted on previous admit. She has finished a course of azithromycin as well as 7 days of Zosyn (7) COVID: Impression: Infection control nurse says that she may be out of isolation on 07/27. No COVID-specific symptoms at this time (8) Diabetes: Impression: Last A1c 6.3 Her home dose Lantus has been held Good blood sugar control with SSI, will continue this
[2025-07-28 08:26] LABS: HCT - HEMATOCRIT 30.1 % (37.0-47.0); HGB - HEMOGLOBIN 9.5 g/dL (12.0-16.0); MEAN PLATELET VOLUME 9.1 fL (7.9-10.8); PLT - PLATELET COUNT 744.0 10^3/uL (130-450); RED CELL DISTRIBUTION WIDTH 14.6 % (12.0-15.0)
[2025-07-28 09:07] LABS: BUN - BLOOD UREA NITROGEN 6.0 mg/dL (6-20); CARBON DIOXIDE - CO2 35.0 mmol/L (21-32); CREATININE 0.5 mg/dL (0.6-1.3); GFR - MDRD 121.0 (>89)
[2025-07-28] MEDS: POTASSIUM CHLORIDE 20 MEQ TABLET PO ONE (09:43)
--- NOTE | 2025-07-28 11:21 | PROVIDER PROGRESS NOTE ---
Subjective Prog Note Date Prog Note Date: 07/28/25 Subjective Pt reports feeling: Improved Current Medications Current Medications Current Medications: Current Medications Generic Name Dose Route Start Last Admin Trade Name Freq PRN Reason Stop Dose Admin Acetaminophen 650 mg 07/24/25 13:00 07/28/25 08:23 Acetaminophen 325 Mg Tablet PO 650 mg Q4HR TAJ Administration Albuterol 2.5 mg 07/21/25 22:50 Albuterol Neb 2.5 Mg/3 Ml INH Q4HR PRN Wheezing Enoxaparin Sodium 80 mg 07/25/25 09:00 07/28/25 08:23 Enoxaparin 80 Mg/0.8 Ml Syringe SUBQ 80 mg DAILY TAJ Administration Gabapentin 100 mg 07/24/25 14:00 07/28/25 05:27 Gabapentin 100 Mg Capsule PO 100 mg TID TAJ Administration Hydromorphone HCl 0.5 mg 07/23/25 13:01 07/27/25 08:25 Hydromorphone 0.5 Mg/0.5 Ml Syringe IVP 0.5 mg Q2H PRN Administration Breakthrough Pain Hydroxyzine Pamoate 25 mg 07/23/25 20:22 07/27/25 22:22 Hydroxyzine Pamoate 25 Mg Capsule PO 25 mg QPM PRN Administration Insomnia Piperacillin Sod/Tazobactam 100 mls @ 200 mls/hr 07/21/25 23:00 07/28/25 06:26 Sod 3.375 gm/ Sodium Chloride IV Infused Q6H TAJ Infusion Insulin Human Lispro 1 - 5 unit 07/24/25 08:00 07/28/25 08:23 Insulin Lispro 300 Unit/3 Ml Pen SUBQ 2 unit 0800,1200,1700,2100 TAJ Administration Protocol Lisinopril 20 mg 07/25/25 09:00 07/28/25 08:23 Lisinopril 20 Mg Tablet PO 20 mg DAILY TAJ Administration Lorazepam 2 mg 07/23/25 22:00 07/26/25 08:23 Lorazepam 1 Mg Tablet PO 2 mg Q4H PRN Administration Anxiety Multivitamins/Minerals 1 tab 07/26/25 12:00 07/28/25 08:23 Multivitamin W/Minerals Tablet PO 1 tab DAILYWM TAJ Administration Ondansetron HCl 4 mg 07/21/25 22:50 07/25/25 08:34 Ondansetron 4 Mg/2 Ml Vial IVP 4 mg Q6HR PRN Administration Nausea / Vomiting Oxycodone HCl 5 mg 07/24/25 09:29 07/28/25 00:25 Oxycodone 5 Mg Tablet PO 5 mg Q4HR PRN Administration Severe Pain (Level 7-10) Pantoprazole Sodium 40 mg 07/29/25 07:00 Pantoprazole 40 Mg Tablet PO QDAC TAJ Polyethylene Glycol 17 gm 07/26/25 09:00 07/28/25 08:23 Polyethylene Glycol 3350 17 Gm Packet PO 17 gm DAILY TAJ Administration Sodium Chloride 10 ml 07/22/25 01:00 07/28/25 08:24 Sodium Chloride Flush 0.9% 10 Ml Syringe IVP 10 ml 0100,0900,1700 TAJ Administration Sodium Chloride 10 ml 07/21/25 22:50 07/28/25 05:29 Sodium Chloride Flush 0.9% 10 Ml Syringe IVP 10 ml PRN PRN Administration NEEDED PER PROVIDER ORDERS Venlafaxine HCl 75 mg 07/24/25 09:00 07/28/25 08:24 Venlafaxine Er 75 Mg Capsule PO 75 mg DAILY TAJ Administration Zinc Oxide 113 gm 07/25/25 12:25 Cod Liver Oil/Zinc Oxide 113 Gm Tube TOP PRN PRN Skin Care Objective Vital Signs/Intake & Output Reviewed Vital Signs: Yes Vital Signs: Vital Signs x48h Temp Pulse Pulse Resp BP BP Pulse Ox 07/28/25 07:43 36.7 C 80 18 158/85 H 94 07/28/25 03:30 36.8 C 82 19 148/70 H 92 Intake & Output: Intake & Output 07/25/25 07/26/25 07/27/25 07/28/25 23:59 23:59 23:59 23:59 Intake Total 1660 / 1660 910 / 910 1217 / 1217 660 / 660 Output Total 850 / 850 575 / 575 1510 / 1510 1752 / 1752 Balance 810 / 810 335 / 335 -293 / -293 -1092 / -1092 Weight (kg) 92.5 kg 93.5 kg 94 kg 94 kg Objective General Appearance: positive No acute distress and Alert Eyes Bilateral: positive Normal inspection ENT: positive ENT inspection nml Neck: positive Nml inspection and Other (left IJ central line intact. ) Respiratory: positive Chest non-tender and Breath sounds nml Cardiovascular: positive Regular rate & rhythm Abdomen: positive Other (Ostomy pink, stool in bag) Back: positive Nml inspection Skin: positive Color nml Extremities: positive Non-tender and No pedal edema Neurologic/Psychiatric: positive Oriented x3 Lab Results 07/28/25 08:14 07/28/25 08:14 Other Labs: Lab Results x24hrs 07/28/25 07/28/25 07/27/25 Range/Units 08:14 07:39 20:45 WBC 16.8 H (4.8-10.8) x10^3/uL RBC 3.27 L (4.20-5.40) 10^6/uL Hgb 9.5 L (12.0-16.0) g/dL Hct 30.1 L (37.0-47.0) % MCV 92.0 (81.0-99.0) fL MCH 29.1 (27.0-31.0) pg MCHC 31.6 L (32.0-36.0) g/dL RDW 14.6 (12.0-15.0) % Plt Count 744 H (130-450) 10^3/uL MPV 9.1 (7.9-10.8) fL Sodium 140 (135-145) mmol/L Potassium 3.0 L (3.5-4.5) mmol/L Chloride 101 (101-111) mmol/L Carbon Dioxide 35 H (21-32) mmol/L Anion Gap 4.0 L (6-13) BUN 6 (6-20) mg/dL Creatinine 0.5 L (0.6-1.3) mg/dL Estimated GFR (MDRD) 121 (>89) Glucose 163 H (74-104) mg/dL POC Whole Bld Glucose 173 180 (70-100) mg/dL Calcium 8.1 L (8.5-10.3) mg/dL 07/27/25 07/27/25 Range/Units 16:41 11:36 WBC (4.8-10.8) x10^3/uL RBC (4.20-5.40) 10^6/uL Hgb (12.0-16.0) g/dL Hct (37.0-47.0) % MCV (81.0-99.0) fL MCH (27.0-31.0) pg MCHC (32.0-36.0) g/dL RDW (12.0-15.0) % Plt Count (130-450) 10^3/uL MPV (7.9-10.8) fL Sodium (135-145) mmol/L Potassium (3.5-4.5) mmol/L Chloride (101-111) mmol/L Carbon Dioxide (21-32) mmol/L Anion Gap (6-13) BUN (6-20) mg/dL Creatinine (0.6-1.3) mg/dL Estimated GFR (MDRD) (>89) Glucose (74-104) mg/dL POC Whole Bld Glucose 149 184 (70-100) mg/dL Calcium (8.5-10.3) mg/dL Sepsis Event Note (H) Evaluation Current Stage of Sepsis: Sepsis Possible source of Sepsis: positive GI tract/intra-abdominal Sepsis Criteria Sepsis Criteria: WBC count greater than 10% bands and WBC count greater than 12,000 or less than 4000 Assessment/Plan Problem List (1) Sepsis: Impression: Met sepsis criteria with tachycardia, tachypnea, profound leukocytosis. Had elevated lactate This is secondary to perforation of hollow viscus, manage as below Continue Zosyn, today is day 7 Multiple positive cultures. She had blood cultures 07/16 showing strep pneumoniae. Blood culture on 07/21 with gram-negative bacilli in anaerobic bottle. ID in process. Wound culture from 07/21 shows E. coli and strep viridans WBC is improving. Highest WBC was 44.7 07/28: She has completed 7 days of IV Zosyn, transitioning her to Augmentin for 1 week. At this point she is medically clear for discharge, but there will likely be some delay given her wound VAC. NERISSA drain removed. (2) Perforation of sigmoid colon due to diverticulitis: Impression: POD #6 exploratory laparotomy with Armando's procedure and washout of abdomen. Colostomy in place. perforation was subacute. much inflammatory tissue within the abdomen. thoroughly washed out. Her abdominal fascia is closed Stoma viable with output. Tolerated soft, low fiber diet. Advance to regular diet today She is maintained on Zosyn. She has reached 4 days post surgical source control, WBC now trending down 07/28: NERISSA drain removed. Tolerating diet (3) RICCARDO (acute kidney injury): Impression: Creatinine on presentation 1.5, her RICCARDO has resolved now after management of sepsis. Continue daily BMP (4) Pulmonary embolus: Impression: CTA 07/16 with subsegmental PE bilat lower lobes, no signs of R heart strain (but another reason to get an echo this admit- no signs on echo either). Also seen was LLL infiltrate. followup venous duplex bilateral lower ext showed no DVT but there is Right greater saphenous vein thrombus. Typically greater saphenous vein thrombus is treated as a DVT if it is close to the saphenofemoral junction (within 3 cm) as this poses a higher risk of progression to DVT or PE. Given her postoperative state and possibility of further procedures, her anticoagulant has been changed to therapeutic dose Lovenox (5) Bacteremia due to Streptococcus pneumoniae: Impression: She has blood cultures from previous admission that were positive for strep pneumo and a. This is likely pulmonary source. She is on Zosyn, which should cover this. She has completed 7 days. She has another blood culture drawn since then that shows gram-negative bacilli, no ID yet. She has drastic improvements in her WBC and is overall feeling better. (6) Community acquired pneumonia: Impression: Community-acquired pneumonia noted on previous admit. She has finished a course of azithromycin as well as 7 days of Zosyn (7) COVID: Impression: Infection control nurse says that she may be out of isolation on 07/27. No COVID-specific symptoms at this time (8) Diabetes: Impression: Last A1c 6.3 Her home dose Lantus has been held Good blood sugar control with SSI, will continue this
[2025-07-28] MEDS: AMOX/CLAV 875 MG/125 MG TABLET PO SCH (12:47)
--- NOTE | 2025-07-28 19:51 | PROVIDER PROGRESS NOTE ---
Subjective General Admit Date: 07/21/25 Procedure Date: 07/21/25 Post Op Days: 8 Procedure Performed: Exploratory laparotomy with end colostomy, Hartmanns Wound Assessment Wound/Incisions: positive Other (Open wound with wound vac in place, ostomy pink and productive) Review of Systems Status of ROS: 10 or more systems reviewed and unremarkable except as noted in history and below Exam Exam Vital Signs: Vital Signs x48h Temp Pulse Resp BP Pulse Ox 07/29/25 11:12 36.7 C 80 18 168/84 H 96 07/29/25 08:10 36.6 C 87 20 158/77 H 94 General: 74-year old female, appears stated age, well developed, well nourished HEENT: Normocephalic, atraumatic, extraocular movement intact, mucous membranes pink and moist, sclera anicteric and not injected Neck: Supple without pain on palpation, mass or bruit Cardiac: Regular rate and rhythm without rub, gallop, or murmur Chest: Clear to auscultation bilaterally Abdomen: Soft, minimal tenderness, wound vac in place, ostomy pink and productive, drain with minimal serosanguinous drainage Genitourinary: Deferred Rectal: Deferred until colonoscopy Extremities: No gross neurovascular problem, no clubbing, cyanosis or edema Gait: Did not evalute as patient in bed and chair Psychiatric: Alert and oriented to person place and time, asks and answers questions appropriately, mood and affect appropriate ABX Reporting Has patient been on IV antibiotics over the past 48 hours?: Yes Impression/Plan Problem List (1) Sepsis: (2) Perforation of sigmoid colon due to diverticulitis: (3) RICCARDO (acute kidney injury): (4) Pulmonary embolus: (5) Bacteremia due to Streptococcus pneumoniae: (6) Community acquired pneumonia: (7) COVID: (8) Diabetes: Plan Will need to change wound vac for transfer. No evidence of wound issue. Drain to be removed in next 24 hours. WBC decreasing nicely - concern for infection decreasing. General diet. Increase activity. jail - consider restoring continuity in 9-12 months.
[2025-07-29] MEDS: PANTOPRAZOLE 40 MG TABLET PO SCH (06:31)
[2025-07-29 07:47] LABS: HCT - HEMATOCRIT 28.6 % (37.0-47.0); HGB - HEMOGLOBIN 9.2 g/dL (12.0-16.0); MEAN PLATELET VOLUME 9.2 fL (7.9-10.8); PLT - PLATELET COUNT 754.0 10^3/uL (130-450); RED CELL DISTRIBUTION WIDTH 14.7 % (12.0-15.0)
[2025-07-29 08:04] LABS: BUN - BLOOD UREA NITROGEN 7.0 mg/dL (6-20); CARBON DIOXIDE - CO2 33.0 mmol/L (21-32); CREATININE 0.5 mg/dL (0.6-1.3); GFR - MDRD 121.0 (>89)
--- NOTE | 2025-07-29 11:14 | PROVIDER PROGRESS NOTE ---
Subjective Prog Note Date Prog Note Date: 07/29/25 Subjective Pt reports feeling: No change Current Medications Current Medications Current Medications: Current Medications Generic Name Dose Route Start Last Admin Trade Name Ad PRN Reason Stop Dose Admin Acetaminophen 650 mg 07/24/25 13:00 07/29/25 08:54 Acetaminophen 325 Mg Tablet PO 650 mg Q4HR TAJ Administration Albuterol 2.5 mg 07/21/25 22:50 Albuterol Neb 2.5 Mg/3 Ml INH Q4HR PRN Wheezing Amoxicillin/Clavulanate Potassium 1 tab 07/28/25 12:00 07/29/25 08:54 Amox/Clav 875 Mg/125 Mg Tablet PO 08/04/25 11:59 1 tab BID TAJ Administration Apixaban 5 mg 07/29/25 21:00 Apixaban 5 Mg Tablet PO BID TAJ Gabapentin 100 mg 07/24/25 14:00 07/29/25 05:55 Gabapentin 100 Mg Capsule PO 100 mg TID TAJ Administration Hydromorphone HCl 0.5 mg 07/23/25 13:01 07/27/25 08:25 Hydromorphone 0.5 Mg/0.5 Ml Syringe IVP 0.5 mg Q2H PRN Administration Breakthrough Pain Hydroxyzine Pamoate 25 mg 07/23/25 20:22 07/28/25 21:43 Hydroxyzine Pamoate 25 Mg Capsule PO 25 mg QPM PRN Administration Insomnia Insulin Human Lispro 1 - 5 unit 07/24/25 08:00 07/29/25 08:52 Insulin Lispro 300 Unit/3 Ml Pen SUBQ 1 unit 0800,1200,1700,2100 TAJ Administration Protocol Lisinopril 20 mg 07/25/25 09:00 07/29/25 08:54 Lisinopril 20 Mg Tablet PO 20 mg DAILY TAJ Administration Lorazepam 2 mg 07/23/25 22:00 07/26/25 08:23 Lorazepam 1 Mg Tablet PO 2 mg Q4H PRN Administration Anxiety Multivitamins/Minerals 1 tab 07/26/25 12:00 07/29/25 08:54 Multivitamin W/Minerals Tablet PO 1 tab DAILYWM TAJ Administration Ondansetron HCl 4 mg 07/21/25 22:50 07/25/25 08:34 Ondansetron 4 Mg/2 Ml Vial IVP 4 mg Q6HR PRN Administration Nausea / Vomiting Oxycodone HCl 5 mg 07/24/25 09:29 07/28/25 22:06 Oxycodone 5 Mg Tablet PO 5 mg Q4HR PRN Administration Severe Pain (Level 7-10) Pantoprazole Sodium 40 mg 07/29/25 07:00 07/29/25 06:31 Pantoprazole 40 Mg Tablet PO 40 mg QDAC TAJ Administration Polyethylene Glycol 17 gm 07/26/25 09:00 07/29/25 08:50 Polyethylene Glycol 3350 17 Gm Packet PO 17 gm DAILY TAJ Administration Sodium Chloride 10 ml 07/22/25 01:00 07/29/25 08:55 Sodium Chloride Flush 0.9% 10 Ml Syringe IVP 10 ml 0100,0900,1700 TAJ Administration Sodium Chloride 10 ml 07/21/25 22:50 07/29/25 00:58 Sodium Chloride Flush 0.9% 10 Ml Syringe IVP 10 ml PRN PRN Administration NEEDED PER PROVIDER ORDERS Venlafaxine HCl 75 mg 07/24/25 09:00 07/29/25 08:54 Venlafaxine Er 75 Mg Capsule PO 75 mg DAILY TAJ Administration Zinc Oxide 113 gm 07/25/25 12:25 Cod Liver Oil/Zinc Oxide 113 Gm Tube TOP PRN PRN Skin Care Objective Vital Signs/Intake & Output Reviewed Vital Signs: Yes Vital Signs: Vital Signs x48h Temp Pulse Resp BP Pulse Ox 07/29/25 08:10 36.6 C 87 20 158/77 H 94 07/29/25 04:08 36.6 C 84 16 169/86 H 94 Intake & Output: Intake & Output 07/26/25 07/27/25 07/28/25 07/29/25 23:59 23:59 23:59 23:59 Intake Total 910 / 910 1217 / 1217 1630 / 1630 360 / 360 Output Total 575 / 575 1510 / 1510 3552 / 3552 2650 / 2650 Balance 335 / 335 -293 / -293 -1922 / -1922 -2290 / -2290 Weight (kg) 93.5 kg 94 kg 94 kg 94 kg Objective General Appearance: positive No acute distress and Alert Eyes Bilateral: positive Normal inspection ENT: positive ENT inspection nml Neck: positive Nml inspection and Other (left IJ central line intact. ) Respiratory: positive Chest non-tender and Breath sounds nml Cardiovascular: positive Regular rate & rhythm Abdomen: positive Other (Ostomy pink, stool in bag) Back: positive Nml inspection Skin: positive Color nml Extremities: positive Non-tender and No pedal edema Neurologic/Psychiatric: positive Oriented x3 Lab Results 07/29/25 05:00 07/29/25 05:00 Other Labs: Lab Results x24hrs 07/29/25 07/29/25 07/28/25 Range/Units 07:59 05:00 21:53 WBC 15.0 H (4.8-10.8) x10^3/uL RBC 3.10 L (4.20-5.40) 10^6/uL Hgb 9.2 L (12.0-16.0) g/dL Hct 28.6 L (37.0-47.0) % MCV 92.3 (81.0-99.0) fL MCH 29.7 (27.0-31.0) pg MCHC 32.2 (32.0-36.0) g/dL RDW 14.7 (12.0-15.0) % Plt Count 754 H (130-450) 10^3/uL MPV 9.2 (7.9-10.8) fL Sodium 141 (135-145) mmol/L Potassium 3.2 L (3.5-4.5) mmol/L Chloride 103 (101-111) mmol/L Carbon Dioxide 33 H (21-32) mmol/L Anion Gap 5.0 L (6-13) BUN 7 (6-20) mg/dL Creatinine 0.5 L (0.6-1.3) mg/dL Estimated GFR (MDRD) 121 (>89) Glucose 146 H (74-104) mg/dL POC Whole Bld Glucose 168 202 (70-100) mg/dL Calcium 8.0 L (8.5-10.3) mg/dL Magnesium 1.6 L (1.7-2.3) mg/dL 07/28/25 07/28/25 Range/Units 16:28 11:58 WBC (4.8-10.8) x10^3/uL RBC (4.20-5.40) 10^6/uL Hgb (12.0-16.0) g/dL Hct (37.0-47.0) % MCV (81.0-99.0) fL MCH (27.0-31.0) pg MCHC (32.0-36.0) g/dL RDW (12.0-15.0) % Plt Count (130-450) 10^3/uL MPV (7.9-10.8) fL Sodium (135-145) mmol/L Potassium (3.5-4.5) mmol/L Chloride (101-111) mmol/L Carbon Dioxide (21-32) mmol/L Anion Gap (6-13) BUN (6-20) mg/dL Creatinine (0.6-1.3) mg/dL Estimated GFR (MDRD) (>89) Glucose (74-104) mg/dL POC Whole Bld Glucose 171 216 (70-100) mg/dL Calcium (8.5-10.3) mg/dL Magnesium (1.7-2.3) mg/dL Sepsis Event Note (H) Evaluation Current Stage of Sepsis: Sepsis Possible source of Sepsis: positive GI tract/intra-abdominal Sepsis Criteria Sepsis Criteria: WBC count greater than 10% bands and WBC count greater than 12,000 or less than 4000 Assessment/Plan Problem List (1) Sepsis: Impression: Met sepsis criteria with tachycardia, tachypnea, profound leukocytosis. Had elevated lactate This is secondary to perforation of hollow viscus, manage as below Continue Zosyn, today is day 7 Multiple positive cultures. She had blood cultures 07/16 showing strep pneumoniae. Blood culture on 07/21 with gram-negative bacilli in anaerobic bottle. ID in process. Wound culture from 07/21 shows E. coli and strep viridans WBC is improving. Highest WBC was 44.7 07/28: She has completed 7 days of IV Zosyn, transitioning her to Augmentin for 1 week. At this point she is medically clear for discharge, but there will likely be some delay given her wound VAC. NERISSA drain removed. 07/29: WBC 15. Continue Augmentin. Reviewing case with general surgery regarding continued need for wound VAC and changing the wound VAC dressing today (2) Perforation of sigmoid colon due to diverticulitis: Impression: POD #6 exploratory laparotomy with Armando's procedure and washout of abdomen. Colostomy in place. perforation was subacute. much inflammatory tissue within the abdomen. thoroughly washed out. Her abdominal fascia is closed Stoma viable with output. Tolerated soft, low fiber diet. Advance to regular diet today She is maintained on Zosyn. She has reached 4 days post surgical source control, WBC now trending down 07/28: NERISSA drain removed. Tolerating diet (3) RICCARDO (acute kidney injury): Impression: Creatinine on presentation 1.5, her RICCARDO has resolved now after management of sepsis. Continue daily BMP (4) Pulmonary embolus: Impression: CTA 07/16 with subsegmental PE bilat lower lobes, no signs of R heart strain (but another reason to get an echo this admit- no signs on echo either). Also seen was LLL infiltrate. followup venous duplex bilateral lower ext showed no DVT but there is Right greater saphenous vein thrombus. Typically greater saphenous vein thrombus is treated as a DVT if it is close to the saphenofemoral junction (within 3 cm) as this poses a higher risk of progression to DVT or PE. Given her postoperative state and possibility of further procedures, her anticoagulant has been changed to therapeutic dose Lovenox 07/29: As patient is now cleared for discharge, transitioning back to Eliquis dosed for PE (5) Bacteremia due to Streptococcus pneumoniae: Impression: She has blood cultures from previous admission that were positive for strep pneumo and a. This is likely pulmonary source. She is on Zosyn, which should cover this. She has completed 7 days. She has another blood culture drawn since then that shows gram-negative bacilli, no ID yet. She has drastic improvements in her WBC and is overall feeling better. (6) Community acquired pneumonia: Impression: Community-acquired pneumonia noted on previous admit. She has finished a course of azithromycin as well as 7 days of Zosyn (7) COVID: Impression: Infection control nurse says that she may be out of isolation on 07/27. No COVID-specific symptoms at this time (8) Diabetes: Impression: Last A1c 6.3 Her home dose Lantus has been held Good blood sugar control with SSI, will continue this
[2025-07-29 11:37] VITALS: BP 168/84; TEMP 98.1; O2SAT 96
--- NOTE | 2025-07-29 14:00 | Discharge Summary ---
Discharge Summary Admit Date: 07/21/25 Discharge Date: 07/29/25 Discharging Provider: Ankur Somers Primary Care Provider: Austin Ludn Code Status: Attempt Resuscitation DIAGNOSES Admission Diagnoses: Septic shock Perforated diverticulum of large intestine RICCARDO Pulmonary embolism Diabetes to Bacteremia due to strep Pneumonae CAP COVID Discharge Diagnoses with Status of Each Condition: Septic shockresolved Perforated diverticulum of large intestinepostop AKIresolved Pulmonary embolismanticoagulated on Eliquis Bacteremia due to Streptococcus pneumonaecompleted course of IV antibiotic, discharging on Augmentin Community-acquired pneumoniaresolved COVIDout of isolation Diabetes/chronic HPI History of Present Illness: 74-year-old female with recurrent breast cancer status post bilateral mastectomy now in remission history of COPD, type 2 diabetes, laparotomy after trauma and nephrectomy presented to the emergency department this evening feeling poorly. She had been admitted to our institution for several days on July 16 for community-acquired pneumonia with COVID infection discharged to home with subsequent blood culture positivity for strep pneumo. Workup in the emergency department showed large amount of free air under bilateral diaphragms therefore general surgery was consulted emergently after CT showing hollow viscus perforation she was taken to the operating room for laparotomy. We are asked to assume care of this critically ill patient in the ICU. She is unable to give a history. HOSPITAL COURSE Hospital Course: Patient was admitted into the hospital and underwent ex lap with sigmoid colon resection and colostomy on 07/21. She was maintained in the ICU for some time after the procedure. Extubated on 07/23. Blood cultures on presentation showed gram-negative bacilli, no positive ID yet. Patient completed a 7 days course of Zosyn. Her leukocytosis is slowly resolving, with last WBC 15. She is being discharged to SNF as she will need aggressive assistance with wound care/wound VAC. She is to follow-up with PCP as well as with general surgery ALLERGIES Allergies Allergy/AdvReac Type Severity Reaction Status Date / Time No Known Drug Allergies Allergy Verified 07/21/25 17:00 MEDICATIONS Ambulatory Orders Medication Instructions Recorded Confirmed alprazolam 0.5 mg tablet 0.5 mg PO BID 02/21/2507/22 blood-glucose meter #1 ea 02/21/25 lancets 32 gauge and blood glucose #300 ea 02/21/25 strips kit ([employer] Blood Glucose System Refill) venlafaxine 75 mg capsule,extended 75 mg PO DAILY 0406/1007/22/25 release 24 hr insulin glargine 100 unit/mL (3 15 unit subcut QAM 07/22/25 mL) subcutaneous pen (Lantus Solostar U-100 Insulin) apixaban 5 mg tablet (Eliquis) 5 mg PO BID 07/22/25 zolpidem 10 mg tablet 10 mg PO QPM 07/22/25 Augmentin 875 mg-potassium 1 tab PO BID 6 days #12 tab s 07/29/25 clavulanate 125 mg tablet gabapentin 100 mg capsule 100 mg PO TID 30 days #90 ca ps 07/29/25 pantoprazole 40 mg tablet,delayed 40 mg PO QDAC 30 day s #30 tabs 07/29/25 release PHYSICAL EXAM AT DISCHARGE Vital Signs: Vital Signs x48h Temp Pulse Resp BP Pulse Ox 07/29/25 11:12 36.7 C 80 18 168/84 H 96 General Appearance: positive No acute distress and Alert Eyes Bilateral: positive Normal inspection ENT: positive ENT inspection nml Neck: positive Nml inspection Respiratory: positive Chest non-tender and No respiratory distress Cardiovascular: positive Regular rate & rhythm and No murmur Peripheral Pulses: positive 2+ Abdomen: positive Non-tender and Other (Dressing in place) Rectal: positive Non-tender Back: positive Nml inspection Skin: positive Color nml Extremities: positive Non-tender Neurologic/Psychiatric: positive Oriented x3 LABS 07/29/25 05:00 07/29/25 05:00 SEPSIS Current Stage of Sepsis: Resolved Possible source of Sepsis: GI tract/intra-abdominal Sepsis Criteria: WBC count greater than 10% bands and WBC count greater than 12,000 or less than 4000 FOLLOW UP Follow Up: With PCP, general surgery TIME SPENT Time Spent in Discharge (Minutes): 38 Discharge Plan Discharge Patient Disposition: DC/Xfer Condition: Fair Prescriptions: New amoxicillin-pot clavulanate 875-125 mg Tablet 1 tab PO BID 6 Days Qty: 12 0RF gabapentin 100 mg Capsule 100 mg PO TID 30 Days Qty: 90 0RF pantoprazole 40 mg Tablet,Delayed Release (Dr/Ec) 40 mg PO QDAC 30 Days Qty: 30 0RF Continued (DME) [employer] BG System Refill 32 gauge kit See Rx Instructions .Route Qty: 300 0RF Rx Instructions: As directed (DME) blood-glucose meter Kit See Rx Instructions .Route Qty: 1 0RF Rx Instructions: As directed insulin glargine [Lantus Solostar U-100 Insulin] 100 unit/mL (3 mL) insulin pen 15 unit subcut QAM zolpidem 10 mg tablet 10 mg PO QPM Patient Comments: TAKE 1 TABLET BY MOUTH AT BEDTIME Eliquis 5 mg tablet 5 mg PO BID Patient Comments: TAKE 2 TABLETS BY MOUTH TWICE A DAY FOR 7 DAYS, THEN DECREASE TO 1 TABLET BY MOUTH TWICE A DAY THEREAFTER alprazolam 0.5 mg tablet 0.5 mg PO BID Patient Comments: TAKE ONE TABLET BY MOUTH TWICE DAILY venlafaxine 75 mg capsule,extended release 24hr 75 mg PO DAILY Discontinued dexamethasone 4 mg Tablet 6 mg PO DAILYWM 5 Days Qty: 8 0RF amoxicillin-pot clavulanate 875-125 mg tablet 1 tab PO BID 3 Days Qty: 6 0RF Activity Restrictions: No Restrictions Diet: Regular Health Concerns: You came into the hospital feeling poorly and was found to have a perforation in your bowel. You went to the OR on 07/21 for colon resection, colostomy. You were very sick, requiring ICU level of care in the immediate postoperative phase. You were also found to have positive blood cultures. We kept you on IV antibiotics for a week, and transition you to Augmentin. I would like for you to continue this for another week. You are discharging with a wound VAC, and will follow-up with general surgery to get your abdominal wound closed. You will need to recover for at least 3 months before we can take you back to the OR and attempt revision of your colostomy. Please follow-up with your primary care provider as well as with general surgery. Please reach out to healthcare provider for any fevers, chills, worsening abdominal pain Print Language: Czech Patient Instructions: Surg Dc Stand Alone Forms: SNF Discharge, PCP List Report called to and time (if no answer, doc. time of each call attempted): 0110 no answer Vitals documented within 30 minutes of discharge?: Yes Discharge Location: [facility]
--- NOTE | 2025-07-29 15:51 | PROVIDER PROGRESS NOTE ---
Subjective General Admit Date: 07/21/25 Procedure Date: 07/21/25 Post Op Days: 8 Procedure Performed: Exploratory laparotomy with end colostomy, Hartmanns Wound Assessment Wound/Incisions: positive Other (Open wound and I removed the wound vac, ostomy pink and productive) Review of Systems Status of ROS: 10 or more systems reviewed and unremarkable except as noted in history and below Exam Exam Vital Signs: Vital Signs x48h Temp Pulse Resp BP Pulse Ox 07/29/25 11:12 36.7 C 80 18 168/84 H 96 07/29/25 08:10 36.6 C 87 20 158/77 H 94 General: 74-year old female, appears stated age, well developed, well nourished HEENT: Normocephalic, atraumatic, extraocular movement intact, mucous membranes pink and moist, sclera anicteric and not injected Neck: Supple without pain on palpation, mass or bruit Cardiac: Regular rate and rhythm without rub, gallop, or murmur Chest: Clear to auscultation bilaterally Abdomen: Soft, minimal tenderness, I removed the wound vac and replaced with NS wet to dry, ostomy pink and productive, drain site clean and dry without erythema Genitourinary: Deferred Rectal: Deferred until colonoscopy Extremities: No gross neurovascular problem, no clubbing, cyanosis or edema Gait: Did not evalute as patient in bed and chair Psychiatric: Alert and oriented to person place and time, asks and answers questions appropriately, mood and affect appropriate ABX Reporting Has patient been on IV antibiotics over the past 48 hours?: No Impression/Plan Problem List (1) Sepsis: (2) Perforation of sigmoid colon due to diverticulitis: (3) RICCARDO (acute kidney injury): (4) Pulmonary embolus: (5) Bacteremia due to Streptococcus pneumoniae: (6) Community acquired pneumonia: (7) COVID: (8) Diabetes: Plan Agree with transfer to [facility]. Wound vac to be applied at [facility]. Tolerating general diet. Pain controlled. Working on strength and mobility. correction - consider restoring continuity in 9-12 months.
[2025-07-29] MEDS ORDERED: APIXABAN 5 MG TABLET PO SCH (21:00)
== END 2025-07-29 16:20 | DRG 853 ==
LOC: ED 16:53 → ICU 18:46 → FBP 07-22 00:12 → ICU 07-22 00:16 → MS3 07-23 19:27
PROVIDERS: ADMIT Physician Assistant Medical; ATTEND Surgery
DX: R11.0 Nausea; Z90.5 Acquired absence of kidney; E11.65 Type 2 diabetes mellitus with hyperglycemia; J18.9 Pneumonia, unspecified organism; I26.99 Other pulmonary embolism without acute cor pulmonale; J44.0 Chronic obstructive pulmonary disease with (acute) lower respiratory infection; R65.21 Severe sepsis with septic shock; G93.40 Encephalopathy, unspecified; A40.3 Sepsis due to Streptococcus pneumoniae; Z90.13 Acquired absence of bilateral breasts and nipples; Z79.01 Long term (current) use of anticoagulants; Z85.3 Personal history of malignant neoplasm of breast; Z79.899 Other long term (current) drug therapy; E46 Unspecified protein-calorie malnutrition; Z87.891 Personal history of nicotine dependence; U07.1 COVID-19; D62 Acute posthemorrhagic anemia; Z79.4 Long term (current) use of insulin; K65.0 Generalized (acute) peritonitis; K63.1 Perforation of intestine (nontraumatic); N17.9 Acute kidney failure, unspecified; Z68.35 Body mass index [BMI] 35.0-35.9, adult; J44.9 Chronic obstructive pulmonary disease, unspecified; K57.20 Diverticulitis of large intestine with perforation and abscess without bleeding